=== PATIENT | female | born 1990 | race Caucasian/White ===

== ENCOUNTER → 2019-01-12 | Outpatient (CLI) | payer OTHER, SELFPAY ==
[2019-01-10 10:26] VITALS: BMI 20.6
[2019-01-12 08:35] LABS: Estradiol 37.7 pg/mL; Follicle Stimulating Hormone 6.5 mIU/mL; Prolactin 23.5 ng/mL; Thyroid Stim Hormone (TSH) 3.67 uIU/mL (0.358-3.74)
== END | disposition home or self-care (01) ==
LOC: LAB 07:02
PROVIDERS: Family Provider Family Medicine; PCP Family Medicine; Referring Provider Obstetrics & Gynecology; Visit Provider Obstetrics & Gynecology
DX: N97.9 Female infertility, unspecified (principal); N94.6 Dysmenorrhea, unspecified
CPT/HCPCS: 36415; 82670; 83001; 84146; 84443

== ENCOUNTER → 2019-01-16 | Outpatient (CLI) | payer OTHER, SELFPAY ==
[2019-01-10 10:26] VITALS: BMI 20.6
--- NOTE | 2019-01-16 11:17 | US_ITS ---
STUDY: ULTRASOUND OF THE FEMALE PELVIS - COMPLETE REASON FOR EXAM: Female, 28 years old. Dysmenorrhea LMP: Unknown. TECHNIQUE: Transabdominal and Transvaginal TECHNICAL QUALITY: Adequate. COMPARISON: None. FINDINGS: The uterus is anteverted and is in a midline position. The uterus measures 7.0 x 4.0 x 3.0 cm. Normal uterine cervix. The endometrium measures 5.0 mm in thickness, and is fluid distended. There is no demonstrated endometrial mass. There is no demonstrated myometrial mass. I.U.D. - The patient does not have an I.U.D. The right ovary is visualized. The right ovary measures 3.2 x 2.4 x 2.4 cm. There is no right ovarian cyst or ovarian mass. There is no visualized right adnexal mass or complex lesion. There is normal arterial and normal venous vascularity. The left ovary is visualized. The left ovary measures 2.7 x 2.2 x 1.5 cm. There is no left ovarian cyst or ovarian mass. There is no visualized left adnexal mass or complex lesion. There is normal arterial and normal venous vascularity. There is no fluid in the cul-de-sac. The bladder is sonographically normal US/Transvaginal Non- IMPRESSION: Fluid distended uterus, likely due to hemorrhage. The uterus is heterogeneous but there is no discrete lesion. Sonographically normal ovaries No demonstrated free fluid Electronically Signed: Benja Lemons MD at 14:03 EDT , Service support ,
--- NOTE | 2019-01-16 11:17 | US_ITS ---
STUDY: ULTRASOUND OF THE FEMALE PELVIS - COMPLETE REASON FOR EXAM: Female, 28 years old. Dysmenorrhea LMP: Unknown. TECHNIQUE: Transabdominal and Transvaginal TECHNICAL QUALITY: Adequate. COMPARISON: None. FINDINGS: The uterus is anteverted and is in a midline position. The uterus measures 7.0 x 4.0 x 3.0 cm. Normal uterine cervix. The endometrium measures 5.0 mm in thickness, and is fluid distended. There is no demonstrated endometrial mass. There is no demonstrated myometrial mass. I.U.D. - The patient does not have an I.U.D. The right ovary is visualized. The right ovary measures 3.2 x 2.4 x 2.4 cm. There is no right ovarian cyst or ovarian mass. There is no visualized right adnexal mass or complex lesion. There is normal arterial and normal venous vascularity. The left ovary is visualized. The left ovary measures 2.7 x 2.2 x 1.5 cm. There is no left ovarian cyst or ovarian mass. There is no visualized left adnexal mass or complex lesion. There is normal arterial and normal venous vascularity. There is no fluid in the cul-de-sac. The bladder is sonographically normal US/Pelvic (Non ) IMPRESSION: Fluid distended uterus, likely due to hemorrhage. The uterus is heterogeneous but there is no discrete lesion. Sonographically normal ovaries No demonstrated free fluid Electronically Signed: Benja Lemons MD at 14:03 EDT , Service support ,
[2019-01-16 12:19] LABS: Free T3 2.7 pg/mL (2.18-3.98); T4 Free Direct 0.92 ng/dL (0.76-1.46)
== END | disposition home or self-care (01) ==
LOC: US 11:09
PROVIDERS: Family Provider Family Medicine; PCP Family Medicine; Referring Provider Obstetrics & Gynecology; Visit Provider Obstetrics & Gynecology
DX: N97.9 Female infertility, unspecified (principal); N94.6 Dysmenorrhea, unspecified; R79.89 Other specified abnormal findings of blood chemistry
CPT/HCPCS: 36415; 76830; 76856; 84439; 84481; 93976

== ENCOUNTER → 2019-01-18 | Outpatient (CLI) | payer OTHER, SELFPAY ==
[2019-01-10 10:26] VITALS: BMI 20.6
--- NOTE | 2019-01-18 14:55 | RAD_ITS ---
STUDY: HYSTEROSALPINGOGRAM REASON FOR EXAM: Female, 28 years old. Infertility FLUOROSCOPY TIME (if supplied): (0:17) minutes/seconds TECHNIQUE: Examination was performed by Dr. Nichole, fluoroscopy provided by Dr. Lemons COMPARISON: None. FINDINGS: Under fluoroscopic evaluation, an HSG was performed. Dr. Nichole place the catheter tip within the cervix, and injected contrast into the endometrium and fallopian tubes. There is a normal-appearing endometrium there is no impingement by mass lesion, and there is free flow of contrast into the fallopian tubes and into the pelvis. No stricture or obstruction noted. RAD/Salpingogram IMPRESSION: Normal study Electronically Signed: Benja Lemons MD at 7:46 EDT , Service support ,
--- NOTE | 2019-01-18 19:03 | OP.PCM_ITS ---
Problem List (1) Primary female infertility Status: Acute Comment: days 3 FSH, TSH, estradiol, prolactin, HSG day 7-10, pelvic ultrasound, semen analysis Report of Operation Date of Procedure: 01/18/19 Description of Procedure: Preop diagnosis: Infertility Postop diagnosis: Same plus bilateral tubal patency Procedure: Hysterosalpingogram Surgeon: Twyla Nichole Implantable devices: None Complications: None Findings: Bilateral tubal patency and normal uterine cavity Operative details: Patient was taken to the x-ray room and was placed on the x- ray table and was in the dorsal lithotomy position. Speculum was placed in the vagina and the cervix prepped with Betadine and the HSG catheter was easily introduced into the uterus and speculum removed. Radiologist was brought in and while pushing radiopaque dye into the uterus via the HSG catheter the radiologist took multiple images and views and confirmed bilateral tubal patency seen. No gross uterine filling defects or abnormalities were seen. All instruments removed from the vagina and the uterus without complication. Patient tolerated the procedure well.
== END | disposition home or self-care (01) ==
LOC: RAD 14:49
PROVIDERS: Family Provider Family Medicine; PCP Family Medicine; Referring Provider Obstetrics & Gynecology; Visit Provider Obstetrics & Gynecology
DX: N97.9 Female infertility, unspecified (principal)
CPT/HCPCS: 58340; 74740; Q9967

== ENCOUNTER → 2020-04-23 07:16 | Outpatient (CLI) | payer OTHER, SELFPAY ==
[2019-01-10 10:26] VITALS: BMI 20.6
[2020-04-23 07:49] LABS: hCG Titer Quant., Serum < 1 mIU/mL (1-3)
== END ==
PROVIDERS: PCP Family Medicine; Referring Provider Obstetrics & Gynecology Reproductive Endocrinology; Visit Provider Obstetrics & Gynecology Reproductive Endocrinology
DX: Z32.00 Encounter for pregnancy test, result unknown (principal)
CPT/HCPCS: 36415; 84702

== ENCOUNTER → 2020-11-19 07:29 | Outpatient (CLI) | payer OTHER, SELFPAY ==
[2019-01-10 10:26] VITALS: BMI 20.6
[2020-11-19 08:09] LABS: hCG Titer Quant., Serum 188 mIU/mL (1-3)
== END ==
PROVIDERS: PCP Family Medicine; Referring Provider Obstetrics & Gynecology Reproductive Endocrinology; Visit Provider Obstetrics & Gynecology Reproductive Endocrinology
DX: Z32.00 Encounter for pregnancy test, result unknown (principal)
CPT/HCPCS: 36415; 84702

== ENCOUNTER → 2020-11-21 07:19 | Outpatient (CLI) | payer OTHER, SELFPAY ==
[2019-01-10 10:26] VITALS: BMI 20.6
[2020-11-21 08:07] LABS: hCG Titer Quant., Serum 378 mIU/mL (1-3)
== END ==
PROVIDERS: PCP Family Medicine; Referring Provider Obstetrics & Gynecology Reproductive Endocrinology; Visit Provider Obstetrics & Gynecology Reproductive Endocrinology
DX: Z32.01 Encounter for pregnancy test, result positive (principal)
CPT/HCPCS: 36415; 84702

== ENCOUNTER → 2021-01-08 07:53 | Outpatient (CLI) | payer OTHER, SELFPAY ==
[2019-01-10 10:26] VITALS: BMI 20.6
[2021-01-08 09:00] LABS: NATERA MAILED SPECIMEN
== END ==
PROVIDERS: PCP Family Medicine
DX: O30.031 Twin pregnancy, monochorionic/diamniotic, first trimester (principal); Z36.82 Encounter for antenatal screening for nuchal translucency; Z3A.00 Weeks of gestation of pregnancy not specified
CPT/HCPCS: 36415

== ENCOUNTER → 2021-04-23 07:38 | Outpatient (CLI) | payer OTHER, SELFPAY ==
[2021-04-23 09:14] LABS: Absolute Lymphocyte Count 1.48 X10^3/uL (0.83-4.51); Absolute Neutrophil Count 6.4 X10^3/uL (2.0-7.7); Basophil# 0.03 X10^3/uL; Basophil% 0.3 % (0-1); Eosinophil# 0.08 X10^3/uL; Eosinophils% 0.9 % (0-5); Hemoglobin 12.9 g/dL (12.0-15.0); Lymphocyte # 1.48 X10^3/ul (0.83-4.51); Lymphocyte % 17.1 % (19-41); Mean Corp Hgb Conc 34.9 g/dL (32-36); Mean Corpuscular Hgb 32.7 pg (27.0-32.0); Mean Corpuscular Volume 93.7 fL (81-99); Mean Platelet Vol. 11.3 fl (6.2-12.0); Monocyte# 0.54 X10^3/uL; Monocyte% 6.2 % (0-10); NRBC Flagged by Analyzer 0 % (0-5); Neutrophil # 6.43 X10^3/uL (2.7-7.7); Neutrophil % 74.2 % (47-70); Platelet Count 290 K/mm3 (150-450); RBC Distribution Width SD 44.6 fl (35.1-43.9); Red Blood Count 3.95 M/mm3 (4.2-5.4); White Blood Count 8.7 K/mm3 (4.4-11.0)
[2021-04-23 09:37] LABS: Glucose Challenge Gest 1H 50g 151 mg/dL (70-140)
== END ==
PROVIDERS: PCP Family Medicine; Referring Provider Obstetrics & Gynecology; Visit Provider Obstetrics & Gynecology
DX: Z34.92 Encounter for supervision of normal pregnancy, unspecified, second trimester (principal); Z13.1 Encounter for screening for diabetes mellitus
CPT/HCPCS: 36415; 82950; 85025

== ENCOUNTER → 2021-04-27 06:46 | Outpatient (CLI) | payer OTHER, SELFPAY ==
[2021-04-27 08:33] LABS: Glucose GTT-Gestation. Fasting 72 mg/dL (<105)
[2021-04-27 08:38] LABS: Glucose GTT-Gestational 1 Hr 161 mg/dL (<190)
[2021-04-27 08:51] LABS: T4 Free Direct 0.88 ng/dL (0.76-1.46); Thyroid Stim Hormone (TSH) 2.91 uIU/mL (0.358-3.74)
[2021-04-27 09:35] LABS: Glucose GTT-Gestational 2 Hr 150 mg/dL (<165)
[2021-04-27 11:05] LABS: Glucose GTT-Gestational 3 Hr 138 L (<145)
== END ==
PROVIDERS: PCP Family Medicine; Referring Provider Obstetrics & Gynecology; Visit Provider Obstetrics & Gynecology
DX: Z34.92 Encounter for supervision of normal pregnancy, unspecified, second trimester (principal); Z3A.26 26 weeks gestation of pregnancy
CPT/HCPCS: 36415; 82951; 82952; 84439; 84443; 86850; 86900; 86901

== ENCOUNTER 2021-06-18 10:55 | Outpatient (CLI) | payer OTHER, SELFPAY ==
[2021-06-18 11:08] VITALS: BMI 27.3
[2021-06-18 11:11] VITALS: BP 139/86; PULSE 63; PULSE 67; TEMP 37.2; O2SAT 98
[2021-06-18 11:16] VITALS: PULSE 68; O2SAT 97
[2021-06-18 11:41] LABS: ROM Internal Control Test YES-OK TO RESULT pt. (Internal QC); ROM Patient Test Negative (Negative)
--- NOTE | 2021-07-01 21:02 | OB.TRI.HP_ITS ---
HPI - General HPI Narrative SRINIVASA KNIGHT, is a 31y/o @34 weeks who presents 06/18/2021 for possible leaking of fluid. This is her first and she is carrying mono/di twin girls via IVF Maternal Data Information MAGDALENA Calculator Estimated Delivery Date Method Current WG Current Estimate 07/29/21 LMP (Certain) 36w 0d # 2 PFSH PFSH Medical History (Updated 07/01/21 @ 21:[address] Andree Castillo DO) Abnormal glucose affecting Infertility Thyroid disorder Home Medications ferrous sulfate 325 mg (65 mg iron) tablet 325 mg PO DAILY 04/23/21 [History Last Taken 06/18/21 08:00] vitamins no.119-iron fumarate 29 mg-folic acid 1 mg tablet 1 tab PO DAILY 05/05/21 [History Last Taken 06/18/21 08:00] levothyroxine [Synthroid] 12.5 mcg PO DAILY 06/18/21 [History Last Taken 06/18/21 08:00] docusate sodium [Colace] 100 mg PO DAILY 14 Days #14 cap 06/21/21 [Rx Last Taken Unknown] ibuprofen 800 mg PO Q8H PRN 7 Days #30 tab 06/21/21 [Rx Last Taken Unknown] oxycodone-acetaminophen [Percocet] 1 tab PO Q4H PRN 7 Days #28 tab 06/21/21 [Rx Last Taken Unknown] citalopram 20 mg PO DAILY #30 tab 06/24/21 [Rx Last Taken Unknown] ibuprofen 600 mg PO Q6H #30 tab 06/24/21 [Rx Last Taken Unknown] oxycodone 5 - 10 mg PO Q4H PRN PRN 7 Days #20 tab 06/24/21 [Rx Last Taken Unknown] Allergy/AdvReac Type Severity Reaction Status Date / Time No Known Allergies Allergy Verified 06/20/21 13:33 Family History Father Cancer skin Sister Cancer hodgkins lymphoma 2010 Surgical History (Updated 06/21/21 @ 02:[address] 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 Elective abortions Hx Para 0 Spontaneous abortions 1 Hx # Term Pregnancies Ectopic pregnancies Hx # Pregnancies Multiple births # of living children 0 Visit Details Expected Delivery Route/Plan if vtx vtx Labor Preferences- CB/BF classes: yes labor support person: Rachid labor intervention preferences: [] pain management options preferred: epidural cut cord/dad catch: yes : [] PP control planned: [] discussed possible routes of delivery and associated risks: [] special requests: [] Plans covid status: vaccinated september 2020 moderna flu vaccine: given tdap vaccine: discussed rhogam: na LARC form signed: declined movement and labor precautions reviewed. Problem list reviewed and updated with the most current plan of care details and appropriate orders placed. Relevant counseling for the gestational age provided. Continue routine care and follow up unless otherwise noted in visit notes/problem list details OB Flowsheet Initial Weight: 125 lb Date -?-?-?-?-?-?-?-?-?-?-?-?- EGA Weight BP Urine Prot -?-?-?-?-?-?-?-?-?-?-?-?- Glucose FHR FuHt Pres Dilation -?-?-?-?-?-?-?-?-?-?-?-?- Effaced St Visit Note 01/16/21 -?-?-?-?-?-?-?-?-?-?-?-?- 12w 2d 129 lb (+4 lb) -?-?-?-?-?-?-?-?-?-?-?-?- A 168 -?-?-?-?-?-?-?-?-?-?-?-?- B 165 A -?-?-?-?-?-?-?-?-?-?-?-?- B -?-?-?-?-?-?-?-?-?-?-?-?- A -?-?-?-?-?-?-?-?-?-?-?-?- B A SM- doing well -?-?-?-?-?-?-?-?-?-?-?-?- B 01/30/21 -?-?-?-?-?-?-?-?-?-?-?-?- 14w 2d 133 lb (+8 lb) Negative -?-?-?-?-?-?-?-?-?-?-?-?- Negative A 155 -?-?-?-?-?-?-?-?-?-?-?-?- B 160 A -?-?-?-?-?-?-?-?-?-?-?-?- B -?-?-?-?-?-?-?-?-?-?-?-?- A -?-?-?-?-?-?-?-?-?-?-?-?- B A SM- no vb crampi ng. -?-?-?-?-?-?-?-?-?-?-?-?- B 02/25/21 -?-?-?-?--?-?-?-?-?-?-?-?- 18w 0d 138 lb 6 oz (+13 lb 6 oz) 126/80 Negative -?-?-?-?-?-?-?-?-?-?-?-?- Negative A 155 -?-?-?-?-?-?-?-?-?-?-?-?- B 150 A -?-?-?-?-?-?-?-?-?-?-?-?- B -?-?-?-?-?-?-?-?-?-?-?-?- A -?-?-?-?-?-?-?-?-?-?-?-?- B A GP - no cramping or bleeding. Discussed timing of delivery with mono-di twins. -?-?-?-?-?-?-?-?-?-?-?-?- B 03/25/21 -?-?-?-?-?-?-?-?-?-?-?-?- 22w 0d 145 lb (+20 lb) -?-?-?--?-?-?-?-?-?-?-?-?- A 155 -?-?-?-?-?-?-?-?-?-?-?-?- B 160 A -?-?-?-?-?-?-?-?-?-?-?-?- B -?-?-?-?-?-?-?-?-?-?-?-?- A -?-?-?-?-?-?-?-?-?-?--?-?- B A SM- no vb elsii ng -?-?-?-?-?-?-?-?-?-?-?-?- B 04/23/21 -?-?-?-?-?-?-?-?-?-?-?-?- 26w 1d 150 lb (+25 lb) 132/82 -?-?-?-?-?-?-?-?-?-?-?-?- A 165 -?-?-?-?-?-?-?-?-?-?-?-?- B 130 A -?-?-?-?-?-?-?-?-?-?-?-?- B -?-?-?-?-?-?-?-?-?-?-?-?- A -?-?-?-?-?-?-?-?-?-?-?-?- B A Sm- no vb lof go od fm no regular ctx needs 3 hour gtt -?-?-?-?-?-?-?-?-?-?-?-?- B 05/05/21 -?-?-?-?-?-?-?-?-?-?-?-?- 27w 6d 152 lb (+27 lb) 114/70 -?-?-?-?-?-?-?-?-?-?-?-?- A 130 -?-?-?-?-?-?-?-?-?-?-?-?- B 140 A -?-?-?-?-?-?-?-?-?-?-?-?- B -?-?-?-?-?-?-?-?-?-?-?-?- A -?-?-?-?-?-?-?-?-?-?-?-?- B A SM- no vb lof go od fm no regular ctx -?-?-?-?-?-?-?-?-?-?-?-?- B 05/19/21 -?-?-?-?-?--?-?-?-?-?-?-?- 29w 6d 154 lb (+29 lb) 132/80 Negative -?-?-?-?-?-?-?-?-?-?-?-?- Negative A 145 -?-?-?-?-?-?-?-?-?-?-?-?- B 135 A Cephalic -?-?-?-?-?-?-?-?-?-?-?-?- B Cephalic -?-?-?-?-?-?-?-?-?-?-?-?- A -?-?-?-?-?-?-?-?-?-?-?-?- B A m- no vb lof goo d fm no regular ctx -?-?-?-?-?-?-?-?-?-?-?-?- B 06/01/21 -?-?-?-?-?-?-?-?-?-?-?-?- 31w 5d 157 lb (+32 lb) 112/74 Negative -?-?-?-?-?-?-?-?-?-?-?-?- Negative A 145 -?-?-?-?-?-?-?-?-?-?-?-?- B 145 A -?-?-?-?-?-?-?-?-?-?-?-?- B -?-?-?-?-?-?-?-?-?-?-?-?- A -?-?-?-?-?-?-?-?-?-?-?-?- B A SM- no vb lof go od fm no regular ctx -?-?-?-?-?-?-?-?-?-?-?-?- B 06/10/21 -?-?-?-?-?-?-?-?-?-?-?-?- 33w 0d 162 lb (+37 lb) 118/62 Negative -?-?-?-?-?-?-?-?-?-?-?-?- A 160 -?-?-?-?-?-?-?-?-?-?-?-?- B 163 A Cephalic -?-?-?-?-?-?-?-?-?-?-?-?- B Cephalic 0 -?-?-?-?--?-?-?-?-?-?-?-?- 40 A -3 -?-?-?-?-?-?-?-?-?-?-?-?- B A JV- pt is having some pelvic discomfort and feels abdomen tightening. cx closed. mfm appts every tuesday now. -?-?-?-?-?-?-?-?-?-?-?-?- B 06/18/21 -?-?-?-?-?-?-?-?-?-?-?-?- 34w 1d 164 lb 0.383 oz (+39 lb 0.383 oz) 139/86 -?-?-?-?-?-?-?-?-?-?-?-?- A -?-?-?-?-?-?-?-?-?-?-?-?- B A -?-?-?-?-?-?-?-?-?-?-?-?- B -?-?-?-?-?-?-?-?-?-?-?-?- A -?-?-?-?-?-?-?-?-?-?-?-?- B A -?-?-?-?-?-?-?-?-?-?-?-?- B 06/20/21 -?-?-?-?-?-?-?-?-?-?-?-?- 35w 0d 163 lb 2.273 oz (+38 lb 2.273 oz) 132/77 137/83 135/87 123/72 123/72 125/76 125/81 124/57 108/58 106/59 95/58 95/58 102/69 102/69 157/110 157/110 182/128 122/56 122/56 121/68 121/68 120/67 120/67 124/67 124/67 127/70 127/70 127/70 127/76 132/83 30 mg/dl (Negative) H -?-?-?-?-?-?-?-?-?-?-?-?- A -?-?-?-?-?-?-?-?-?-?-?-?- B A -?-?-?-?-?-?-?-?-?-?-?-?- B -?-?-?-?-?-?-?-?-?-?-?-?- A -?-?-?-?-?-?-?-?-?-?-?-?- B A admitted for PPR OM -?-?-?-?-?-?-?-?-?-?-?-?- B ROS Constitutional Constitutional: Reports systems reviewed and no addt'l complaints, except as documented Gastrointestinal Gastrointestinal: Denies bloating, constipation, cramping, diarrhea, nausea or vomiting Genitourinary Genitourinary: Reports other Details: Denies vaginal odor, vaginal bleeding, or vaginal discharge ; Denies difficulty urinating or flank pain Physical Exam HEENT normocephalic Resp normal respiratory effort and normal air movement no CVA tenderness Amniotic Fluid: Negative for ROM+plus Extremity normal to inspection General Extremity: edema bilateral (trace ) NST FHR Rate Baby A Baseline: 140 Variability:: Moderate Accelerations:: 15 x 15 Decelerations:: None NST Reactive:: Yes FHR Category:: Category I FHR Rate Baby B Baseline: 140 Variability:: Moderate Accelerations:: 15 x 15 Decelerations:: None NST Reactive:: Yes FHR Category:: Category I Assessment & Plan (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 (2) Monochorionic diamniotic twin gestation: PLAN: reactive NST x 2 (both twins), ROM + was negative. labor precautions discussed RTO in 4 days for further assessment. Charges/Coding Multi Select Codes Visit Charges Office Visit/Consults: 81407 OV L3 Est Urinary/Genital Urinary/Genital CPT Codes: 81601-24 non-stress test Interp
--- NOTE | 2021-07-01 21:02 | OB.TRI.NOTE ---
HPI - General HPI Narrative SRINIVASA KNIGHT, is a 31y/o @34 weeks who presents 06/18/2021 for possible leaking of fluid. This is her first and she is carrying mono/di twin girls via IVF Maternal Data Information MAGDALENA Calculator Estimated Delivery Date Method Current WG Current Estimate 07/29/21 LMP (Certain) 36w 0d # 2 PFSH PFSH Medical History (Updated 07/01/21 @ 21:[address] Andree Castillo DO) Abnormal glucose affecting Infertility Thyroid disorder Home Medications ferrous sulfate 325 mg (65 mg iron) tablet 325 mg PO DAILY 04/23/21 [History Last Taken 06/18/21 08:00] vitamins no.119-iron fumarate 29 mg-folic acid 1 mg tablet 1 tab PO DAILY 05/05/21 [History Last Taken 06/18/21 08:00] levothyroxine [Synthroid] 12.5 mcg PO DAILY 06/18/21 [History Last Taken 06/18/21 08:00] docusate sodium [Colace] 100 mg PO DAILY 14 Days #14 cap 06/21/21 [Rx Last Taken Unknown] ibuprofen 800 mg PO Q8H PRN 7 Days #30 tab 06/21/21 [Rx Last Taken Unknown] oxycodone-acetaminophen [Percocet] 1 tab PO Q4H PRN 7 Days #28 tab 06/21/21 [Rx Last Taken Unknown] citalopram 20 mg PO DAILY #30 tab 06/24/21 [Rx Last Taken Unknown] ibuprofen 600 mg PO Q6H #30 tab 06/24/21 [Rx Last Taken Unknown] oxycodone 5 - 10 mg PO Q4H PRN PRN 7 Days #20 tab 06/24/21 [Rx Last Taken Unknown] Allergy/AdvReac Type Severity Reaction Status Date / Time No Known Allergies Allergy Verified 06/20/21 13:33 Family History Father Cancer skin Sister Cancer hodgkins lymphoma 2010 Surgical History (Updated 06/21/21 @ 02:[address] 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 Hx Para 0 Spontaneous abortions 1 Hx # Term Pregnancies Ectopic pregnancies Hx # Pregnancies Multiple births # of living children 0 Visit Details Expected Delivery Route/Plan if vtx vtx Labor Preferences- CB/BF classes: yes labor support person: Rachid labor intervention preferences: [] pain management options preferred: epidural cut cord/dad catch: yes : [] PP control planned: [] discussed possible routes of delivery and associated risks: [] special requests: [] Plans covid status: vaccinated september 2020 moderna flu vaccine: given tdap vaccine: discussed rhogam: na LARC form signed: declined movement and labor precautions reviewed. Problem list reviewed and updated with the most current plan of care details and appropriate orders placed. Relevant counseling for the gestational age provided. Continue routine care and follow up unless otherwise noted in visit notes/problem list details OB Flowsheet Initial Weight: 125 lb Date <del>?</del> EGA Weight BP Urine Prot <del>?</del> Glucose FHR FuHt Pres Dilation <del>?</del> Effaced St Visit Note 01/16/21 <del>?</del> 12w 2d 129 lb (+4 lb) <del>?</del> A 168 <del>?</del> B 165 A <del>?</del> B <del>?</del> A <del>?</del> B A SM- doing well <del>?</del> B 01/30/21 <del>?</del> 14w 2d 133 lb (+8 lb) Negative <del>?</del> Negative A 155 <del>?</del> B 160 A <del>?</del> B <del>?</del> A <del>?</del> B A SM- no vb cramping. <del>?</del> B 02/25/21 <del>?</del> 18w 0d 138 lb 6 oz (+13 lb 6 oz) 126/80 Negative <del>?</del> Negative A 155 <del>?</del> B 150 A <del>?</del> B <del>?</del> A <del>?</del> B A GP - no cramping or bleeding. Discussed timing of delivery with mono-di twins. <del>?</del> B 03/25/21 <del>?</del> 22w 0d 145 lb (+20 lb) <del>?</del> A 155 <del>?</del> B 160 A <del>?</del> B <del>?</del> A <del>?</del> B A SM- no vb cramping <del>?</del> B 04/23/21 <del>?</del> 26w 1d 150 lb (+25 lb) 132/82 <del>?</del> A 165 <del>?</del> B 130 A <del>?</del> B <del>?</del> A <del>?</del> B A Sm- no vb lof good fm no regular ctx needs 3 hour gtt <del>?</del> B 05/05/21 <del>?</del> 27w 6d 152 lb (+27 lb) 114/70 <del>?</del> A 130 <del>?</del> B 140 A <del>?</del> B <del>?</del> A <del>?</del> B A SM- no vb lof good fm no regular ctx <del>?</del> B 05/19/21 <del>?</del> 29w 6d 154 lb (+29 lb) 132/80 Negative <del>?</del> Negative A 145 <del>?</del> B 135 A Cephalic <del>?</del> B Cephalic <del>?</del> A <del>?</del> B A m- no vb lof good fm no regular ctx <del>?</del> B 06/01/21 <del>?</del> 31w 5d 157 lb (+32 lb) 112/74 Negative <del>?</del> Negative A 145 <del>?</del> B 145 A <del>?</del> B <del>?</del> A <del>?</del> B A SM- no vb lof good fm no regular ctx <del>?</del> B 06/10/21 <del>?</del> 33w 0d 162 lb (+37 lb) 118/62 Negative <del>?</del> A 160 <del>?</del> B 163 A Cephalic <del>?</del> B Cephalic 0 <del>?</del> 40 A -3 <del>?</del> B A JV- pt is having some pelvic discomfort and feels abdomen tightening. cx closed. mfm appts every tuesday now. <del>?</del> B 06/18/21 <del>?</del> 34w 1d 164 lb 0.383 oz (+39 lb 0.383 oz) 139/86 <del>?</del> A <del>?</del> B A <del>?</del> B <del>?</del> A <del>?</del> B A <del>?</del> B 06/20/21 <del>?</del> 35w 0d 163 lb 2.273 oz (+38 lb 2.273 oz) 132/77 137/83 135/87 123/72 123/72 125/76 125/81 124/57 108/58 106/59 95/58 95/58 102/69 102/69 157/110 157/110 182/128 122/56 122/56 121/68 121/68 120/67 120/67 124/67 124/67 127/70 127/70 127/70 127/76 132/83 30 mg/dl (Negative) H <del>?</del> A <del>?</del> B A <del>?</del> B <del>?</del> A <del>?</del> B A admitted for PPROM <del>?</del> B ROS Constitutional Constitutional: Reports systems reviewed and no addt'l complaints, except as documented Gastrointestinal Gastrointestinal: Denies bloating, constipation, cramping, diarrhea, nausea or vomiting Genitourinary Genitourinary: Reports other Details: Denies vaginal odor, vaginal bleeding, or vaginal discharge ; Denies difficulty urinating or flank pain Physical Exam HEENT normocephalic Resp normal respiratory effort and normal air movement no CVA tenderness Amniotic Fluid: Negative for ROM+plus Extremity normal to inspection General Extremity: edema bilateral (trace ) NST FHR Rate Baby A Baseline: 140 Variability:: Moderate Accelerations:: 15 x 15 Decelerations:: None NST Reactive:: Yes FHR Category:: Category I FHR Rate Baby B Baseline: 140 Variability:: Moderate Accelerations:: 15 x 15 Decelerations:: None NST Reactive:: Yes FHR Category:: Category I Assessment & Plan (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 (2) Monochorionic diamniotic twin gestation: PLAN: reactive NST x 2 (both twins), ROM + was negative. labor precautions discussed RTO in 4 days for further assessment. Charges/Coding Multi Select Codes Visit Charges Office Visit/Consults: 06823 OV L3 Est Urinary/Genital Urinary/Genital CPT Codes: 38798-48 non-stress test Interp
== END 2021-06-18 12:05 | disposition home or self-care (01) ==
LOC: WPOUT 10:58 → WP 10:59
PROVIDERS: PCP Family Medicine; Visit Provider Obstetrics & Gynecology
DX: O99.283 Endocrine, nutritional and metabolic diseases complicating pregnancy, third trimester (principal); E71.310 Long chain/very long chain acyl CoA dehydrogenase deficiency; E07.9 Disorder of thyroid, unspecified; O30.033 Twin pregnancy, monochorionic/diamniotic, third trimester; Z3A.34 34 weeks gestation of pregnancy; Z79.899 Other long term (current) drug therapy
CPT/HCPCS: 59025; 59050; 84112; 99218; G0378

== ENCOUNTER 2021-06-20 14:00 | Inpatient (IN) | payer OTHER, SELFPAY ==
[2021-06-20] VITALS (19 sets, daily range): BP systolic 123–137; BP diastolic 72–87; PULSE 52–71; RESP 18; TEMP 36.8–37.2; O2SAT 97–99; BMI 27.1
[2021-06-20 13:58] LABS: ROM Internal Control Test YES-OK TO RESULT pt. (Internal QC)
[2021-06-20 13:59] LABS: ROM Patient Test POSITIVE (Negative)
--- NOTE | 2021-06-20 14:43 | HP.PCM.OB_ITS ---
HPI - General General Date of Admission: 06/20/21 HPI Narrative SRINIVASA KNIGHT, is a 31 @ 34 weeks 3 days who presents to L&D after experiencing a large gush of fluid at 9am. She presented to l&D at around 2 pm. She denies fevers, vaginal bleeding ,or dec fm. Her is a result of IVF and she is with twin mono/di girls. Maternal Data Information MAGDALENA Calculator Estimated Delivery Date Method Current WG Current Estimate 07/29/21 LMP (Certain) 34w 3d # 2 PFSH PFSH Medical History Abnormal glucose affecting Home Medications ferrous sulfate 325 mg (65 mg iron) tablet 325 mg PO DAILY 04/23/21 [History Last Taken 06/18/21 08:00] vitamins no.119-iron fumarate 29 mg-folic acid 1 mg tablet 1 tab PO DAILY 05/05/21 [History Last Taken 06/18/21 08:00] aspirin [Aspir-Low] 81 mg PO DAILY 06/18/21 [History Last Taken 06/18/21 08:00] levothyroxine [Synthroid] 12.5 mcg PO DAILY 06/18/21 [History Last Taken 06/18/21 08:00] Allergy/AdvReac Type Severity Reaction Status Date / Time No Known Allergies Allergy Verified 06/20/21 13:33 Family History Father Cancer skin Sister Cancer hodgkins lymphoma 2010 Surgical History History of wisdom tooth extraction, class II edentulism Social History Smoking Status: Never smoker alcohol intake: current details: social substance use type: does not use caffeine: Yes what type of physical activity do you participate in: walking frequency: 5-6 times per week seatbelt use: always do you feel safe at home: Yes additional social history: Rachid- 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 [employer] History 2 Elective abortions Hx Para 0 Spontaneous abortions 1 Hx # Term Pregnancies Ectopic pregnancies Hx # Pregnancies Multiple births # of living children 0 Visit Details Expected Delivery Route/Plan if vtx vtx Labor Preferences- CB/BF classes: yes labor support person: Rachid labor intervention preferences: [] pain management options preferred: epidural cut cord/dad catch: yes : [] PP control planned: [] discussed possible routes of delivery and associated risks: [] special requests: [] Plans covid status: vaccinated september 2020 moderna flu vaccine: given tdap vaccine: discussed rhogam: na LARC form signed: declined movement and labor precautions reviewed. Problem list reviewed and updated with the most current plan of care details and appropriate orders placed. Relevant counseling for the gestational age provided. Continue routine care and follow up unless otherwise noted in visit notes/problem list details OB Flowsheet Initial Weight: 125 lb Date -?-?-?-?-?-?-?-?-?-?-?-?- EGA Weight BP Urine Prot -?-?-?-?-?-?-?-?-?-?-?-?- Glucose FHR FuHt Pres Dilation -?-?-?-?-?-?-?-?-?-?-?-?- Effaced St Visit Note 01/16/21 -?-?-?-?-?-?-?-?-?-?-?-?- 12w 2d 129 lb (+4 lb) -?-?-?-?-?-?-?-?-?-?-?-?- A 168 -?-?-?-?-?-?-?-?-?-?-?-?- B 165 A -?-?-?-?-?-?-?-?-?-?-?-?- B -?-?-?-?-?-?-?-?-?-?-?-?- A -?-?-?-?-?-?-?-?-?-?-?-?- B A SM- doing well -?-?-?-?-?-?-?-?-?-?-?-?- B 01/30/21 -?-?-?-?-?-?-?-?-?-?-?-?- 14w 2d 133 lb (+8 lb) Negative -?-?-?-?-?-?-?-?-?-?-?-?- Negative A 155 -?-?-?-?-?-?-?-?-?-?-?-?- B 160 A -?-?-?-?-?-?-?-?-?-?-?-?- B -?-?-?-?-?-?-?-?-?-?-?-?- A -?-?-?-?-?-?-?-?-?-?-?-?- B A SM- no vb crampi ng. -?-?-?-?-?-?-?-?-?-?-?-?- B 02/25/21 -?-?-?-?-?-?-?-?-?-?-?-?- 18w 0d 138 lb 6 oz (+13 lb 6 oz) 126/80 Negative -?-?-?-?-?-?-?-?-?-?-?-?- Negative A 155 -?-?-?-?-?-?-?-?-?-?-?-?- B 150 A -?-?-?-?-?-?-?-?-?-?-?-?- B -?-?-?-?-?-?-?-?-?-?-?-?- A -?-?-?-?-?-?-?-?-?-?-?-?- B A GP - no cramping or bleeding. Discussed timing of delivery with mono-di twins. -?-?-?-?-?-?-?-?-?-?-?-?- B 03/25/21 -?-?-?-?-?-?-?-?-?-?-?-?- 22w 0d 145 lb (+20 lb) -?-?-?-?-?-?-?-?-?-?-?-?- A 155 -?-?-?-?-?-?-?-?-?-?-?-?- B 160 A -?-?-?-?-?-?-?-?-?-?-?-?- B -?-?-?-?-?-?-?-?-?-?-?-?- A -?-?-?-?-?-?-?-?-?-?-?-?- B A SM- no vb isiah ng -?-?-?-?-?-?-?-?-?-?-?-?- B 04/23/21 -?-?-?-?-?-?-?-?-?-?-?-?- 26w 1d 150 lb (+25 lb) 132/82 -?-?-?-?-?-?-?-?-?-?-?-?- A 165 -?-?-?-?-?-?-?-?-?-?-?-?- B 130 A -?-?-?-?-?-?-?-?-?-?-?-?- B -?-?-?-?-?-?-?-?-?-?-?-?- A -?-?-?-?-?-?-?-?-?-?-?-?- B A Sm- no vb lof go od fm no regular ctx needs 3 hour gtt -?-?-?-?-?-?-?-?-?-?-?-?- B 05/05/21 -?-?-?-?-?-?-?-?-?-?-?-?- 27w 6d 152 lb (+27 lb) 114/70 -?-?-?-?-?-?-?-?-?-?-?-?- A 130 -?-?-?-?-?-?-?-?-?-?-?-?- B 140 A -?-?-?-?-?-?-?-?-?-?-?-?- B -?-?-?-?-?-?-?-?-?-?-?-?- A -?-?-?-?-?-?-?-?-?-?-?-?- B A SM- no vb lof go od fm no regular ctx -?-?-?-?-?-?-?-?-?-?-?-?- B 05/19/21 -?-?-?-?-?-?-?-?-?-?-?-?- 29w 6d 154 lb (+29 lb) 132/80 Negative -?-?-?-?-?-?-?-?-?-?-?-?- Negative A 145 -?-?-?-?-?-?-?-?-?-?-?-?- B 135 A Cephalic -?-?-?-?-?-?-?-?-?-?-?-?- B Cephalic -?-?-?-?-?-?-?-?-?-?-?-?- A -?-?-?-?-?-?-?-?-?-?-?-?- B A m- no vb lof goo d fm no regular ctx -?-?-?-?-?-?-?-?-?-?-?-?- B 06/01/21 -?-?-?-?-?-?-?-?-?-?-?-?- 31w 5d 157 lb (+32 lb) 112/74 Negative -?-?-?-?-?-?-?-?-?-?-?-?- Negative A 145 -?-?-?-?-?-?-?-?-?-?-?-?- B 145 A -?-?-?-?-?--?-?-?-?-?-?-?- B -?-?-?-?-?-?-?-?-?-?-?-?- A -?-?-?-?-?-?-?-?-?-?-?-?- B A SM- no vb lof go od fm no regular ctx -?-?-?-?-?-?-?-?-?-?-?-?- B 06/10/21 -?-?-?-?-?-?-?-?-?-?-?-?- 33w 0d 162 lb (+37 lb) 118/62 Negative -?-?-?-?-?-?-?-?-?-?-?-?- A 160 -?-?-?-?-?-?-?-?-?-?-?-?- B 163 A Cephalic -?-?-?-?-?-?-?-?-?-?-?-?- B Cephalic 0 -?-?-?-?-?-?-?-?-?-?-?-?- 40 A -3 -?-?-?-?-?-?-?-?-?-?-?-?- B A JV- pt is having some pelvic discomfort and feels abdomen tightening. cx closed. mfm appts every tuesday now. -?-?-?-?-?-?-?-?-?-?-?-?- B 06/20/21 -?-?-?-?-?-?-?-?-?-?-?-?- 34w 3d 163 lb 2.273 oz (+38 lb 2.273 oz) 132/77 -?-?-?-?-?-?-?-?-?-?-?-?- A -?-?-?-?-?-?-?-?-?-?-?-?- B A -?-?-?-?-?-?-?-?-?-?-?-?- B -?-?-?-?-?-?-?-?-?-?-?-?- A -?-?-?-?-?-?-?-?-?-?-?-?- B A admitted for PPR OM -?-?-?-?-?-?-?-?-?-?-?-?- B ROS Constitutional Constitutional: Denies change in weight, fatigue, fever(s), headache(s), poor appetite or weakness Eyes Eyes: Denies blurry vision, change in vision, seeing flashes or spots in vision ENT HEENT: Denies dizziness, headache(s), loss taste/smell or sore throat Cardiovascular Cardiovascular: Denies chest pain, dizziness, dyspnea, irregular heart rhythm, leg edema, palpitations, rapid heart rate or vomiting Respiratory/Chest Respiratory/Chest: Denies chest tightness, cough, dyspnea or breast pain Gastrointestinal Gastrointestinal: Denies abdominal pain, anorexia, constipation, cramping, diarrhea, hemorrhoids, vomiting or weight changes Genitourinary Genitourinary: Denies dysuria, flank pain, genital lesions, genital pain, urinary frequency or urinary urgency Musculoskeletal Musculoskeletal: Denies back pain, difficulty walking, joint pain, limited range of motion, muscle cramps or numbness Integumentary Integumentary: Denies lesions or unusual bruising Neurologic Neurologic: Denies abnormal movements, abnormal speech, dizziness, numbness, seizure-like activity or syncope Psychiatric Psychiatric: Denies anxiety, behavioral changes, change in appetite, change in libido, cognitive impairment, confusion, depression, difficulty concentrating, hallucinations or suicidal thoughts Endocrine Endocrinology: Denies excessive sweating, polydipsia or polyuria Hematologic/Lymphatic Hematologic/Lymphatic: Denies easy bleeding, easy bruising or lymphadenopathy Allergic/Immunologic Allergic/Immunologic: Denies itchy eyes, lip swelling, seasonal rhinorrhea, rhin itis, throat swelling, tongue swelling, eczemia, wheezing or asthma Vital Signs Vital Signs Vital Signs: 06/20/21 13:41 Temperature 98.7 F Temperature Source Temporal Pulse Rate 60 Blood Pressure 132/77 H BP Systolic 132 BP Diastolic 77 Weight Weight: 163 lb 2.273 oz Body Mass Index (BMI) 27.1 Physical Exam Const alert, oriented x3, no apparent distress and healthy appearing General Appearance: cooperative; Negative for anxious HEENT normocephalic Face and Sinus: normal facial exam Eyes EOMs intact bilaterally and no scleral icterus General Eye: normal appearance of both eyes Neck full ROM and supple Lymph Lymphatic: no lymphadenopathy noted Chest Chest: abnormal inspection of the chest Resp normal respiratory effort Effort and Inspection: able to speak in complete sentences Cardio regular rate GI soft to palpation and non-tender Inspection: gravid Palpation: soft; Negative for tender external exam normal Amniotic Fluid: ROM+plus and other cx: /-2, twins are vtx/vtx both FHT are reactive cat 1 toco showing irritability every 1 min. 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 (2) Abnormal glucose: COMMENT: 3 hr GTT nl (3) conceived through in vitro fertilization: COMMENT: US every 2 wk, anatomy 18 wks, nl echo at 22wks, growth every 4 wks. wkly BPP after 32 wks. wkly NST @ 32 weeks all done at [facility] (4) Monochorionic diamniotic twin gestation: COMMENT: girls, seeing MFM for monitoring. Anatomy US normal; wkly bpp with mfm after 32 weeks (5) : QUALIFIERS: Weeks of gestation: 33 weeks Qualified Code(s): Z3A.33 - 33 weeks gestation of COMMENT: deliver @ 37 wks, low risk genetic at [facility]. neg urine culture anatomy reviewed. (6) Supervision of high-risk : COMMENT: PRR MAGDALENA 07/29/21 identical girl/girl surprise Archid (7) premature rupture of membranes (PPROM) delivered, current hospitalization: PLAN: plan to admit and give steroids (12.5 mg celestone), IV abx, amp + azith if no active labor after 24 hrs will induce with pitocin
[2021-06-20] MEDS: Lactated Ringers 1,000 ML 50 ML IV (14:55)
[2021-06-20 15:18] LABS: Absolute Lymphocyte Count 2.12 X10^3/uL (0.83-4.51); Basophil# 0.03 X10^3/uL; Basophil% 0.3 % (0-1); Eosinophil# 0.02 X10^3/uL; Eosinophils% 0.2 % (0-5); Hematocrit 42.5 % (37-47); Hemoglobin 14.6 g/dL (12.0-15.0); Lymphocyte # 2.12 X10^3/ul (0.83-4.51); Lymphocyte % 19.3 % (19-41); Mean Corp Hgb Conc 34.4 g/dL (32-36); Mean Corpuscular Hgb 31.7 pg (27.0-32.0); Mean Corpuscular Volume 92.4 fL (81-99); Monocyte% 6.4 % (0-10); NRBC Flagged by Analyzer 0 % (0-5); Neutrophil # 8.01 X10^3/uL (2.7-7.7); Platelet Count 260 K/mm3 (150-450); RBC Distribution Width CV 11.9 % (11.6-14.6); RBC Distribution Width SD 40.8 fl (35.1-43.9)
[2021-06-20 15:25] LABS: Group B Strep DNA By PCR Negative (Negative); Internal Control PASS; Specimen Processing Control PASS
[2021-06-20 15:26] LABS: Probe Check PASS
[2021-06-20] MEDS: Azithromycin 250 MG Tablet 500 MG PO (16:22)
[2021-06-20] MEDS: Betamethasone/Betamethasone 30 MG/5 ML Vial 12 MG IM (16:24)
[2021-06-20 16:51] LABS: Color, Urine Yellow (Yellow); Glucose, Dipstick Normal (Normal); Ketone-Dipstick 15 mg/dl (Negative); Leukocyte Esterase-Dipstick 25 /ul (Negative); Mucous, Urine 0 SEEN /hpf (<or=2+); Nitrite-Dipstick Negative (Negative); Occult Blood-Urine 150 /ul (Negative); Protein-Dipstick 30 mg/dl (Negative); Urine Bilirubin Dipstick Negative (Negative); Urine Clarity Sl. Cloudy (Clear); Urine Urobilinogen Normal (Normal)
[2021-06-20 16:59] LABS: Squamous Epithelial Cells - UA 10-25 SEEN /hpf (5-10)
[2021-06-20 17:00] LABS: Red Blood Cells-Urine 25-50 SEEN /hpf (0-5); White Blood Cells 5-10 SEEN /hpf (0-5)
[2021-06-20 17:02] LABS: Bacteria 1+ /hpf (None Seen)
[2021-06-20] MEDS: Lactated Ringers 500 ML 999 ML IV ×2 (20:43→23:19)
[2021-06-20] MEDS: Zolpidem Tartrate 5 MG Tablet PO (21:14)
[2021-06-20] MEDS: Ondansetron 4 MG/2 ML Vial IV (22:07)
[2021-06-20 23:01] LABS: Chlamydia Trachomatis by PCR Negative (Negative); Neisserai gonorrhoeae by PCR Negative (Negative); Probe Check PASS; Sample Adequacy Control PASS; Specimen Processing Control PASS
[2021-06-21] VITALS (43 sets, daily range): BP systolic 95–182; BP diastolic 56–128; PULSE 55–144; RESP 14–18; TEMP 36.3–36.8; O2SAT 96–100
[2021-06-21] MEDS: fentaNYL-bupivacaine (epidural) 100 ML BAG EPIDURAL (00:15)
--- NOTE | 2021-06-21 01:20 | RAD_ITS ---
HISTORY: instrument count in OR . No other history provided. EXAMINATION/TECHNIQUE: XR Abdomen 1 View: COMPARISON: None FINDINGS: LINES AND TUBES: No radiodense foreign bodies appreciated within the imaged abdomen or pelvis. Upper abdomen is excluded from the study. BOWEL GAS PATTERN: Non-obstructive. No bowel or stomach distention. ORGANOMEGALY: Central abdominal pelvic mass like soft tissue attenuation CALCIFICATIONS: No abnormal calcifications observed. BONES AND SOFT TISSUES: No acute pathology. RAD/Abdomen Single View IMPRESSION: No evidence of radiodense foreign body within the imaged portion of the abdomen or pelvis. Prominent masslike density within the mid abdomen and pelvis, most commonly representing postgravid uterus. at 0520 Reported and signed by: Sj Jin MD Electronically Signed: Sj Jin MD at 5:19 EST Tel , Service support ,
[2021-06-21] MEDS: Oxytocin 30 units/NS 500 ml 30 UNITS/500 ML IV.SOLN 167 UNITS IV (01:50)
--- NOTE | 2021-06-21 02:19 | EX.PCM.OBRPT ---
Assessment & Plan (1) Supervision of high-risk : COMMENT: PRR MAGDALENA 07/29/21 identical girl/girl surprise Rachid (2) : QUALIFIERS: Weeks of gestation: 33 weeks Qualified Code(s): Z3A.33 - 33 weeks gestation of COMMENT: deliver @ 37 wks, low risk genetic at [facility]. neg urine culture anatomy reviewed. (3) Monochorionic diamniotic twin gestation: COMMENT: girls, seeing MFM for monitoring. Anatomy US normal; wkly bpp with mfm after 32 weeks (4) conceived through in vitro fertilization: COMMENT: US every 2 wk, anatomy 18 wks, nl echo at 22wks, growth every 4 wks. wkly BPP after 32 wks. 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 (7) premature rupture of membranes (PPROM) delivered, current hospitalization: (8) bradycardia during labor: Maternal Data Information MAGDALENA Calculator Estimated Delivery Date Method Current WG Current Estimate 07/29/21 LMP (Certain) 34w 4d # 2 Details Operative Information Date of Procedure: 06/21/21 Pre-Operative Diagnosis: Brewster/di twin gestation 34 weeks 5 days , PPROM, prolonged bradycardia (baby a) Post-Operative Diagnosis: Brewster/di twin gestation 34 weeks 5 days , PPROM, prolonged bradycardia (baby a) Indications for : Nonreassuring Status Classification: Stat Procedure Type: low transverse Type of Anesthesia: Epidural Antibiotic Given: Ancef 2 grams IV x1 Estimated Blood Loss: 500cc Findings Description of Procedure: Preprocedure note: The patient is a 31 y/o [id number] presented to L&D with a mono/di twin gestation and premature rupture of membranes that occurred at 0900. She presented to L&D around 1400 and antibiotics were started along with one dose of celestone. Expectant management for 24 hrs was planned however at 0028 Nursing called with report that they could not find a heart rate on baby A. At 0024 and prior there was moderate variability with + accelerations and at 0025 the heart rate decelerated down to the 50's and then was lost. A FSE was placed at 0028. The patient was rushed to the OR for a STAT section at 0031. Epidural anesthesia was in place. Rivas catheter was placed. The patient was placed in the dorsal supine position with leftward tilt. Patient was splash prepped and draped in the normal sterile fashion. Incision time was 0040. Procedure: A Pfannenstiel skin incision was made with the scalpel and carried through to the underlying layer of fascia with the scalpel. Fascia was incised in the midline and the incision extended laterally using the scalpel. The rectus bellies were cut and the peritoneum was entered digitally. The incision was stretched and a low transverse uterine incision was made with the scalpel. The 's head was delivered atraumatically followed by the anterior and posterior shoulders without complication the rest of the infant delivered. The cord was clamped and cut and the was handed off to awaiting nurse. There was noted to be a lose nuchal cord and the was pale and floppy. The second membrane bag was then ruptured and Baby B's head was grasped and delivered atraumatically followed by the anterior and posterior shoulders without difficulty. The second baby was vigorous and crying and moving of all 4 extremities. The placenta was delivered spontaneously immediately following and was noted to be intact and have a three-vessel cord. The uterus was exteriorized cleared of all clots and debris, and the incision was closed in a double layer closure using #1 Vicryl first followed by a #1 Monocryl in an imbricating layer. The ovaries and fallopian tubes were noted to be within normal limits. The uterus was returned to the maternal abdomen and gutters were cleared of all clots and debris. The peritoneum was closed with 3-0 Monocryl in a running fashion. The Fascia was closed with 0 Stratafix sutrue in a running fashion. Subcutaneous tissue was copiously irrigated and the skin was closed with 3-0 Monocryl in a subcuticular fashion. Mepilex dressing was applied without complication. Patient was taken to recovery in stable condition. It was discussed with the patient that based on the clinical information obtained during this encounter that the baby A infant is being cared for by the wildlife biostation research ecologist and transportation was being arranged. Cord blood was collected for gases, however clotted and information is not available Presentation: Positive for Vertex Amniotic Membrane Rupture Type: Spontaneous Time of Membrane Ruptured: 9 am on 06/20/21 Amniotic Fluid Description: Clear Placenta Disposition: Sent to Pathology Cord Vessel Description: 3 Vessels Cord Entanglement: Around neck x 1, loose Nuchal Cord Compression: With compression Cord Gases: ABG and VBG Infant A Gender: Female Delayed Cord Clamping: No Baby B Operative Information Mode of Delivery: Cord Vessel Description: 3 Vessels Cord Entanglement: None Infant B gender: Female (1 minute): 8 (5 minute): 9 Delayed Cord Clamping: No Multi Select Codes Urinary/Genital Urinary/Genital CPT Codes: 81104 Delivery [facility]
--- NOTE | 2021-06-21 02:41 | PCM.DC ---
Discharge Instructions Diet Discharge Diet: No restrictions Activity Discharge Activity: May Not Drive (for 2 weeks or while taking narcotic pain medications.), May Shower and May Take a Tub Bath (in 7 days.) May resume sexual activity in: 4-6 weeks Weight Bearing Status: Full weight bearing Lifting Restrictions: 20 pounds Dressing / Incision Call your doctor if your incision/area has: Continuous Slow Oozing, Sudden Increased Bleeding, Increased Pain/ Swelling, Increased Redness and Foul Smelling Discharge Call your doctor if you observe: Fever of 101 or Higher and Using more than 1 pad per hour Suture Line Care: Avoid Pulling/Pushing and Avoid Pinching/Bending Cleanse incision/area with: Soap & Water and Keep Dressing Clean & Dry Follow Up Care Please Follow Up With: Andree Castillo DO When: Call [phone] to make an appointment for an incision check in 1-2 weeks. Test Results: Test results from this visit will be discussed in further detail at your follow-up appointment, if applicable. Discharge Plan Admission Admit Date/Time: 06/20/21 14:00 Primary Reason for Your Visit: section Attending Provider: Andree Castillo Primary Care Provider: Magalis Damico Discharge Orders/Prescriptions Prescriptions: New docusate sodium [Colace] 100 mg capsule 100 mg PO DAILY 14 Days Qty: 14 RF: 0 ibuprofen 800 mg tablet 800 mg PO Q8H PRN (Reason: pain) 7 Days Qty: 30 RF: 0 oxycodone-acetaminophen [Percocet] 5-325 mg tablet 1 tab PO Q4H PRN (Reason: pain (scale score 7-10)) 7 Days Qty: 28 RF: 0 Continued ferrous sulfate 325 mg (65 mg iron) tablet 325 mg PO DAILY RF: 0 PNV 119-iron fum-folic acid 29 mg iron- 1 mg tablet 1 tab PO DAILY RF: 0 levothyroxine [Synthroid] 25 mcg tablet 12.5 mcg PO DAILY RF: 0 Discontinued aspirin [Aspir-Low] 81 mg Tablet,Delayed Release (Dr/Ec) 81 mg PO DAILY RF: 0 Referrals / Follow Up: Magalis Damico MD [Primary Care Provider] - Disposition Disposition (needs filled in before D/C Order can be placed): Home, Self Care
[2021-06-21] MEDS: Acetaminophen 500 MG Tablet 1000 MG PO ×3 (03:39→16:18)
[2021-06-21] MEDS: Ketorolac 30 MG/ML Syringe IV ×2 (04:52→12:00)
[2021-06-21] MEDS: Lactated Ringers 1,000 ML 100 ML IV (04:52)
[2021-06-21] MEDS: Enoxaparin 40 MG/0.4 ML Syringe SC (09:31)
[2021-06-21] MEDS: Senna/Docusate Sodium 1 Tablet PO (09:31)
--- NOTE | 2021-06-21 09:47 | PCM.PN.OB ---
Subjective Subjective Patient doing well without complaints. Tolerating PO. Feeding well. Denies chest pain, shortness of breath, calf pain/swelling, fevers, chills, lightheadedness. Objective Data Objective Data Vital Signs: Vital Signs Temp Pulse Resp BP Pulse Ox 97.7 F L 63 16 127/76 H 100 06/21/21 09:17 06/21/21 09:17 06/21/21 09:17 06/21/21 09:17 06/21/21 09:17 Oxygen Delivery Method Room Air Weight: 163 lb 2.273 oz Body Mass Index (BMI) 27.1 Intake & Output: Intake and Output for Last 24 Hours 06/19/21 06/20/21 06/21/21 23:59 23:59 23:59 Intake Total 2117.50 / 2117.50 1140 / 1140 Output Total 250 / 250 Balance 2117.50 / 2117.50 890 / 890 Lab / Micro Data Result Diagrams: 06/20/21 14:55 Labs: Laboratory Results - last 24 hr 06/20/21 13:48: Vag Amniotic Fld Detect POSITIVE H 06/20/21 14:15: Group B Strep DNA Negative, Specimen Comment Not Reportable 06/20/21 14:55: WBC 11.0, RBC 4.60, Hgb 14.6, Hct 42.5, MCV 92.4, MCH 31.7, MCHC 34.4, RDW Std Deviation 40.8, RDW Coeff of Teo 11.9, Plt Count 260, MPV 13.0 H, Immature Gran % (Auto) 0.800, Neut % (Auto) 73.0 H, Lymph % (Auto) 19.3, Hardin % (Auto) 6.4, Eos % (Auto) 0.2, Baso % (Auto) 0.3, Absolute Neuts (auto) 8.0 H, Absolute Lymphs (auto) 2.12, Nucleated RBC % 0 06/20/21 14:55: Blood Type A POSITIVE, Antibody Screen NEGATIVE 06/20/21 16:30: Urine Color Yellow, Urine Clarity Sl. Cloudy, Urine pH 6.0, Ur Specific [place] 1.020, Urine Protein 30 H, Urine Glucose (UA) Normal, Urine Ketones 15 H, Urine Occult Blood 150 H, Urine Nitrite Negative, Urine Bilirubin Negative, Urine Urobilinogen Normal, Ur Leukocyte Esterase 25 H, Urine RBC 25-50 SEEN, Urine WBC 5-10 SEEN, Ur Squamous Epith Cells 10-25 SEEN, Urine Bacteria 1+, Urine Mucus 0 SEEN 06/20/21 20:20: Chlam trachomat DNA PCR Negative, N.gonorrhoeae DNA (PCR) Negative Micro: Microbiology 06/20/21 17:00 Nasal Secretion SARS-CoV-2 Antigen (Rapid) - Final Radiography Diagnostic Testing: Radiology Impression KUB X-Ray 06/21/21 01:20 IMPRESSION: No evidence of radiodense foreign body within the imaged portion of the abdomen or pelvis. Prominent masslike density within the mid abdomen and pelvis, most commonly representing postgravid uterus. at 0520 Reported and signed by: Sj Jin MD Electronically Signed: Sj Jin MD at 5:19 EST Tel , Service support , ROS Constitutional Constitutional: Reports systems reviewed and no addt'l complaints, except as documented Cardiovascular Cardiovascular: Denies chest pain, dizziness, dyspnea or irregular heart rhythm Respiratory/Chest Respiratory/Chest: Denies cough, pain on inspiration or shortness of breath at rest Gastrointestinal Gastrointestinal: Denies abdominal pain, nausea or vomiting Genitourinary Genitourinary: Denies burning urination Musculoskeletal Musculoskeletal: Denies muscle cramps, muscle spasms or muscle weakness Neurologic Neurologic: Denies confusion, dizziness, headache(s) or lack of coordination Psychiatric Psychiatric: Denies anxiety, behavioral changes or depression Physical Exam HEENT normocephalic Resp normal respiratory effort and normal air movement GI soft to palpation, non-tender and non-distended Rectal Exam: other Other Details: Incision is clean, dry, and intact no CVA tenderness Extremity normal to inspection General Extremity: edema bilateral (trace ) Assessment & Plan (1) Delivery by section: (2) bradycardia during labor: (3) Supervision of high-risk : COMMENT: PRR MAGDALENA 07/[birth year]/21 identical girl/girl surprise Rachid (4) : QUALIFIERS: Weeks of gestation: 33 weeks Qualified Code(s): Z3A.33 - 33 weeks gestation of COMMENT: deliver @ 37 wks, low risk genetic at I. neg urine culture anatomy reviewed. (5) Monochorionic diamniotic twin gestation: COMMENT: girls, seeing MFM for monitoring. Anatomy US normal; wkly bpp with mfm after 32 weeks (6) conceived through in vitro fertilization: COMMENT: US every 2 wk, anatomy 18 wks, nl echo at 22wks, growth every 4 wks. wkly BPP after 32 wks. 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 (9) premature rupture of membranes (PPROM) delivered, current hospitalization: PLAN: s/p LTCS PPD # 1 1. routine post care 2. breast feeding- support given- baby a is in [place] NICU, baby b is in special care nursery here 3. rh positive 4. rubella immune 5. plan to dc patient so that she may be with her children as needed.
[2021-06-21] MEDS: Ondansetron 4 MG/2 ML Vial IV (09:58)
--- NOTE | 2021-06-21 17:08 | NURSING ---
void missed hat
[2021-06-21] MEDS: Ibuprofen 600 MG Tablet PO (21:41)
[2021-06-22] MEDS: Acetaminophen 500 MG Tablet 1000 MG PO ×4 (02:01→21:07)
[2021-06-22 02:03] VITALS: BP 124/79; PULSE 56; RESP 18; TEMP 36.5
[2021-06-22] MEDS: Ibuprofen 600 MG Tablet PO ×4 (04:22→23:32)
[2021-06-22 06:11] LABS: Hematocrit 31.5 % (37-47); Mean Corp Hgb Conc 34.9 g/dL (32-36); Mean Corpuscular Hgb 32.3 pg (27.0-32.0); Mean Corpuscular Volume 92.4 fL (81-99); Mean Platelet Vol. 12.2 fl (6.2-12.0); Platelet Count 230 K/mm3 (150-450); RBC Distribution Width SD 40.6 fl (35.1-43.9); Red Blood Count 3.41 M/mm3 (4.2-5.4); White Blood Count 16.9 K/mm3 (4.4-11.0)
[2021-06-22] MEDS: oxyCODONE 5 MG Tablet PO ×4 (06:18→21:07)
--- NOTE | 2021-06-22 06:36 | PCM.PN.OB ---
Subjective Subjective Patient doing well without complaints. Tolerating PO. Ambulating and voiding without difficulty. Feeding well. Denies chest pain, shortness of breath, calf pain/swelling, fevers, chills, lightheadedness. Baby A will likely be sent back to us today for comfort care measures. pt is very tearful but emotionally strong and level headed. Objective Data Objective Data Vital Signs: Vital Signs Temp Pulse Resp BP Pulse Ox 97.7 F L 56 L 18 124/79 H 98 06/22/21 02:03 06/22/21 02:03 06/22/21 02:03 06/22/21 02:03 06/21/21 21:41 Oxygen Delivery Method Room Air Weight: 163 lb 2.273 oz Body Mass Index (BMI) 27.1 Intake & Output: Intake and Output for Last 24 Hours 06/20/21 06/21/21 06/22/21 23:59 23:59 23:59 Intake Total 2117.50 / 2117.50 2140 / 2140 Output Total 1600 / 1600 900 / 900 Balance 2117.50 / 2117.50 540 / 540 -900 / -900 Lab / Micro Data Result Diagrams: 06/22/21 05:55 Labs: Laboratory Results - last 24 hr 06/22/21 05:55: WBC 16.9 H, RBC 3.41 L, Hgb 11.0 L, Hct 31.5 L, MCV 92.4, MCH 32.3 H, MCHC 34.9, RDW Std Deviation 40.6, RDW Coeff of Teo 12.0, Plt Count 230, MPV 12.2 H Micro: Microbiology 06/20/21 17:00 Nasal Secretion SARS-CoV-2 Antigen (Rapid) - Final ROS Constitutional Constitutional: Reports systems reviewed and no addt'l complaints, except as documented; Denies change in weight, fatigue, fever(s), headache(s), poor appetite or weakness Eyes Eyes: Denies blurry vision, change in vision, seeing flashes or spots in vision ENT HEENT: Denies dizziness, headache(s), loss taste/smell or sore throat Cardiovascular Cardiovascular: Denies chest pain, dizziness, dyspnea, irregular heart rhythm, leg edema, palpitations, rapid heart rate or vomiting Respiratory/Chest Respiratory/Chest: Denies chest tightness, cough, dyspnea, pain on inspiration, shortness of breath at rest or breast pain Gastrointestinal Gastrointestinal: Denies abdominal pain, anorexia, constipation, cramping, diarrhea, hemorrhoids, nausea, vomiting or weight changes Genitourinary Genitourinary: Denies burning urination, dysuria, flank pain, genital lesions, genital pain, urinary frequency or urinary urgency Musculoskeletal Musculoskeletal: Denies back pain, difficulty walking, joint pain, limited range of motion, muscle cramps, muscle spasms, muscle weakness or numbness Integumentary Integumentary: Denies lesions or unusual bruising Neurologic Neurologic: Denies abnormal movements, abnormal speech, confusion, dizziness, headache(s), lack of coordination, numbness, seizure-like activity or syncope Psychiatric Psychiatric: Denies anxiety, behavioral changes, change in appetite, change in libido, cognitive impairment, confusion, depression, difficulty concentrating, hallucinations or suicidal thoughts Endocrine Endocrinology: Denies excessive sweating, polydipsia or polyuria Hematologic/Lymphatic Hematologic/Lymphatic: Denies easy bleeding, easy bruising or lymphadenopathy Allergic/Immunologic Allergic/Immunologic: Denies itchy eyes, lip swelling, seasonal rhinorrhea, rhinitis, throat swelling, tongue swelling, eczemia, wheezing or asthma Physical Exam Const alert, oriented x3, no apparent distress and healthy appearing General Appearance: cooperative; Negative for anxious HEENT normocephalic Eyes EOMs intact bilaterally and no scleral icterus General Eye: normal appearance of both eyes Neck full ROM and supple Lymph Lymphatic: no lymphadenopathy noted Chest Chest: abnormal inspection of the chest Resp normal respiratory effort and normal air movement Effort and Inspection: able to speak in complete sentences Cardio regular rate GI soft to palpation, non-tender and non-distended Inspection: gravid Palpation: soft; Negative for tender Rectal Exam: other Other Details: Incision is clean, dry, and intact no CVA tenderness and external exam normal Amniotic Fluid: ROM+plus and other cx: 2/90/-2, twins are vtx/vtx both FHT are reactive cat 1 toco showing irritability every 1 min. Back/Spine no CVA tenderness Extremity normal to inspection, full ROM and no clubbing, cyanosis or edema General Extremity: edema bilateral (trace ); Negative for calf tenderness Skin Lesions: no lesions Rashes: no rashes Psych mental status grossly normal Assessment & Plan (1) Delivery by section: (2) bradycardia during labor: (3) Supervision of high-risk : COMMENT: PRR MAGDALENA 07/29/21 identical girl/girl surprise Rachid (4) : QUALIFIERS: Weeks of gestation: 33 weeks Qualified Code(s): Z3A.33 - 33 weeks gestation of COMMENT: deliver @ 37 wks, low risk genetic at [facility] [place]. neg urine culture anatomy reviewed. (5) Monochorionic diamniotic twin gestation: COMMENT: girls, seeing MFM for monitoring. Anatomy US normal; wkly bpp with mfm after 32 weeks (6) conceived through in vitro fertilization: COMMENT: US every 2 wk, anatomy 18 wks, nl echo at 22wks, growth every 4 wks. wkly BPP after 32 wks. 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 (9) premature rupture of membranes (PPROM) delivered, current hospitalization: PLAN: s/p LTCS PPD # 2 1. routine post care 2. breast feeding- support given- baby a is in [place] NICU, baby b is in special care nursery here. Baby A will come back today for comfort care measures 3. rh positive 4. rubella immune 5. plan to dc patient so that she may be with her children as needed vs keep her today for her own comfort and recovery
[2021-06-22 08:06] VITALS: BP 107/69; PULSE 63; RESP 14; TEMP 36.1; O2SAT 98
[2021-06-22] MEDS: Enoxaparin 40 MG/0.4 ML Syringe SC (10:36)
[2021-06-22] MEDS: Senna/Docusate Sodium 1 Tablet PO (10:36)
--- NOTE | 2021-06-22 13:15 | CASEMGMT ---
Social Work Labor and Delivery Consult received for this mother of baby (MOB) who delivered 34 week twins. Consult due to Baby A transferred to [facility] and Baby B in [facility] (where for continuity of care of families on the SCN, this personal lines underwriter also provides social work services to the SCN). Collaboration with unit staff today, and learned that Baby A, Whitney, is being transferred back to [facility] for comfort care measures. This personal lines underwriter met with MOB in room. Introduced to self and roles for both hospital systems, offered support, and let MOB know that this personal lines underwriter is available as needed and will be touching base with MOB again to talk more about how MOB is doing/coping and review issues (mood, anxiety, grief). MOB voiced receptivity to plan. MOB teary eyed a few times, appropriately so to content discussed. Appears to have supportive family, and shared that looking forward to having FOB arrive, as FOB has been in [place] with Whitney. MOB has not yet been able to hold Whitney, and the FOB has not yet been able to hold Baby B, Ck, who has been in the [facility]. Plan: Social work to follow and assist as needed. -SENIA Smart, DRIVER LICENSE AGENT
[2021-06-22 16:13] VITALS: BP 132/83; PULSE 70
[2021-06-22 16:15] VITALS: BP 132/83; PULSE 70; RESP 18; TEMP 36.1
[2021-06-22 19:54] VITALS: BP 134/88; PULSE 73; RESP 18; TEMP 36.6
[2021-06-23 02:34] VITALS: BP 136/86; PULSE 59; RESP 18; TEMP 36.2
[2021-06-23] MEDS: Acetaminophen 500 MG Tablet 1000 MG PO ×4 (02:39→22:02)
[2021-06-23] MEDS: Ibuprofen 600 MG Tablet PO ×3 (06:05→18:31)
--- NOTE | 2021-06-23 07:51 | PN.OBGYN_ITS ---
Subjective Subjective Patient doing well without complaints. Tolerating PO. Ambulating and voiding without difficulty. feeding well. Denies chest pain, shortness of breath, calf pain/swelling, fevers, chills, lightheadedness. coping appropriately with loss, support given. discussed starting celexa for mental health support Objective Data Objective Data Vital Signs: Vital Signs Temp Pulse Resp BP Pulse Ox 97.2 F L 59 L 18 136/86 H 98 06/23/21 02:34 06/23/21 02:34 06/23/21 02:34 06/23/21 02:34 06/22/21 08:06 Oxygen Delivery Method Room Air Weight: 163 lb 2.273 oz Body Mass Index (BMI) 27.1 Intake & Output: Intake and Output for Last 24 Hours 06/21/21 06/22/21 06/23/21 23:59 23:59 23:59 Intake Total 2140 / 2140 Output Total 1600 / 1600 900 / 900 Balance 540 / 540 -900 / -900 Lab / Micro Data Result Diagrams: 06/22/21 05:55 Micro: Microbiology 06/20/21 16:30 Urine, Clean Catch Urine Culture - Final Mixed Gram Positive Organisms 06/20/21 Unknown Genital vaginal Group B Streptococcus Culture - Preliminary Group B Beta Streptococcus is not isolated. 06/20/21 17:00 Nasal Secretion SARS-CoV-2 Antigen (Rapid) - Final ROS Constitutional Constitutional: Reports systems reviewed and no addt'l complaints, except as documented Cardiovascular Cardiovascular: Reports systems reviewed and no addt'l complaints, except as documented Respiratory/Chest Respiratory/Chest: Reports systems reviewed and no addt'l complaints, except as documented Gastrointestinal Gastrointestinal: Reports systems reviewed and no addt'l complaints, except as documented Physical Exam Const alert, oriented x3 and no apparent distress HEENT Head and Scalp: atraumatic Resp normal respiratory effort GI soft to palpation and non-tender Inspection: incision intact, healing well and drainage (none) Bimanual Exam - Vag & Uterus: uterus non-tender Uterus Palpation: uterus fundus firm (below Umbilicus) Assessment & Plan (1) of child: COMMENT: Whitney, lost on day 2 of life. 34 week PPROM (2) Delivery by section: (3) Monochorionic diamniotic twin gestation: COMMENT: girls, seeing [facility] for monitoring. Anatomy US normal; wkly bpp with mfm after 32 weeks PLAN: s/p LTCS PPD # 2 1. routine post care 2. breast feeding- support given 3. rh positive 4. rubella immune start celexa
[2021-06-23] MEDS: Senna/Docusate Sodium 1 Tablet PO (09:31)
[2021-06-23] MEDS: Citalopram 20 MG Tablet PO (09:31)
[2021-06-23] MEDS: Enoxaparin 40 MG/0.4 ML Syringe SC (09:32)
[2021-06-23 09:48] VITALS: BP 125/80; PULSE 65; RESP 18; TEMP 36.7
[2021-06-23 12:21] VITALS: BP 131/77; PULSE 57; RESP 16; TEMP 36.6
--- NOTE | 2021-06-23 17:35 | CASEMGMT ---
Social Work Labor and Delivery Met with patient/mother of baby (MOB) and father of baby (FOB) at baby deo Stover's bedside in the [facility]. Introduced self to the FOB as had not yet met the FOB. Offered condolences on the passing of baby deo Olson on 06.22.21. MOB and FOB report the time with Aria and family was good, and helpful to have family present at the hospital. Active listening, support, reflection and encouragement provided. Parents express thought would like information on counseling, as both feel this would be helpful to access down the road. This administrative underwriter agreed to get some resources together that may be helpful to this family. Touched on depression, anxiety, and grief; that this can be discussed further at another time. Answered parents questions as able. 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 MOB had planned to be off through October, and FOB had panned for at least 2 weeks but can take more if needed. Discussed that something to consider is level of support when Ck is discharged from the [facility], that if possible for MOB to have support from someone at time of Ck's discharge, this would be likely be a positive thing. FOB reported this make sense and something to think about as FOB plans his time off from work. Parents appropriate in affect and mood. Good eye contact, and presenting as supportive of one another. Explored parents feelings on heber Stover. Both identify to feel a connection with Ck. Encouraged self care, taking breaks, getting fresh air, and even setting boundaries with others if start to feel overwhelmed (such as taking own time to respond to well meaning texts and calls from others). Plan: MOB anticipates discharge on 06.24.2021 to hotel status. Social work will remain available to this family however during Ck's stay in the [facility]. -SHADIA Smart, JOURNEYMAN MECHANIC
[2021-06-23 18:33] VITALS: BP 132/76; PULSE 61; RESP 18; TEMP 36.8
[2021-06-23 19:42] VITALS: BP 131/76; PULSE 65; RESP 16; TEMP 36.7
[2021-06-24] MEDS: Ibuprofen 600 MG Tablet PO ×3 (01:53→14:31)
[2021-06-24 01:54] VITALS: BP 115/64; PULSE 58; RESP 16; TEMP 36.8
[2021-06-24] MEDS: Acetaminophen 500 MG Tablet 1000 MG PO ×3 (03:02→15:53)
[2021-06-24 08:06] VITALS: BP 131/82; PULSE 98; RESP 16; TEMP 37
[2021-06-24] MEDS: Senna/Docusate Sodium 1 Tablet PO (09:36)
[2021-06-24] MEDS: Citalopram 20 MG Tablet PO (09:36)
[2021-06-24] MEDS: Enoxaparin 40 MG/0.4 ML Syringe SC (09:37)
--- NOTE | 2021-06-24 11:47 | PCM.PN.OB ---
Subjective Subjective Patient doing well without complaints. Tolerating PO. Ambulating and voiding without difficulty. feeding well. Denies chest pain, shortness of breath, calf pain/swelling, fevers, chills, lightheadedness. Objective Data Objective Data Vital Signs: Vital Signs Temp Pulse Resp BP Pulse Ox 98.6 F 98 16 131/82 H 98 06/24/21 08:06 06/24/21 08:06 06/24/21 08:06 06/24/21 08:06 06/22/21 08:06 Oxygen Delivery Method Room Air Weight: 163 lb 2.273 oz Body Mass Index (BMI) 27.1 Intake & Output: Intake and Output for Last 24 Hours 06/22/21 06/23/21 06/24/21 23:59 23:59 23:59 Output Total 900 / 900 Balance -900 / -900 Lab / Micro Data Result Diagrams: 06/22/21 05:55 Micro: Microbiology 06/20/21 Unknown Genital vaginal Group B Streptococcus Culture - Final Group B Beta Streptococcus is not isolated. 06/20/21 16:30 Urine, Clean Catch Urine Culture - Final Mixed Gram Positive Organisms 06/20/21 17:00 Nasal Secretion SARS-CoV-2 Antigen (Rapid) - Final ROS Constitutional Constitutional: Reports systems reviewed and no addt'l complaints, except as documented Cardiovascular Cardiovascular: Reports systems reviewed and no addt'l complaints, except as documented Respiratory/Chest Respiratory/Chest: Reports systems reviewed and no addt'l complaints, except as documented Gastrointestinal Gastrointestinal: Reports systems reviewed and no addt'l complaints, except as documented Physical Exam Const alert, oriented x3 and no apparent distress HEENT Head and Scalp: atraumatic Resp normal respiratory effort GI soft to palpation and non-tender Inspection: incision intact, healing well and drainage (none) Bimanual Exam - Vag & Uterus: uterus non-tender Uterus Palpation: uterus fundus firm (below Umbilicus) Assessment & Plan (1) of child: COMMENT: Aria, lost on day 2 of life. 34 week PPROM (2) Delivery by section: (3) Monochorionic diamniotic twin gestation: COMMENT: girls, seeing MFM for monitoring. Anatomy US normal; wkly bpp with mfm after 32 weeks PLAN: s/p LTCS PPD # 3 1. routine post care 2. breast feeding- support given 3. rh positive 4. rubella immune start celexa
--- NOTE | 2021-06-24 11:48 | DS.PCM_ITS ---
Providers Date of Admission: 06/20/21 Primary Care Physician: Dr. Magalis Damico MD Reason For Visit: LABOR AND DELIVERY Diagnosis Discharge Diagnosis (1) of child: Status: Acute Code(s): Z63.4 - Disappearance and of family member (2) Delivery by section: Status: Acute (3) Monochorionic diamniotic twin gestation: Status: Acute Code(s): O30.039 - Twin , monochorionic/diamniotic, unspecified trimester Medications at Discharge Home Medications ferrous sulfate 325 mg (65 mg iron) tablet 325 mg PO DAILY 04/23/21 vitamins no.119-iron fumarate 29 mg-folic acid 1 mg tablet 1 tab PO DAILY 05/05/21 levothyroxine [Synthroid] 12.5 mcg PO DAILY 06/18/21 docusate sodium [Colace] 100 mg PO DAILY 14 Days #14 cap 06/21/21 ibuprofen 800 mg PO Q8H PRN 7 Days #30 tab 06/21/21 oxycodone-acetaminophen [Percocet] 1 tab PO Q4H PRN 7 Days #28 tab 06/21/21 citalopram 20 mg PO DAILY #30 tab 06/24/21 ibuprofen 600 mg PO Q6H #30 tab 06/24/21 oxycodone 5 - 10 mg PO Q4H PRN PRN 7 Days #20 tab 06/24/21 Hospital Course Summary of Care Provided Hospital Course: 31-year-old G2, P0 presented at 34 weeks with PPROM with mono di twins. was conceived via IVF and had been receiving cocare with maternal- medicine and [facility]. She was given steroids initially and manage expectantly, may change to 6 cm and then baby A had a bradycardia and was delivered via stat . Both babies were delivered and see special care nursery information for resuscitation and supportive efforts. Maternal recovery was routine physically with return of bowel and bladder function, she was ambulating tolerating p.o. and had adequate pain cont rol with oral medications and was stable for discharge to home on postop day three. Patient was started on Celexa due to the stress of losing one of the twins, as well as pain medication which was prescribed for routine post recovery. Weight / BMI Weight Weight: 163 lb 2.273 oz Body Mass Index (BMI) 27.1 ABG / Lab / Microbiology Data Result Diagrams: 06/22/21 05:55 Microbiology: Microbiology 06/20/21 Unknown Genital vaginal Group B Streptococcus Culture - Final Group B Beta Streptococcus is not isolated. 06/20/21 16:30 Urine, Clean Catch Urine Culture - Final Mixed Gram Positive Organisms 06/20/21 17:00 Nasal Secretion SARS-CoV-2 Antigen (Rapid) - Final D/C Instructions Discharge Diet: No restrictions Discharge Activity: May Not Drive (for 2 weeks or while taking narcotic pain medications.), May Shower and May Take a Tub Bath (in 7 days) May shower in (days): 0 May resume sexual activity in: 4-6 weeks Weight Bearing Status: Full weight bearing Call your doctor if your incision/area has: Continuous Slow Oozing, Sudden Increased Bleeding, Increased Pain/ Swelling, Increased Redness and Foul Smelling Discharge Call your doctor if you observe: Fever of 101 or Higher and Using more than 1 pad per hour Suture Line Care: Avoid Pulling/Pushing and Avoid Pinching/Bending Cleanse incision/area with: Soap & Water and Keep Dressing Clean & Dry Please Follow Up With: Andree Castillo DO When: Call [phone] to make an appointment for an incision check in 1-2 weeks. Meaningful Use Info Meaningful Use Diagnoses (Choose all that apply): None applicable Discharge Plan Admission Admit Date/Time: 06/20/21 14:00 Primary Reason for Your Visit: section Attending Provider: Andree Castillo Primary Care Provider: Magalis Damico Discharge Orders/Prescriptions Prescriptions: New docusate sodium [Colace] 100 mg capsule 100 mg PO DAILY 14 Days Qty: 14 RF: 0 ibuprofen 800 mg tablet 800 mg PO Q8H PRN (Reason: pain) 7 Days Qty: 30 RF: 0 oxycodone-acetaminophen [Percocet] 5-325 mg tablet 1 tab PO Q4H PRN (Reason: pain (scale score 7-10)) 7 Days Qty: 28 RF: 0 citalopram 20 mg Tablet 20 mg PO DAILY Qty: 30 RF: 12 ibuprofen 600 mg Tablet 600 mg PO Q6H Qty: 30 RF: 2 oxycodone 5 mg Tablet 5 - 10 mg PO Q4H PRN PRN (Reason: Pain Score 4-10) 7 Days Qty: 20 RF: 0 Continued ferrous sulfate 325 mg (65 mg iron) tablet 325 mg PO DAILY RF: 0 PNV 119-iron fum-folic acid 29 mg iron- 1 mg tablet 1 tab PO DAILY RF: 0 levothyroxine [Synthroid] 25 mcg tablet 12.5 mcg PO DAILY RF: 0 Discontinued aspirin [Aspir-Low] 81 mg Tablet,Delayed Release (Dr/Ec) 81 mg PO DAILY RF: 0 Referrals / Follow Up: Magalis Damico MD [Primary Care Provider] - Disposition Disposition (needs filled in before D/C Order can be placed): Home, Self Care
[2021-06-24 14:00] VITALS: BP 122/73; PULSE 70; RESP 16; TEMP 36.8; O2SAT 98
== END 2021-06-24 15:55 | disposition home or self-care (01) | DRG 787 ==
LOC: WPOUT 14:05 → WP 14:05
PROVIDERS: Admitting Provider Obstetrics & Gynecology; PCP Family Medicine; Referring Provider Obstetrics & Gynecology; Visit Provider Obstetrics & Gynecology
DX: O76 Abnormality in fetal heart rate and rhythm complicating labor and delivery (principal); E71.310 Long chain/very long chain acyl CoA dehydrogenase deficiency; O42.913 Preterm premature rupture of membranes, unspecified as to length of time between rupture and onset of labor, third trimester; O30.033 Twin pregnancy, monochorionic/diamniotic, third trimester; O69.81X1 Labor and delivery complicated by cord around neck, without compression, fetus 1; Z3A.34 34 weeks gestation of pregnancy; Z37.2 Twins, both liveborn; Z63.4 Disappearance and death of family member
CPT/HCPCS: 59025; 59050; 74018; 76815; 81001; 84112; 85025; 85027; 86850; 86900; 86901; 87081; 87086; 87088; 87426; 87491; 87591; 87653; 99218; 99251; J7120; G0378; G0463; J0702; J2405; J3490

== ENCOUNTER → 2022-02-03 | Outpatient (CLI) | payer OTHER, SELFPAY ==
[2022-02-05 16:08] LABS: Dilute Prothrombin Time (dPT) 35.6 sec (0.0-47.6); Dilute Russell Viper Venom 33.2 sec (0.0-47.0); Thrombin Time 18.5 sec (0.0-23.0); dPT Confirm Ratio 0.89 Ratio (0.00-1.34)
[2022-02-05 17:13] LABS: Anti-Cardiolipin Ab, IgA, Qn < 9 APL U/mL (0-11); Anti-Cardiolipin Ab, IgG, Qn < 9 GPL U/mL (0-14); Anti-Cardiolipin Ab, IgM, Qn < 9 MPL U/mL (0-12); Beta-2-Glycoprotein I IgA <9 (0-25); Beta-2-Glycoprotein I IgG <9 (0-20); Beta-2-Glycoprotein I IgM <9 (0-32); Interpretation Comment: (.)
[2022-02-09 08:50] LABS: HPV APTIMA, High Risk Negative (Negative)
== END | disposition home or self-care (01) ==
PROVIDERS: PCP Family Medicine; Visit Provider Nurse Practitioner Women's Health
DX: Z01.419 Encounter for gynecological examination (general) (routine) without abnormal findings (principal); N96 Recurrent pregnancy loss
CPT/HCPCS: 36415; 86146; 86147; 87624; 88175; G0145

== ENCOUNTER → 2022-07-22 | Outpatient (CLI) | payer OTHER, SELFPAY ==
[2022-07-22 08:38] LABS: T4 Free Direct 0.94 ng/dL (0.76-1.46); Thyroid Stim Hormone (TSH) 2.11 uIU/mL (0.358-3.74)
[2022-07-22 09:16] LABS: HIV - WCH Non-Reactive (Nonreactive); Hepatitis B Surface Antigen Non-Reactive (Nonreactive); Hepatitis C Antibody Non-Reactive (Nonreactive); Rubella IgG Reactive (Nonreactive); Syphilis Antibodies Non-reactive
[2022-07-22 09:57] LABS: Chlamydia Trachomatis by PCR Negative (Negative); Neisserai gonorrhoeae by PCR Negative (Negative); Probe Check PASS; Sample Adequacy Control PASS; Specimen Processing Control PASS
[2022-07-24 14:18] LABS: V-Zoster IgG (Immunity) 1620 index (Immune >165)
== END | disposition home or self-care (01) ==
LOC: LAB 07:09
PROVIDERS: PCP Family Medicine; Referring Provider Obstetrics & Gynecology Reproductive Endocrinology; Visit Provider Obstetrics & Gynecology Reproductive Endocrinology
DX: Z01.83 Encounter for blood typing (principal); Z11.59 Encounter for screening for other viral diseases; E02 Subclinical iodine-deficiency hypothyroidism; Z11.8 Encounter for screening for other infectious and parasitic diseases
CPT/HCPCS: 36415; 84439; 84443; 86703; 86762; 86780; 86787; 86803; 86850; 87340; 87491; 87591

== ENCOUNTER → 2022-10-25 | Outpatient (CLI) | payer OTHER, SELFPAY ==
[2022-10-25 08:58] LABS: hCG Titer Quant., Serum 245 mIU/mL (1-3)
== END | disposition home or self-care (01) ==
LOC: LAB 07:23
PROVIDERS: PCP Family Medicine; Referring Provider Obstetrics & Gynecology Reproductive Endocrinology; Visit Provider Obstetrics & Gynecology Reproductive Endocrinology
DX: Z32.00 Encounter for pregnancy test, result unknown (principal)
CPT/HCPCS: 36415; 84702

== ENCOUNTER → 2022-10-27 | Outpatient (CLI) | payer OTHER, SELFPAY ==
[2022-10-27 08:37] LABS: hCG Titer Quant., Serum 438 mIU/mL (1-3)
== END | disposition home or self-care (01) ==
LOC: LAB 07:11
PROVIDERS: PCP Family Medicine; Referring Provider Obstetrics & Gynecology Reproductive Endocrinology; Visit Provider Obstetrics & Gynecology Reproductive Endocrinology
DX: Z32.01 Encounter for pregnancy test, result positive (principal)
CPT/HCPCS: 36415; 84702

== ENCOUNTER 2022-11-26 09:57 | Day surgery (SDC) | payer OTHER, SELFPAY ==
[2022-11-26] VITALS (7 sets, daily range): BP systolic 94–117; BP diastolic 53–78; PULSE 55–82; RESP 12–18; TEMP 36.2–36.8; O2SAT 98–100; BMI 20.7
[2022-11-26] MEDS: Lactated Ringers 1,000 ML 15 ML IV (10:30)
--- NOTE | 2022-11-26 10:43 | HP.PCM_ITS ---
History and Physical Date of Admission: 11/26/22 Intake Vital Signs ? 11/25/2309:34 11/25/2309:47 Height 5 ft 5 in 5 ft 5 in Weight: ? 127 lb 4 oz BMI ? 21.2 BP ? 133/85 H Intake Visit Reasons:?NOB LMP ? *ivf pt* Assistant Vice President Required: No Is patient in pain?: No Allergies No Known Allergies Allergy (Verified 11/25/22 10:34) Medications vitamins no.119-iron fumarate 29 mg-folic acid 1 mg tablet 1 tab PO DAILY Check with primary doctor 05/05/21 [History Confirmed 11/25/22] Saccharomyces boulardii 250 mg capsule (Daily Probiotic (S. boulardii)) 250 mg PO BID 02/03/22 [History Confirmed 11/25/22] cholecalciferol (vitamin D3) 50 mcg (2,000 unit) capsule 50 mcg PO DAILY 02/03/22 [History Confirmed 11/25/22] ascorbate calcium (vitamin C) 500 mg tablet 500 mg PO DAILY 08/05/22 [History Confirmed 11/25/22] magnesium citrate 100 mg tablet 100 mg PO DAILY 08/05/22 [History Confirmed 11/25/22] citalopram 20 mg tablet See Rx Instructions .Route .COMPLEX #90 tabs 11/01/22 [Rx Confirmed 11/25/22] levothyroxine 25 mcg tablet (Synthroid) See Rx Instructions .Route .COMPLEX #45 tabs 11/01/22 [Rx Confirmed 11/25/22] estradiol 0.5 mg tablet (Estrace) 0.5 mg PO BID 11/25/22 [History Confirmed 11/25/22] progesterone 50 mg/mL intramuscular oil 5 mg IM DAILY 11/25/22 [History Confirmed 11/25/22] Last Menstrual Period: 10/14/22 Zika: Zika virus screening: Negative : No PFSH PFSH Medical History? Abnormal glucose affecting Infertility Monochorionic diamniotic twin gestation Thyroid disorder Surgical History? Delivery by section History of gynecologic surgery History of wisdom tooth extraction, class II edentulism Status post Family History? Father Cancer ?? ? skinSister Cancer ?? ? hodgkins lymphoma 2011 Social History? Smoking Status:? Never smoker alcohol intake:? current details:? social substance use type:? does not use caffeine:? Yes what type of physical activity do you participate in:? walking frequency:? 5-6 times per week seatbelt use:? always do you feel safe at home:? Yes additional social history:? 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 ? ? 3 ? Elective abortions ? Hx Para ? ? ? 1 ? Spontaneous abortions ? ? ? 1 Hx # Term Pregnancies ? Ectopic pregnancies ? Hx # Pregnancies ? Multiple births ? ? ? 1 ? # of living children ? ? ? 1 Past Pregnancies Del. Date Name GA/Weeks Outcome Route Bth Weight Infant Gen Labor Lgth Anesthesia Del Locatn Provider FOB 06/21/21 Aria (dec) 34 live - 4lbs 1 0oz Female ? ? [facility] Dr. Duarte ? 06/21/21 [facility] 34 live - 5lbs 3 oz ? ? ?A [facility] Dr. Castillo ? Delivery Date: 06/21/21? Last Updated by: Magalis Noyola ? ? ? PPROM 34 weeks, mono di twins, stat LTCS len 6cm, ph 7.2 resuscitation, 2 days Delivery Date: 06/21/21? Last Updated by: Magalis Noyola ? ? ? PPROM 34 weeks, mono di twins, stat LTCS len baby A, 6cm, ph 7.2 HPI NOB LMP ? *ivf pt* Details: SRINIVASA KNIGHT is a 32 year old who presents for New OB visit. OB Visit MAGDALENA Calculator ? Estimated Delivery Date Method Current WG Current Estimate 07/02/23 Conception 8w 5d Initial Weight:?Not Recorded Date -?-?-?-?-?-?-?-?-?-?-?-?- EGA Weight BP Urine Prot -?-?-?-?-?-?-?-?-?-?-?-?- Glucose FHR FuHt Pres Dilation -?-?-?-?-?-?-?-?-?-?-?-?- Effaced St Visit Note 11/25/22-?-?-?-?-?-?-?-?-?-?-?-?- 8w 5d 127 lb 4 oz 133/85 -?-?-?-?-?-?-?-?-?-?-?-?- ? -?-?-?-?-?-?-?-?-?-?-?-?- ? ? JV- mono/di appearing gestation, no heart tones on either fetus. Both measuring 9 weeks. pt tearful. D&C offered. will plan for tomorrow if possible. Menstrual History Last Menstrual Period: 10/14/22 ACOG First Trimester First Trimester: Discussed ROS Const All systems reviewed & are unremarkable except as noted in H Resp Reports system reviewed and no additional complaints, except as documented and Denies cough GI Reports as per HPI Psych Reports system reviewed and no additional complaints, except as documented Exam Const General: cooperative, healthy appearing, comfortable and no acute distress Resp Effort & Inspection: normal respiratory effort General: bimanual renal exam normal bilaterally External Female Exam: normal appearance of the urethra Urethra: normal appearance of the urethra Speculum Exam - Vagina: normal appearance of the vagina Speculum Exam - Cervix: normal appearance of the cervix Bimanual Exam- Adnexa, other: normal adnexae and normal Pelvic Support: normal Skin General: no rashes or lesions noted Psych Appearance: grossly normal Speech and Movement: speech and movement normal Coding Level of Care Code Off vis,est,level 4 Diagnoses Twin in first trimester? O30.001 History of ? Z98.891 ? Z34.90 Supervision of elderly multigravida in first trimester (>=35 years old at time of delivery)? O09.521 Depression? F32.A Infertility? of child? 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 O02.1 Assessment and Plan Assessment and Plan (1) Twin in first trimester: ?Status:?Acute ?Comment: embryo transfer split (2) History of : ?Status:?Acute (3) : ?Status:?Acute (4) Supervision of elderly multigravida in first trimester (>=35 years old at time of delivery): ?Status:?Acute ?Comment: Aria (dec), Ambia Spouse: Rachid (5) Depression: ?Status:?Acute ?Comment: celexa, counseling. (6) Infertility: ?Status:?Acute ?Comment: HX IVF (7) of child: ?Status:?Acute ?Comment: Whitney, lost on day 2 of life.? 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 (9) Missed : ?Status:?Acute ?Plan: After discussing the patient's diagnosis and treatment plan options, patient wishes to proceed with surgical management.? I have discussed with the patient the risks, benefits, and alternatives of the procedure which include but are not limited to risks of anesthesia, bleeding, infection, possible damage to bowel, bladder, or surrounding vasculature which could lead to additional surgery to evaluate any complications.? Patient agrees to procedure and wishes to proceed.? ACOG/uptodate references given for additional information regarding procedure.? plan for suction dilation and curettage
[2022-11-26 10:46] LABS: Hematocrit 41.8 % (37-47); Mean Corp Hgb Conc 33.5 g/dL (32-36); Mean Corpuscular Hgb 30.2 pg (27.0-32.0); Mean Corpuscular Volume 90.3 fL (81-99); Mean Platelet Vol. 10.9 fl (6.2-12.0); Platelet Count 355 K/mm3 (150-450); RBC Distribution Width CV 11.7 % (11.6-14.6); RBC Distribution Width SD 38.2 fl (35.1-43.9); Red Blood Count 4.63 M/mm3 (4.2-5.4); White Blood Count 8.4 K/mm3 (4.4-11.0)
--- NOTE | 2022-11-26 11:30 | POC_PTH ---
PATIENT: SRINIVASA KNIGHT LOC: [facility] U#:[id number] AGE/SX: 32/F ROOM: RE11/26/[address]: Dr. Andree Castillo DO : 1990 BED: DIS: 11/26/2022 SPEC #: [id number] RECD: 11/26/22 13:22 STATUS: OMAYRA ERICKSON #: [id number] GERRY: 11/26/22 11:[address]: Andree Castillo DEPT: SURGICAL PATHOLOGY RECD BY: Yamilka Pedroza ENTERED: 11/26/22 13:49 SP TYPE: PROD CONC OTHR DR: Dr. Magalis Damico MD Tissues: Product of conception, NOS Procedures: Surgery Specimen Level IV HEADER OPERATION: Suction dilation and curettage PRE-OP DIAGNOSIS: Missed TISSUE SUBMITTED: Products of conception (Anora Test) MICROSCOPIC DIAGNOSIS Endometrium, curettage: Chorionic villi, decidualized stroma and trophoblastic cells consistent with products of conception. AM:lynda 11/29/2022 COMMENT The results of Anora study will be reported separately. MICROSCOPIC DESCRIPTION Slides are reviewed. GROSS DESCRIPTION Received in fixative is one container labeled with the patient's name and designated products of conception. The specimen consists of multiple irregular fragments of red-mantilla soft tissue that in aggregate measure 5.0 x 5.0 x 0.8 cm. Dope Firer portions are submitted for Anora testing. Dope Firer portions are submitted one cassette. / AM:lynda 11/26/2022 TC:5 CPT: [id number] ADDENDUM ADDENDUM ADDENDUM ADDENDUM ADDENDUM ADDENDUM ADDENDUM ADDENDUM 12/13/2022 10:34 ADDENDUM 12/13/2022 10:34 ADDENDUM 12/13/2022 10:34 ADDENDUM 12/13/2022 10:34 ADDENDUM 12/13/2022 10:34 ANORA MICROARRAY CHROMOSOME ANALYSIS WITH PARENTAL SUPPORT RESULT: Normal male MICROARRAY RESULT: arr(1-22)x2,(XY)x1 CLINICAL INTERPRETATION: Normal male result. Please see complete report in e-chart or EMR
[2022-11-26] MEDS: Cefotetan 2 GM in 0.9% NS 100 ML IV (12:34)
--- NOTE | 2022-11-26 12:40 | PCM.DC ---
Discharge Instructions Diet Discharge Diet: No restrictions Activity Discharge Activity: Return to Normal Activity, May Shower and May Take a Tub Bath (after 1 week) May resume sexual activity in: 1-2 weeks Weight Bearing Status: Weight bearing as tolerated Lifting Restrictions: none Dressing / Incision Call your doctor if you observe: Fever of 101 or Higher, Using more than 1 pad per hour, Shortness of breath and Uncontrolled pain Follow Up Care Please Follow Up With: Andree Castillo DO When: Call [phone] to schedule appointment. Test Results: Test results from this visit will be discussed in further detail at your follow-up appointment, if applicable. Discharge Plan Admission Primary Reason for Your Visit: dilation and curettage Attending Provider: Andree Castillo Primary Care Provider: Magalis Damico Discharge Orders/Prescriptions Prescriptions: New ibuprofen 800 mg tablet 800 mg PO Q8H PRN (Reason: pain) Qty: 30 0RF hydrocodone-acetaminophen 5-325 mg tablet 1 tab PO Q4H PRN (Reason: pain) 3 Days Qty: 5 0RF Continued PNV 119-iron fum-folic acid 29 mg iron- 1 mg tablet 1 tab PO DAILY cholecalciferol (vitamin D3) 50 mcg (2,000 unit) capsule 50 mcg PO DAILY Saccharomyces boulardii [Daily Probiotic (S. boulardii)] 250 mg capsule 250 mg PO BID ascorbate calcium (vitamin C) 500 mg tablet 500 mg PO DAILY magnesium citrate 100 mg tablet 100 mg PO DAILY citalopram 20 mg tablet 20 mg PO DAILY Rx Instructions: TAKE 1 TABLET DAILY levothyroxine [Synthroid] 25 mcg tablet See Rx Instructions .ROUTE .COMPLEX Qty: 45 3RF Dose Instruction: TAKE 1/2 TABLET DAILY Rx Instructions: TAKE 1/2 TABLET DAILY Referrals / Follow Up: Magalis Damico MD [Primary Care Provider] - Disposition Disposition (needs filled in before D/C Order can be placed): Home, Self Care
[2022-11-26] MEDS: Lidocaine 1% (20 ml mdv) 20 ML Vial (12:54)
--- NOTE | 2022-11-26 13:03 | OP.PCM_ITS ---
Problems Associated Problem List Diagnoses (1) Long-chain acyl-CoA dehydrogenase deficiency: (2) of child: (3) Depression: (4) Supervision of elderly multigravida in first trimester (>=35 years old at time of delivery): (5) : (6) History of : (7) Twin in first trimester: (8) Missed : (9) Infertility: Report of Operation Date of Procedure: 11/26/22 Pre-Operative Diagnosis: missed mono/di twin gestation at 9 weeks Post-Operative Diagnosis: missed mono/di twin gestation at 9 weeks Surgery/Procedure Performed:: suction dilation and curettage Surgeon: Andree Castillo sap technical architect: None Type of Anesthesia: MAC/Supplemental/Local Specimen's removed: products of conception Estimated Blood Loss (mL): 50cc Description of Procedure: Patient was brought to the operating room where MAC anesthesia was found to be adequate she was prepped and draped in the normal sterile fashion. Her legs were placed in stirrups a weighted speculum was placed in the vagina and the anterior lip of the cervix was grasped with single-tooth tenaculum. The uterus was sounded to 12 cm. Under bedside ultrasound guidance a 9 curved suction curettage was placed into the uterus after careful dilation. The suction device was used to evacuate the contents of the uterus with 2 passes. Sharp curettage was then performed until gritty texture was noted. The single-tooth tenaculum was removed from the cervix and scant bleeding was noted the patient tolerated the procedure well sponge lap and needle counts were correct x2 she is now being brought to the recovery room in stable condition. Complications none Multi Select Codes Urinary/Genital Urinary/Genital CPT Codes: 30066 Surg Trtmt missed Ab 1TM
[2022-12-14 06:13] LABS: Pathology Specimen OB SEE PATHOLOGY REPORT
== END 2022-11-26 14:49 | disposition home or self-care (01) ==
LOC: SDC 09:58 → AC 12:40
PROVIDERS: PCP Family Medicine; Referring Provider Obstetrics & Gynecology; Visit Provider Obstetrics & Gynecology
PROC: (CPT 59820; principal; 2022-11-26 11:15)
DX: O02.1 Missed abortion (principal); E71.310 Long chain/very long chain acyl CoA dehydrogenase deficiency; O34.219 Maternal care for unspecified type scar from previous cesarean delivery; F32.A Depression, unspecified; O99.341 Other mental disorders complicating pregnancy, first trimester; O99.281 Endocrine, nutritional and metabolic diseases complicating pregnancy, first trimester; O30.041 Twin pregnancy, dichorionic/diamniotic, first trimester; Z63.4 Disappearance and death of family member; Z3A.09 9 weeks gestation of pregnancy
CPT/HCPCS: 59820; 01965; 85027; 86850; 86900; 86901; 88305; J7120; J2405

== ENCOUNTER → 2023-01-28 | Outpatient (CLI) | payer OTHER, SELFPAY ==
[2023-01-30 15:07] LABS: Anti-Cardiolipin Ab, IgA, Qn < 9 APL U/mL (0-11); Anti-Cardiolipin Ab, IgG, Qn < 9 GPL U/mL (0-14); Anti-Cardiolipin Ab, IgM, Qn 9 MPL U/mL (0-12); Beta-2-Glycoprotein I IgA <9 (0-25); Beta-2-Glycoprotein I IgG <9 (0-20); Beta-2-Glycoprotein I IgM <9 (0-32); Dilute Prothrombin Time (dPT) 35.9 sec (0.0-47.6); Dilute Russell Viper Venom 32.4 sec (0.0-47.0); Interpretation Comment: (.); PTT-LA 35.8 sec (0.0-43.5); Thrombin Time 17.5 sec (0.0-23.0); dPT Confirm Ratio 0.95 Ratio (0.00-1.34)
== END | disposition home or self-care (01) ==
LOC: PAVLAB 07:52
PROVIDERS: PCP Family Medicine; Referring Provider Obstetrics & Gynecology; Visit Provider Obstetrics & Gynecology
DX: N96 Recurrent pregnancy loss (principal)
CPT/HCPCS: 36415; 86146; 86147

== ENCOUNTER → 2023-02-16 | Outpatient (CLI) | payer OTHER, SELFPAY ==
[2023-02-16 07:37] LABS: Thyroid Stim Hormone (TSH) 2.55 uIU/mL (0.358-3.74)
== END | disposition home or self-care (01) ==
LOC: LAB 06:11
PROVIDERS: PCP Family Medicine; Referring Provider Obstetrics & Gynecology Reproductive Endocrinology; Visit Provider Obstetrics & Gynecology Reproductive Endocrinology
DX: E03.9 Hypothyroidism, unspecified (principal)
CPT/HCPCS: 36415; 84443

== ENCOUNTER → 2023-02-23 | Outpatient (CLI) | payer OTHER, SELFPAY ==
[2023-02-23 08:05] LABS: T4 Free Direct 1.03 ng/dL (0.76-1.46); Thyroid Stim Hormone (TSH) 3.09 uIU/mL (0.358-3.74)
== END | disposition home or self-care (01) ==
LOC: LAB 06:12
PROVIDERS: PCP Family Medicine; Referring Provider Obstetrics & Gynecology Reproductive Endocrinology; Visit Provider Obstetrics & Gynecology Reproductive Endocrinology
DX: E03.9 Hypothyroidism, unspecified (principal)
CPT/HCPCS: 36415; 84439; 84443

== ENCOUNTER → 2023-03-21 | Outpatient (CLI) | payer OTHER, SELFPAY ==
[2023-03-21 07:58] LABS: Thyroid Stim Hormone (TSH) 2.15 uIU/mL (0.358-3.74)
== END | disposition home or self-care (01) ==
LOC: LAB 06:12
PROVIDERS: PCP Family Medicine; Referring Provider Obstetrics & Gynecology Reproductive Endocrinology; Visit Provider Obstetrics & Gynecology Reproductive Endocrinology
DX: E03.9 Hypothyroidism, unspecified (principal)
CPT/HCPCS: 36415; 84439; 84443

== ENCOUNTER → 2023-05-02 | Outpatient (CLI) | payer OTHER, SELFPAY ==
[2023-05-02 09:19] LABS: hCG Titer Quant., Serum 10 mIU/mL (1-3)
== END | disposition home or self-care (01) ==
LOC: LAB 07:18
PROVIDERS: PCP Family Medicine; Referring Provider Obstetrics & Gynecology Reproductive Endocrinology; Visit Provider Obstetrics & Gynecology Reproductive Endocrinology
DX: Z32.00 Encounter for pregnancy test, result unknown (principal)
CPT/HCPCS: 36415; 84702

== ENCOUNTER → 2023-05-04 | Outpatient (CLI) | payer OTHER, SELFPAY ==
[2023-05-04 07:17] LABS: hCG Titer Quant., Serum 3 mIU/mL (1-3)
[2023-05-04 07:22] LABS: Thyroid Stim Hormone (TSH) 1.89 uIU/mL (0.358-3.74)
== END | disposition home or self-care (01) ==
LOC: LAB 06:15
PROVIDERS: PCP Family Medicine; Referring Provider Obstetrics & Gynecology Reproductive Endocrinology; Visit Provider Obstetrics & Gynecology Reproductive Endocrinology
DX: Z32.01 Encounter for pregnancy test, result positive (principal); E03.9 Hypothyroidism, unspecified
CPT/HCPCS: 36415; 84443; 84702

== ENCOUNTER → 2023-08-15 | Outpatient (CLI) | payer OTHER, SELFPAY ==
--- OUTSIDE RECORDS SUMMARY | 2023-08-15 07:49 | XMS RPT_ITS | CCD ---
Author Name Unknown Address [address] [place] [id number] Organization [facility] Care Team Providers Care Dock Clerk Name Role Phone ANT BRYANT Admitting ANT De La Torre Attending LAURIE Villanueva Primary Care Unavailable SOLITARIO HARLEY Consulting Unavailable RAHEEM HIDALGO NP Admitting Unavailable RAHEEM HIDALGO NP Attending Unavailable LAURIE GARRETT Primary Care Unavailable Problems Problem Classification Problem Date Documented Da te Episodic/Chronic Other aftercare (1 source) Other usp (current) drug therapy; Translations: [OTH [facility]PC CURRENT DRUG THERAPY] Onset: 06-28-2019 Episodic Other female genital disorders (2 sources) Polyp of corpus uteri; Translations: [POLYP OF CORPUS UTERI] Onset: 06-28-2019 Episodic Thyroid disorders (1 source) Hypothyroidism, unspecified; Translations: [HYPOTHYROIDISM UNSPECIFIED] Onset: 06-28-2019 Chronic Results Test Name Value Interpretation Reference Range Facil ity Encounters Encounter Date Encounter Type Care Provider Facility Start: 06-12-2019 End: 06-12-2019 Patient encounter procedure [facility] Start: 06-06-2019 Patient encounter procedure RAHEEM Rao NP [facility] Payers Date Payer Category Payer Unknown [id number] 1961 Unknown [id number] Clinical Note 01-06-2021 Note Date & Type Note Facility 01-06-2021 Note Consultation request ed by Dr. Bryant Reason for Consult Racheal Knight (Liz) was referred for an ultrasound evaluation and genetic counseling by Dr. Ant Bryant in order to determine the chorionicity of her twin and to discuss available screening and diagnostic testing options for defects. (Kat will be initiating obstetric care with Dr. Twyla Nichole beginning on 01/30/2021.) She was accompanied by her , Rachid. Today's ultrasound established that this is a monochorionic-diamniotic History At the time of the visit, Kat was 30 y.o. and 10w6d gestation by prior established dating into her second , with an Estimated Date of Delivery: 07/29/2021. This is a monochorionic-diamniotic twin that resulted from a single frozen embryo transfer on 11/10/2020. Preimplantation genetic testing was performed, and the embryo that was transferred was predicted to be euploid. Past Medical History Allergies, seasonal Low normal thyroid function Myopia, mild Kat reported that she and her tried to conceive on their own for about one year. Kat's 's semen analysis was significant for decreased sperm morphology. No other barriers to conception were apparently identified, and they began to see Dr. Bryant in the fall. Kat reported that they have gone through two IVF cycles; preimplantation genetic testing for chromosome abnormalities was pursued with both cycles. Their current resulted from their fourth embryo transfer. With their first embryo transfer, there was initially a positive hCG; however, the hCG did not double as expected, and it was considered to be a chemical . With their other two embryo transfers, there was never a positive hCG. Imaging Information Dating/Viability Ultrasound (12/18/2020) - 1. Diamniotic twin gestation at 8w1d with an MAGDALENA of 07/29/2021. Unable to determine chorionicity. 2. [place]-rump length measurements are consistent with supplied dating (Baby A: 8w0d; Baby B: 8w0d). 3. Normal uterus and adnexa. The ultrasound performed at this visit noted the following: Monochorionic-diamniotic twin . Concordant growth with CRL matching dates (10w6d as expected by prior established dating). MAGDALENA is 08/18/2021. Normal NT in each (Baby A 1.0 mm; Baby B: 1.1 mm). Abnormal NT detects 60% of trisomy 21. One large placenta is noted with a thin intervening membrane. Please refer to the ultrasound report for full details. Prior Screening/Testing Preimplantation Genetic Testing for Aneuploidy at [facility] (date of biopsy: 04/14/2019) - Gender not reported below since Kat and her did not want to know this information at the time of the embryo transfer. ET1: Abnormal: +9p; D6 biopsy; Jesus score ranking: N/A ET2: Normal; D6 biopsy; Jesus score rankin ET3: Abnormal: -22; D6 biopsy; Ejsus score ranking: N/A Preimplantation Genetic Testing for Aneuploidy at [facility] (date of biopsy 09/18/2020) - Gender not reported below since Kat and her did not want to know this information at the time of the embryo transfer. 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 One copy of the c.848T>C (p.V283A) pathogenic variant in the ACADVL gene Negative for all other genes tested Residual carrier risk for classic congenital adrenal hyperplasia due to 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: 1 in 1,300 ( Non-[place]ian: 95% detection) Residual carrier risk for non-classic congenital adrenal hyperplasia due to 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: 1 in 200 ( Non-[place]ian: 95% detection) Residual carrier risk for hereditary fructose intolerance: 1 in 1,900 ( Non-[place]ian: 96% detection) Residual carrier risk for Zellweger syndrome, [id number]: 1 in 6,300 ( detection rate: 80%) Spouse's Prior Screening/Testing Sema4 Expanded Carrier Screen, 283 Genes (02/01/2019) - Positive 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 3 copies of the DSQ68P9 gene detected One copy of the c.952C>T (p.Q318X) pathogenic variant in the RSI30R0 gene 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 [facility] Summary Purpose Family History No Family History Records FoundNo Family History Records FoundNo Family History Records Found Advance Directives No Advanced Directives Records FoundNo Advanced Directives Records FoundNo Advanced Directives Records Found Additional Source Comments INFORMATION SOURCE (unrecogn ized section and content) DATE CREATED AUTHOR AUTHOR'S ORGANIZ ATION 06/29/2019 [facility] DATE CREATED AUTHOR AUTHOR'S ORGANIZ ATION 06/15/2021 [facility] FOR RECORDS PERTAINING TO PATIENTS WHO ARE OR HAVE BEEN ENROLLED IN A CHEMICAL DEPENDENCY/SUBSTANCEABUSE PROGRAM, SOME INFORMATION MAY BE OMITTED. This clinical summary was aggregated from multiple sources. Caution should be exercised in using it in the provision of clinical care. This summary normalizes information from multiple sources, and as a consequence, information in this document may materially change the coding, format and clinical context of patient data. In addition, data may be omitted in some cases. CLINICAL DECISIONS SHOULD BE BASED ON THE PRIMARY CLINICAL RECORDS. [facility] [employer] [facility]. provides no warranty or guarantee of the accuracy or completeness of information in this document.
[2023-08-15 09:29] LABS: hCG Titer Quant., Serum < 1 mIU/mL (1-3)
== END | disposition home or self-care (01) ==
LOC: LAB 07:35
PROVIDERS: PCP Family Medicine; Referring Provider Obstetrics & Gynecology Reproductive Endocrinology; Visit Provider Obstetrics & Gynecology Reproductive Endocrinology
DX: Z32.00 Encounter for pregnancy test, result unknown (principal)
CPT/HCPCS: 36415; 84702

== ENCOUNTER → 2024-01-26 | Outpatient (CLI) | payer OTHER, SELFPAY ==
[2024-01-26 16:55] LABS: Thyroid Stim Hormone (TSH) 1.52 uIU/mL (0.358-3.74)
[2024-01-27 06:52] LABS: T4 Free Direct 0.99 ng/dL (0.76-1.46)
== END | disposition home or self-care (01) ==
LOC: LAB 15:26
PROVIDERS: PCP Family Medicine; Referring Provider Obstetrics & Gynecology Reproductive Endocrinology; Visit Provider Obstetrics & Gynecology Reproductive Endocrinology
DX: E02 Subclinical iodine-deficiency hypothyroidism (principal)
CPT/HCPCS: 36415; 84439; 84443

== ENCOUNTER → 2024-03-15 | Outpatient (CLI) | payer OTHER, SELFPAY ==
[2024-03-15 07:32] LABS: hCG Titer Quant., Serum 16 mIU/mL (1-3)
== END | disposition home or self-care (01) ==
LOC: LAB 06:08
PROVIDERS: PCP Family Medicine; Referring Provider Obstetrics & Gynecology Reproductive Endocrinology; Visit Provider Obstetrics & Gynecology Reproductive Endocrinology
DX: Z32.00 Encounter for pregnancy test, result unknown (principal)
CPT/HCPCS: 36415; 84702

== ENCOUNTER → 2024-03-19 | Outpatient (CLI) | payer OTHER, SELFPAY ==
[2024-03-19 07:30] LABS: hCG Titer Quant., Serum 2 mIU/mL (1-3)
== END | disposition home or self-care (01) ==
LOC: LAB 06:18
PROVIDERS: PCP Family Medicine; Referring Provider Obstetrics & Gynecology Reproductive Endocrinology; Visit Provider Obstetrics & Gynecology Reproductive Endocrinology
DX: Z32.01 Encounter for pregnancy test, result positive (principal); E02 Subclinical iodine-deficiency hypothyroidism
CPT/HCPCS: 36415; 84443; 84702

== ENCOUNTER 2024-06-26 12:01 | Day surgery (SDC) | payer OTHER, SELFPAY ==
[2024-06-23 07:51] LABS: Hematocrit 37.7 % (37-47); Hemoglobin 12.4 g/dL (12.0-15.0); Mean Corp Hgb Conc 32.9 g/dL (32-36); Mean Corpuscular Hgb 29.2 pg (27.0-32.0); Mean Corpuscular Volume 88.7 fL (81-99); Mean Platelet Vol. 10.7 fl (6.2-12.0); Platelet Count 291 K/mm3 (150-450); RBC Distribution Width CV 12.2 % (11.6-14.6); RBC Distribution Width SD 38.8 fl (35.1-43.9); Red Blood Count 4.25 M/mm3 (4.2-5.4); White Blood Count 6.1 K/mm3 (4.4-11.0)
[2024-06-23 08:19] LABS: Thyroid Stim Hormone (TSH) 0.395 uIU/mL (0.358-3.740)
[2024-06-26] VITALS (8 sets, daily range): BP systolic 101–115; BP diastolic 64–75; PULSE 78–93; RESP 14–16; TEMP 36.3–36.9; O2SAT 100; BMI 21.2
[2024-06-26 12:26] LABS: Internal QC Validated? YES +Cl - CLEAR BKGD; Pregnancy, Urine Negative Negative
[2024-06-26] MEDS: 0.9% Normal Saline (1000mL) 1,000 ML 15 ML IV (12:42)
--- NOTE | 2024-06-26 13:08 | PCM.PRE.AN2 ---
ASA Classification* ASA Classification ASA Classification: 2 Assessment & Plan Anesthesia* Anesthesia Assessment Anesthesia Assessment: Discussed sedation and/or anesthesia options, risks, benefits, and alternatives with patient/parents/legal guardian/POA. Questions invited. The patient/parents/legal guardian/POA seems to understand and agrees to proceed with anesthesia plan. Reviewed the physical assessment, medical history, allergy history and patient home medications list prior to surgery/procedure/anesthetic and documented any changes. Performed airway and anesthesia risk assessments. Anesthesia Type Anesthesia Type: General History Source History Obtained from:: Patient and Chart Anesthesia Focused Assessment* Temperature: 98.4 F Pulse Rate: 93 Blood Pressure: 101/64 Respiratory Rate: 16 Pulse Ox: 100 Oxygen Delivery Method: Room Air Airway Assessment Mouth opens: >3 cm Mallampati Score: I Teeth Condition: Intact Neck Range of motion (ROM): Full ROM Focused Labs Anesthesia Preop lab: CBC WBC 6.1 K/mm3 (4.4-11.0) 06/23/24 07:23 RBC 4.25 M/mm3 (4.2-5.4) 06/23/24 07:23 Hgb 12.4 g/dL (12.0-15.0) 06/23/24 07:23 Hct 37.7 % (37-47) 06/23/24 07:23 Plt Count 291 K/mm3 (150-450) 06/23/24 07:23 CHEMISTRY TSH 0.395 uIU/mL (0.358-3.740) 06/23/24 07:23 COAG HCG, Quant 2 mIU/mL (1-3) 03/19/24 06:21 Urine Test Negative Negative 06/26/24 12:10 Pre-Assessment Diagnosis/Proposed Procedure Planned Operative Procedure(s): DIAGNOSTIC LAPAROSCOPY POSS LYSIS OF ADHESIONS Anesthesia History Anesthesia History - employee relations manager: Anesthesia History - employee relations manager Hx Hospitalization No 06/19/24 09:02 Any Problems With Anesthesia No 06/19/24 09:02 Cholinesterase deficiency No 06/19/24 09:02 You/Your Family Experience No 06/19/24 09:02 fever (hyperthermia) with Relationship Recent Exposure to Contagious No 06/26/24 12:27 Disease Does patient have nerve No 06/19/24 09:02 stimulator Patient instructed to have device shut off --Does patient have Pacemaker No 06/26/24 12:27 or ICD? When Was Last Pacemaker Check QUESTION #4 FULL TEXT: You/Your Family Experience fever (hyperthermia) with Anesthesia Last Oral Intake Last Oral intake: Last Oral Intake NPO since 08:00 06/26/24 12:27 Meds taken in AM with sips of Yes 06/26/24 12:27 water? Meds patient instructed to take am of surgery Any additional information?: Yes NPO since: 08:00 (Patient had water at 8 AM.) Meds taken in AM with sips of water?: Yes PONV PONV - employee relations manager: PONV - employee relations manager Female Yes 06/19/24 09:02 HX of Motion Sickness Yes 06/19/24 09:02 HX of N/V After Surgery No 06/19/24 09:02 Non-Smoker Yes 06/19/24 09:02 Duration of Surgery greater Yes 06/19/24 09:02 than 60 minutes Number of Risk Factors 4 06/19/24 09:02 PONV Score Severe Risk 06/19/24 09:02 Height & Weight Height & Weight: Anesthesia: Height & Weight Height 5 ft 5 in 06/26/24 12:27 Weight: 58 kg 06/26/24 12:27 Body Mass Index (BMI) 21.2 06/26/24 12:27 Respiratory Assessment Respiratory Assessment - employee relations manager: Respiratory Tract Infection Hx - employee relations manager Hx Respiratory Tract Infection No 06/19/24 09:02 STOP Sleep Apnea STOP Sleep Apnea - employee relations manager: STOP Sleep Apnea - employee relations manager Hx Hypertension No 06/19/24 09:02 Hx Sleep Apnea No 06/19/24 09:02 CPAP BIPAP Do you snore loudly (louder No 06/19/24 09:02 than talking or can be heard Do you often feel tired/ No 06/19/24 09:02 fatigued/ sleepy during daytime? Has anyone observed you stop No 06/19/24 09:02 breathing during sleep? STOP Results Negative 06/19/24 09:02 QUESTION #5 FULL TEXT : Do you snore loudly (louder than talking or can be heard through closed doors)? Tobacco Use History Tobacco Use History - employee relations manager: Tobacco Use History - employee relations manager Tobacco Use Smoking Status Never smoker 06/19/24 09:02 Hx Tobacco Use No 06/19/24 09:02 Years Smoking Packs Smoked per Day Smoking Cessation Date was within the last 15 years Hx Smoking Cessation Date Hx Smoking Cessation Counseling Hematologic Medial History Hematologic Hx - employee relations manager: Hematologic Medical Hx - fingernail former Hx of Blood Transfusion No 06/19/24 09:02 Hx of Transfusion in last 3 No 06/19/24 09:02 Months Date of Last Transfusion (if within last 3 months) Ever experience any problems No 06/19/24 09:02 with transfusion(s)? Specify any problems Hx of Preganancy in last 3 No 06/19/24 09:02 Months Nurse Filling Out Transfusion DSCHRIBER 06/19/24 09:02 & Questions: Date: 06/19/24 06/19/24 09:02 Time: 09:03 06/19/24 09:02 Patient unable to answer at this time (ie. confused, unrespo /Reproduction History /Reproductive History - employee relations manager: /Reproductive Hx- employee relations manager Hx Now No 06/19/24 09:02 Gestational Age (in weeks): EDC: Hx Hx Para Hx Section SAB No 06/19/24 09:02 Active Medications Active Medications: Current Medications Generic Name Dose Route Start Last Admin Trade Name Freq PRN Reason Stop Dose Admin Sodium Chloride 1,000 mls @ 15 mls/hr 06/26/24 12:10 06/26/24 12:42 IV 07/02/24 01:29 15 mls/hr .Q48H SHERRY Administration Protocol PFS Medical History Depression Anxiety Thyroid disease Dietary restriction Wears glasses Non-smoker Monochorionic diamniotic twin gestation Infertility Abnormal glucose affecting Home Medications ?Medication ?Instructions ?Recorded ?Last Taken ?Type vitamins no.119-iron 1 tab PO DAILY Check with primary 05/05/21 06/18/21 08:00 History fumarate 29 mg-folic acid 1 mg doctor tablet Saccharomyces boulardii 250 mg 250 mg PO DAILY 02/03/22 Unknown History capsule (Daily Probiotic (S. boulardii)) cholecalciferol (vitamin D3) 50 50 mcg PO DAILY 02/03/22 Unknown History mcg (2,000 unit) capsule ascorbate calcium (vitamin C) 500 500 mg PO DAILY 08/05/22 Unknown History mg tablet magnesium citrate 100 mg tablet 100 mg PO DAILY 08/05/22 Unknown History levothyroxine 50 mcg capsule 50 mcg PO DAILY 03/07/23 06/26/24 07:00 History citalopram 10 mg tablet 10 mg PO QDAY #90 tabs 05/15/24 Unknown Rx citalopram 20 mg tablet 20 mg PO DAILY #90 TABLETS 05/15/24 Unknown Rx Allergy/AdvReac Type Severity Reaction Status Date / Time No Known Allergies Allergy Verified 06/26/24 12:23 Family History Father Cancer skin Sister Cancer hodgkins lymphoma 2010 Surgical History Status post dilation and curettage Status post Delivery by section History of gynecologic surgery History of wisdom tooth extraction, class II edentulism Social History Smoking Status: Never smoker alcohol intake: current details: social substance use type: does not use caffeine: Yes what type of physical activity do you participate in: walking and yoga frequency: 1-2 times per week seatbelt use: always do you feel safe at home: Yes additional social history: 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
[2024-06-26] MEDS: Methylene Blue 1% 100 MG/10 ML VIAL (15:03)
--- NOTE | 2024-06-26 15:10 | DCINST_ITS ---
Discharge Instructions Diet Discharge Diet: No restrictions DC O2, CPAP, BIPAP needs Home O2 Discharge instructions: No Dressing / Incision Discharge Activity: Return to Normal Activity, May Not Drive (for two weeks or while taking narcotic pain medications.), May Shower and May Take a Tub Bath (in 7 days) May resume sexual activity in: 1 week Weight Bearing Status: Full weight bearing Dressing / Incision Call your doctor if you observe: Using more than 1 pad per hour, Shortness of breath, Chest pain and Uncontrolled pain Suture Line Care: Avoid Pulling/Pushing and Avoid Pinching/Bending Remove Dressing in: 1 week (if present) Cleanse incision/area with: Soap & Water and Keep Dressing Clean & Dry Follow Up Care Please Follow Up With: Andree Castillo DO When: Call to make an appointment with your doctor for a follow up incision check in 1-2 weeks. Test Results: Test results from this visit will be discussed in further detail at your follow- up appointment, if applicable. Discharge Plan Admission Primary Reason for Your Visit: laparoscopy Attending Provider: Andree Castillo Primary Care Provider: Magalis Damico Consulting Providers: Angela Magallanes Instructions Print Language: Estonian Discharge Orders/Prescriptions Prescriptions: New oxycodone 5 mg capsule 5 mg PO Q6H PRN (Reason: pain) 3 Days Qty: 10 0RF Continued PNV 119-iron fum-folic acid 29 mg iron- 1 mg tablet 1 tab PO DAILY cholecalciferol (vitamin D3) 50 mcg (2,000 unit) capsule 50 mcg PO DAILY Saccharomyces boulardii [Daily Probiotic (S. boulardii)] 250 mg capsule 250 mg PO DAILY levothyroxine 50 mcg capsule 50 mcg PO DAILY ascorbate calcium (vitamin C) 500 mg tablet 500 mg PO DAILY magnesium citrate 100 mg tablet 100 mg PO DAILY citalopram 10 mg tablet 10 mg PO QDAY Qty: 90 4RF Rx Instructions: take once a day along with the 20 mg tab citalopram 20 mg tablet 20 mg PO DAILY Qty: 90 3RF Referrals / Follow Up: Magalis Damico MD [Primary Care Provider] - Disposition Disposition (needs filled in before D/C Order can be placed): Home, Self Care
--- NOTE | 2024-06-26 15:10 | HP.PCM_ITS ---
History and Physical Date of Admission: 06/26/24 Intake Vital Signs 05/15/2414:59 06/08/2416:04 06/08/2416:04 Height 5 ft 5 in 5 ft 5 in 5 ft 5 in Weight: 130 lb 2 oz BMI 21.6 BP 129/84 H Intake Visit Reasons: diag. lap possible lysis of adhesions Marketing Copywriter Required: No Is patient in pain?: No Allergies No Known Allergies Allergy (Verified 06/08/24 16:03) Medications ?Medication ?Instructions ?Recorded ?Confirmed ?Type vitamins no.119-iron 1 tab PO DAILY Check with primary 05/05/21 06/08/24 History fumarate 29 mg-folic acid 1 mg doctor tablet Saccharomyces boulardii 250 mg 250 mg PO BID 02/03/22 06/08/24 History capsule (Daily Probiotic (S. boulardii)) cholecalciferol (vitamin D3) 50 50 mcg PO DAILY 02/03/22 06/08/24 History mcg (2,000 unit) capsule ascorbate calcium (vitamin C) 500 500 mg PO DAILY 08/05/22 06/08/24 History mg tablet magnesium citrate 100 mg tablet 100 mg PO DAILY 08/05/22 06/08/24 History levothyroxine 50 mcg capsule 50 mcg PO DAILY 03/07/23 06/08/24 History citalopram 10 mg tablet 10 mg PO QDAY #90 tabs 05/15/24 06/08/24 Rx citalopram 20 mg tablet 20 mg PO DAILY #90 TABLETS 05/15/24 06/08/24 Rx Post menopausal: No Patient : No : No PFSH Medical History Wears contact lenses Wears glasses Non-smoker Monochorionic diamniotic twin gestation Infertility Thyroid disorder Abnormal glucose affecting Surgical History Status post dilation and curettage Status post Delivery by section History of gynecologic surgery History of wisdom tooth extraction, class II edentulism Family History Father Cancer skinSister Cancer hodgkins lymphoma 2010 Social History Smoking Status: Never smoker alcohol intake: current details: social substance use type: does not use caffeine: Yes what type of physical activity do you participate in: walking and yoga frequency: 1-2 times per week seatbelt use: always do you feel safe at home: Yes additional social history: 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 lap possible lysis of adhesions Details: SRINIVASA KNIGHT is a 34 year old who presents for a preop exam. She has tried multiple rounds of IVF, most recently in February and lost the embryo. 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 Faye is recommending a diagnostic laparoscopy due to symptoms of pelvic pain and cramping between cycles. She also is feeling more tearful lately and wonders if can have citalopram increased to 30 mg daily. History 3 Elective abortions Hx Para 1 Spontaneous abortions 2 Hx # Term Pregnancies Ectopic pregnancies Hx # Pregnancies Multiple births 1 # of living children 1 Past Pregnancies Del. Date Name GA/Weeks Outcome Route Bth Weight Infant Gen Labor Lgth Anesthesia Del Locatn Provider FOB 06/21/21 Aria (may) 34 live - 4lbs 1 0oz Female [facility] Dr. Duarte 06/21/21 [place] 34 live - 5lbs 3 oz [facility] Dr. Castillo Delivery Date: 06/21/21 Last Updated by: Magalis Noyola PPROM 34 weeks, mono di twins, stat LTCS len 6cm, ph 7.2 resuscitation, 2 days Delivery Date: 06/21/21 Last Updated by: Magalis Noyola PPROM 34 weeks, mono di twins, stat LTCS len baby A, 6cm, ph 7.2 ROS Const ROS Unobtainable: All systems reviewed & are unremarkable except as noted in H Resp Resp: Reports system reviewed and no additional complaints, except as documented; Denies cough GI GI: Reports as per HPI Psych Psych: Reports system reviewed and no additional complaints, except as documented Exam Const General: cooperative, healthy appearing, comfortable and no acute distress Resp Effort & Inspection: normal respiratory effort Skin General: no rashes or lesions noted Psych Appearance: grossly normal Speech and Movement: speech and movement normal Coding Level of Care Code Off vis,est,level 4 Diagnoses Pelvic pain R10.2 Infertility Assessment and Plan Assessment and Plan (1) Pelvic pain: Status: Acute (2) Infertility: Status: Acute Comment: HX IVF Plan After discussing the patient's diagnosis and treatment plan options, patient wishes to proceed with surgical management. I have discussed with the patient the risks, benefits, and alternatives of the procedure which include but are not limited to risks of anesthesia, bleeding, infection, possible damage to bowel, bladder, or surrounding vasculature which could lead to additional surgery to evaluate any complications. Patient agrees to procedure and wishes to proceed. ACOG/uptodate references given for additional information regarding procedure. plan for diagnostic laparoscopy, possible lysis of adhesions. Plan Details Goals & Barriers: Goals Decrease spasm Decrease pain
[2024-06-26] MEDS: Cefazolin 2 GM in Syringe IV (15:35)
[2024-06-26] MEDS: Bupivacaine 0.25% 30 ML Vial (15:58)
--- NOTE | 2024-06-26 16:00 | OP.PCM_ITS ---
Problems Associated Problem List Diagnoses (1) Pelvic pain: Multi Select Codes Urinary/Genital Urinary/Genital CPT Codes: 02277 Chromotubation and 01206 Laproscopic ablation endometriosis Operative Report (Standard) Operative Information Date of Procedure: 06/26/24 Pre-Operative Diagnosis: Pelvic pain and recurrent miscarriage, suspect possible endometriosis Post-Operative Diagnosis: Pelvic pain and recurrent miscarriage, suspect possible endometriosis Surgery/Procedure Performed: Diagnostic laparoscopy destruction of endometriosis and chromotubation of fallopian tubes crew leader: Yes Field Broomer: Harish Hogan Tasks completed by family practice physician assistant: Closing, Insert Trochanter, Hemostasis: Tie and Trocar Additional human resources office assistant?: No Type of Anesthesia: General RN Documented Start/Stop Times: Operation Date: 06/26/24 13:45 Case Time Into Pre-Op 06/26/24 12:08 Anesthesia Start 06/26/24 15:25 Into Room 06/26/24 15:25 Procedure Start 06/26/24 15:40 Procedure End 06/26/24 15:59 Anesthesia End 06/26/24 16:03 Out of Room 06/26/24 16:03 Into Recovery 06/26/24 16:07 Procedure Start Time: 15:40 Procedure Stop Time: 15:59 Select all DRAINS/GRAFTS/IMPLANTS that apply: None Estimated Blood Loss: 0 Fluids Replaced: 1000cc Specimen collected: No Description of surgery: Patient was taken in the operating room and was placed under general anesthesia was prepped and draped in normal sterile fashion in the dorsal lithotomy position. Bladder was drained of clear urine and SCDs were on preoperatively. A single toothed tenaculum was placed on the anterior lip the cervix and a uterine manipulator was inserted through the cervix and into the uterus. Attention was then paid to the abdominal portion of the procedure and the umbilicus was elevated with towel clamps and injected with Marcaine and after a 5 mm incision was made and a 5 mm laparoscope was inserted into the abdomen under direct visualization. The Abdomen was insufflated with CO2 gas and the patient was placed in trundelenburg position. A left lower quadrant 5 mm port was placed without difficulty. There were Powder burn grey noted in the cul-de-sac on the right and left sides. These were cauterized and destroyed using the monopolar cautery connected to laparoscopic scissors. Methylene blue was then attached to the uterine manipulator and injected into the uterus. Blue dye was seen flowing from both fallopian tubes, identifying bilateral tubal patency. Overall the uterus, fallopian tubes, ovaries, bowel and liver appeared normal without scaring of endometriosis. Surgical Findings: mild endometriosis in the cul-de-sac, patent fallopian tubes bilaterally. Complications Complications: No Admit VTE Documentation VTE Present on Admission: No VTE Mechan Device Prophylaxis: SCD's VTE Pharm Prophylaxis ordered?: No
--- NOTE | 2024-06-26 16:45 | PCM.POST.ANE ---
Anesthesia: Postop Eval I Current Vital Signs Temperature: 97.4 F Pulse Rate: 86 Blood Pressure: 101/65 Respiratory Rate: 14 Pulse Ox: 100 Oxygen Delivery Method: Room Air Assessment Airway patent: Yes Spontaneous unlabored respirations: Yes Mental status: Awake and Calm nausea: No Vomiting: No Anesthesia Complication: No Fluid Hydration Crystalloid volume administer (ml): 1,000 Total IV fluid infused: 1,000 Progress Note Anesthesia document: Postop Eval 1 completed: Yes
[2024-06-26] MEDS: Acetaminophen 500 MG Tablet 1000 MG PO (16:57)
--- NOTE | 2024-06-26 20:04 | POSTOPAN2_ITS ---
Anesthesia Postop Eval I Sum Postop Eval Completion status Anesthesia document: Postop Eval 1 completed: Yes Anesthesia Postop Eval I Summary Anesthesia Postop Eval I Summary: Anesthesia Postop Eval I: Assessment Summary Airway patent Yes 06/26/24 16:45 MOLECULAR [email or web address] Spontaneous unlabored Yes 06/26/24 16:45 MOLECULAR [email or web address].[email or web address] respirations Mental status Awake,Calm 06/26/24 16:45 MOLECULAR GENETICIST.[email or web address] nausea No 06/26/24 16:45 MOLECULAR GENETICIST.[email or web address] Vomiting No 06/26/24 16:45 MOLECULAR GENETICIST.[email or web address] Anesthesia Postop Eval I: Fluid Summary Crystalloid volume administer 1,000 06/26/24 16:45 MOLECULAR GENETICIST.[email or web address] (ml) Colloids volume administered ( ml) Blood Product volume administered (ml) Total IV fluid infused 1,000 06/26/24 16:45 MOLECULAR GENETICIST.[email or web address] Anesthesia Postop Eval I: Summary Notes Anesthesia Complication No 06/26/24 16:45 MOLECULAR [email or web address].[email or web address] Anesthesia Complication Comment: Post-operative progress note Anesthesia: Postop Eval II Evaluation Mental status: Awake Pain Level: 0 nausea: No Vomiting: No
--- NOTE | 2024-06-26 20:04 | PCM.POSTANE2 ---
Anesthesia Postop Eval I Sum Postop Eval Completion status Anesthesia document: Postop Eval 1 completed: Yes Anesthesia Postop Eval I Summary Anesthesia Postop Eval I Summary: Anesthesia Postop Eval I: Assessment Summary Airway patent Yes 06/26/24 16:45 DRUM DYEING MACHINE OPERATOR.[email or web address] Spontaneous unlabored Yes 06/26/24 16:45 DRUM DYEING MACHINE OPERATOR.[email or web address] respirations Mental status Awake,Calm 06/26/24 16:45 DRUM DYEING MACHINE OPERATOR.[email or web address] nausea No 06/26/24 16:45 DRUM DYEING MACHINE OPERATOR.[email or web address] Vomiting No 06/26/24 16:45 DRUM DYEING MACHINE OPERATOR.[email or web address] Anesthesia Postop Eval I: Fluid Summary Crystalloid volume administer 1,000 06/26/24 16:45 DRUM DYEING MACHINE OPERATOR.[email or web address] (ml) Colloids volume administered ( ml) Blood Product volume administered (ml) Total IV fluid infused 1,000 06/26/24 16:45 DRUM DYEING MACHINE OPERATOR.[email or web address] Anesthesia Postop Eval I: Summary Notes Anesthesia Complication No 06/26/24 16:45 DRUM DYEING MACHINE OPERATOR.[email or web address] Anesthesia Complication Comment: Post-operative progress note Anesthesia: Postop Eval II Evaluation Mental status: Awake Pain Level: 0 nausea: No Vomiting: No
== END 2024-06-26 17:40 | disposition home or self-care (01) ==
LOC: SDC 12:04 → AC 12:05
PROVIDERS: PCP Family Medicine; Referring Provider Obstetrics & Gynecology; Visit Provider Obstetrics & Gynecology
PROC: (CPT 49320; principal; 2024-06-26 13:30)
DX: N80.9 Endometriosis, unspecified (principal); R10.2 Pelvic and perineal pain; N97.9 Female infertility, unspecified; N96 Recurrent pregnancy loss; E07.9 Disorder of thyroid, unspecified; Z79.890 Hormone replacement therapy; Z79.899 Other long term (current) drug therapy
CPT/HCPCS: 58662; 00840; 36415; 81025; 84443; 85027; 86850; 86900; 86901; J2405

== ENCOUNTER → 2025-05-14 | Outpatient (CLI) | payer OTHER, SELFPAY ==
--- OUTSIDE RECORDS SUMMARY | 2025-05-14 06:05 | XMS RPT_ITS | CCD ---
Author Organization [facility] Care Team Providers Care Can Maker Name Role Phone ANGELA BRYANT Admitting ANGELA De La Torre Attending MAGALIS Villanueva Primary Care Unavailable SOLITARIO HARLEY Consulting Unavailable RAHEEM HIDALGO, SKI TOP TRIMMER Admitting Unavailable RAHEEM HIDALGO NP Attending Unavailable MAGALIS DAMICO Primary Care Unavailable Dr. Magalis Damico Primary Care Provider [phone] Dr. Magalis Damico Referring Provider [phone] Damian CANSECO, MAXWELL Meng Attending Provider [phone] Dr. Magalis Damico Primary Care Provider [phone] Dr. Magalis Damico Referring Provider [phone] Dr. Twyla Nichole Attending Provider [phone] Dr. Andree Turk Attending Provider [phone] Dr. Andree Turk Referring Provider [phone] Dr. Andree Turk Other Provider Dr. Magalis Damico Primary Care Provider [phone] Dr. Magalis Damico Referring Provider [phone] Dr. Anastasia Hartman Attending Provider [phone] Dr. Magalis Damico Primary Care Provider [phone] Dr. Magalis Damico Referring Provider [phone] Dr. Anastasia Hartman Attending Provider [phone] Dr. Twyla Nichole Attending Provider [phone] Dr. Magalis Damico Primary Care Provider Dr. Magalis Damico Referring Provider Dospierre, Dr. Oconnor Attending Provider [phone] Mookie OCASIO, Dr. Blancas Primary Care Provider Mookie OCASIO, Dr. Blancas Referring Provider [phone] Dossi DC, Dr. Oconnor Attending Provider [phone] Mookie OCASIO, Dr. Blancas Primary Care Provider Mookie OCASIO, Dr. Blancas Referring Provider [phone] Dossi DC, Dr. Oconnor Attending Provider [phone] Mookie OCASIO, Dr. Blancas Primary Care Provider Dr. Magalis Damico MD Referring Provider [phone] Dossi DC, Dr. Oconnor Attending Provider [phone] Mookie OCASIO, Dr. Blancas Primary Care Physician [phone] Mookie OCASIO, Dr. Blancas Referring Provider [phone] Dossi DC, Dr. Oconnor Attending Physician [phone] Magalis Damico Referring Unavailable Mookie Magalis Primary Care Unavailable Anastasia Hartman Attending Unavailable [facility], [place] Primary Care Unavailable Miedel, Magalis Referring Unavailable Andree Turk Attending Unavailabl e Andree Turk Attending Unavaildave e Angela Bryant Unavailable [facility], [place] Primary Care Unavailable Andree Turk Referring Unavailabl e Jovitaedel, [place] Primary Care Unavailable Mookie, Magalis Referring Unavailable Anastasia Hartman Attending Unavailable Mookie, [place] Primary Care Unavailable Mookie, Magalis Referring Unavailable Anastasia Hartman Attending Unavailable Tobi, [place] Primary Care Unavailable Mookie, [place] Referring Unavailable DosAnastasia jay Attending Unavailable Ksed, [place] Primary Care Unavailable Miedel, Magalis Referring Unavailable Dospierre, Anastasia Attending Unavailable Ksed, [place] Primary Care Unavailable Miedel, Magalis Referring Unavailable Dossi, Anastasia Attending Unavailable Mied, Magalis Primary Care Unavailable Miedel, Magalis Referring Unavailable Dossi, Anastasia Attending Unavailable Ksed, [place] Primary Care Unavailable Mied, Magalis Referring Unavailable DosAnastasia jay Attending Unavailable Mied, [place] Primary Care Unavailable Miedel, Magalis Referring Unavailable Dospierre, Anastasia Attending Unavailable Mied, [place] Primary Care Unavailable Dossi, Anastasia Attending Unavailable Mied, Magalis Referring Unavailable Miedel, [place] Primary Care Unavailable DosAnastasia jay Attending Unavailable Miedel, Magalis Referring Unavailable Miedel, Magalis Referring Unavailable Mied, [place] Primary Care Unavailable Andree Turk Attending UnavailAndree Michelle Attending Unavaildave e Angela Bryant Consulting Unavailable Andree Turk Referring Unavailabl e Miedel, [place] Primary Care Unavailable Andree uTrk Consulting Unavailabl e Miedel, Magalis Referring Unavailable Andree Turk Attending Unavailabl e Mied, [place] Primary Care Unavailable Ksed, Magalis Referring Unavailable Ksed, [place] Primary Care Unavailable Andree Turk Attending Unavailabl e Miedel, Magalis Referring Unavailable Ksed, [place] Primary Care Unavailable DosAnastasia jay Attending Unavailable Medications Current Medications Medication Drug Class(es) Dates Sig (Normalized) Sig (Original) alpha-tocopherol acetate 30 unt / ascorbic acid 100 mg / beta carotene 1000 unt / calcium carbonate 200 mg / calcium pantothenate 7 mg / cholecalciferol 400 unt / docusate sodium 25 mg / ferrous fumarate 29 mg / folic acid 1 mg / niacinamide 15 mg / pyridoxine hydrochloride 20 mg / riboflavin 3 mg / thiamine 3 mg / vitamin b12 0.012 mg / zinc oxide 20 mg oral tablet (5 sources) Vitamin B12, Vitamin D, Vitamin C Start: 05-05-2021 Pnv 119-Iron Fum-Folic Acid 29 mg iron- 1 mg tablet Active 1 {tbl} PO DAILY May 05, 2021 1:00am Check with primary doctor Complies with drug therapy calcium ascorbate 500 mg oral tablet (12 sources) Start: 08-05-2022 take 1 tablet by mouth once daily Ascorbate Calcium (Vitamin C) 500 mg tablet Active 500 mg PO DAILY August 05, 2022 1:00am Complies with drug therapy cholecalciferol 0.05 mg oral capsule (20 sources) Vitamin D Start: 02-03-2022 take 1 capsule by mouth once daily Cholecalciferol (Vitamin D3) 50 mcg (2,000 unit) capsule Active 50 ug PO DAILY February 03, 2022 12:00am Complies with drug therapy Start: 01-16-2021 End: 05-05-2021 take 1 capsule by mouth once daily Cholecalciferol (Vitamin D3) 50 mcg (2,000 unit) capsule Discontinued 50 ug PO DAILY January 16, 2021 12:00am May 05, 2021 2:38pm citalopram 20 mg oral tablet (20 sources) Serotonin Reuptake Inhibitor Start: 05-15-2024 take 2 tablets by mouth once daily Citalopram 10 mg tablet Active 10 mg PO daily 90 May 15, 2024 1:00am take once a day along with the 20 mg tab Complies with drug therapy Start: 06-24-2021 End: 05-15-2024 take 1 tablet by mouth once daily Citalopram 20 mg tablet Discontinued 20 mg PO DAILY 90 October 17, 2023 1:38pm May 15, 2024 4:33pm levothyroxine sodium 0.05 mg oral capsule (20 sources) l-Thyroxine Start: 03-07-2023 take 1 capsule by mouth once daily Levothyroxine 50 mcg capsule Active 50 ug PO DAILY March 07, 2023 12:00am Complies with drug therapy Start: 11-01-2022 End: 03-07-2023 Levothyroxine (Synthroid) 25 mcg tablet Discontinued 0 .ROUTE .COMPLEX 45 November 01, 2022 8:27am March 07, 2023 10:27am TAKE 1/2 TABLET DAILY Start: 06-18-2021 End: 11-01-2022 Levothyroxine (Synthroid) 25 mcg tablet Discontinued 12.5 ug PO DAILY 90 September 17, 2021 2:57pm November 01, 2022 8:28am Check with primary doctor Start: 01-16-2021 End: 06-18-2021 take 1 tablet by mouth once daily Levothyroxine (Synthroid) 25 mcg tablet Discontinued 25 ug PO DAILY 90 April 27, 2021 2:38pm June 18, 2021 12:16pm magnesium citrate 100 mg oral tablet (12 sources) Start: 08-05-2022 take 1 tablet by mouth once daily Magnesium Citrate 100 mg tablet Active 100 mg PO DAILY August 05, 2022 1:00am Complies with drug therapy Pnv 119-Iron Fum-Folic Acid (9 sources) Start: 05-05-2021 take 1 tablet by mouth once daily Pnv 119-Iron Fum-Folic Acid Active 1 TABLET PO DAILY May 05, 2021 12:00am Start: 05-05-2021 [facility] Pnv 119-Iron Fum-Folic Acid Active 1 TABLET PO DAILY May 05, 2021 1:00am saccharomyces boulardii 250 mg oral capsule (14 sources) Start: 02-03-2022 take 1 capsule by mouth once daily Saccharomyces Boulardii (Daily Probiotic (S. Boulardii)) 250 mg capsule Active 250 mg PO DAILY February 03, 2022 12:00am Complies with drug therapy Start: 02-03-2022 take 1 capsule by mo [facility] twice daily Saccharomyces Boulardii (Daily Probiotic (S. Boulardii)) 250 mg capsule Active 250 MG PO TWICE A DAY February 02, 2022 11:00pm Completed/Discontinued Medications Medication Drug Class(es) Dates Sig (Normalized) Sig (Original) acetaminophen 325 mg / HYDROcodone bitartrate 5 mg oral tablet (10 sources) Opioid Agonist Start: 11-26-2022 End: 12-09-2022 Hydrocodone-Acetamino phen 5-325 mg tablet Discontinued 1 {tbl} PO Q4H as needed for pain 5 3 0 November 26, 2022 December 09, 2022 12:52pm Status post dilation and curettage Other specified postprocedural states Start: 11-26-2022 End: 12-09-2022 take 1 tablet by mouth every four hours Hydrocodone-Acetaminophen Discontinued 1 TABLET PO Q4H 5 3 November 26, 2022 December 09, 2022 11:52am acetaminophen 325 mg / oxyCODONE hydrochloride 5 mg oral tablet (14 sources) Opioid Agonist Start: 06-21-2021 End: 07-03-2021 Oxycodone-Acetaminophen (Percocet) 5-325 mg tablet Discontinued 1 {tbl} PO Q4H as needed for pain (scale score 7-10) 28 7 0 June 21, 2021 July 03, 2021 4:49pm Delivery by section Supervision of high-risk Monochorionic diamniotic twin gestation Supervision of high risk , unspecified, unspecified trimester Twin , monochorionic/diamniotic, unspecified trimester ascorbic acid 500 mg oral capsule (14 sources) Vitamin C Start: 01-16-2021 End: 05-05-2021 Ascorbic Acid (Vitamin C) 50 0 mg capsule Discontinued mg PO January 16, 2021 12:00am May 05, 2021 2:38pm Start: 01-16-2021 End: 05-05-2021 Ascorbic Acid (Vitamin C) Di scontinued MG PO January 15, 2021 11:00pm May 05, 2021 1:38pm aspirin 81 mg delayed release oral tablet (14 sources) Platelet Aggregation Inhibitor, Nonsteroidal Anti-inflammatory Drug Start: 06-18-2021 End: 06-21-2021 take 1 tablet by mouth once daily Aspirin (Aspir-Low) 81 mg Tablet,Delayed Release (Dr/Ec) Discontinued 81 mg PO DAILY June 18, 2021 1:00am June 21, 2021 3:42am Check with primary doctor Desogestrel-Eth inyl Estradiol (7 sources) Progestin, Estrogen Start: 03-07-2023 End: 05-15-2024 take 0.15 tablet by mouth once daily Desogestrel-Ethinyl Estradiol (Apri) 0.15-0.03 mg tablet Discontinued 1 {tbl} PO DAILY March 07, 2023 12:00am May 15, 2024 4:22pm Start: 03-07-2023 Desogestrel-Et hinyl Estradiol (Apri) 0.15-0.03 mg tablet Active 1 TABLET PO DAILY March 06, 2023 11:00pm docusate sodium 100 mg oral capsule (14 sources) Start: 06-21-2021 End: 07-31-2021 take 1 capsule by mouth once daily Docusate Sodium (Colace) 100 mg capsule Discontinued 100 mg PO DAILY 14 14 0 June 21, 2021 1:00am July 31, 2021 3:57pm ferrous sulfate 325 mg oral tablet (14 sources) Start: 04-23-2021 End: 07-03-2021 take 1 tablet by mouth once daily Ferrous Sulfate 325 mg (65 mg iron) tablet Discontinued 325 mg PO DAILY April 23, 2021 12:00am July 03, 2021 4:49pm Check with primary doctor ibuprofen 800 mg oral tablet (20 sources) Nonsteroidal Anti-inflammatory Drug Start: 11-26-2022 End: 12-09-2022 take 1 tablet by mouth every eight hours as needed for pain Ibuprofen 800 mg tablet Discontinued 800 mg PO Q8H as needed for pain 30 0 November 26, 2022 12:00am December 09, 2022 12:52pm Start: 06-24-2021 End: 07-31-2021 take 1 tablet by mouth every six hours Ibuprofen 600 mg Tablet Discontinued 600 mg PO EVERY 6 HOURS 30 2 June 24, 2021 1:00am July 31, 2021 3:57pm Start: 06-21-2021 End: 07-03-2021 take 1 tablet by mouth every eight hours as needed for pain Ibuprofen 800 mg tablet Discontinued 800 mg PO Q8H as needed for pain 30 7 0 June 21, 2021 1:00am July 03, 2021 4:49pm Lactobacillus Combination No.4 (Probiotic) 3 billion cell capsule (14 sources) Start: 01-16-2021 End: 05-05-2021 take 3 capsules by mouth once daily Lactobacillus Combination No.4 (Probiotic) 3 billion cell capsule Discontinued 3000 NMA PO DAILY January 16, 2021 12:00am May 05, 2021 2:38pm administer with a meal Start: 01-16-2021 End: 05-05-2021 take 3 capsules by mouth once daily Lactobacillus Combination No.4 (Probiotic) 3 billion cell capsule Discontinued 3000 MMU CELLS PO DAILY January 15, 2021 11:00pm May 05, 2021 1:38pm administer with a meal Start: 01-16-2021 End: 05-05-2021 take 3 capsules by mouth once daily Lactobacillus Combination No.4 (Probiotic) 3 billion cell capsule Discontinued 3000 MMU CELLS PO DAILY January 16, 2021 12:00am May 05, 2021 2:38pm administer with a meal Multivitamin,Qe-Kqpw-Iesszbn s (Complete Multivitamin) tablet (14 sources) Start: 01-10-2019 End: 05-05-2021 Multivitamin,Kj-Hivs-Cxjluxi s (Complete Multivitamin) tablet Discontinued 1 {tbl} PO DAILY January 10, 2019 12:00am May 05, 2021 2:38pm Start: 01-10-2019 End: 05-05-2021 take 1 tablet by mouth once daily Multivitamin,My-Inlr-Tmgymazx (Complete Multivitamin) tablet Discontinued 1 TABLET PO DAILY January 09, 2019 11:00pm May 05, 2021 1:38pm Start: 01-10-2019 End: 05-05-2021 take 1 tablet by mouth once daily Multivitamin,Bl-Mipn-Hqukjwgl (Complete Multivitamin) tablet Discontinued 1 TABLET PO DAILY January 10, 2019 12:00am May 05, 2021 2:38pm [place]-3 Fatty Acids (Fish Oil Concentrate) 1,000 mg capsule (14 sources) Start: 01-16-2021 End: 05-05-2021 take 1 capsule by mouth once daily [place]-3 Fatty Acids (Fish Oil Concentrate) 1,000 mg capsule Discontinued 1000 mg PO DAILY January 16, 2021 12:00am May 05, 2021 2:38pm Start: 01-16-2021 End: 05-05-2021 take 1 capsule by mouth once daily [place]-3 Fatty Acids (Fish Oil Concentrate) 1,000 mg capsule Discontinued 1000 MG PO DAILY January 15, 2021 11:00pm May 05, 2021 1:38pm Start: 01-16-2021 End: 05-05-2021 take 1 capsule by mouth once daily [place]-3 Fatty Acids (Fish Oil Concentrate) 1,000 mg capsule Discontinued 1000 MG PO DAILY January 16, 2021 12:00am May 05, 2021 2:38pm oxyCODONE hydrochloride 5 mg oral capsule (19 sources) Opioid Agonist Start: 06-26-2024 End: 07-09-2024 take 1 capsule by mouth every six hours as needed for pain Oxycodone 5 mg capsule Discontinued 5 mg PO EVERY 6 HOURS as needed for pain 10 3 0 June 26, 2024 July 09, 2024 9:53am Status post laparoscopy Other specified postprocedural states Start: 06-24-2021 End: 07-03-2021 take 5-10 mg by mouth every four hours as needed for pain Oxycodone 5 mg Tablet Discontinued 5 - 10 mg PO EVERY 4 HOURS NEEDED as needed for Pain Score 4-10 20 7 0 June 24, 2021 July 03, 2021 4:49pm Delivery by section Supervision of high-risk Supervision of high risk , unspecified, unspecified trimester Problems Active Problems Problem Classification Problem Date Documented Da te Episodic/Chronic Administrative/social admission (20 sources) Child of patient ; Translations: [Disappearance and of family member] 06-23-2021 Episodic Comment on above: Gabriela, lost on day 2 of life. 34 week PPROM Contraceptive and procreative management (14 sources) Patient encounter status; Translations: [Encounter for assisted reproductive fertility procedure cycle] 01-16-2021 Episodic Diabetes mellitus without complication (20 sources) Abnormal glucose level; Translations: [Other abnormal glucose] 06-26-2021 Episodic Comment on above: 3 hr GTT nl 3hr gtt ordered Female infertility (14 sources) Primary female infertility; Translations: [Female infertility, unspecified] 01-16-2021 Chronic Comment on above: days 3 FSH, TSH, est radiol, prolactin, HSG day 7-10, pelvic ultrasound, semen analysis Mood disorders (20 sources) Depressive disorder; Translations: [Depression] Chronic Comment on above: celexa, counseling. 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 therapy; Translations: [OTH MAGNETIC PROSPECTING OPERATOR CURRENT DRUG THERAPY] Onset: 06-28-2019 Episodic Other bone disease and musculoskeletal deformities (1 source) Other idiopathic scoliosis, lumbar region; Translations: [Other idiopathic scoliosis, lumbar region] Onset: 04-29-2025 Chronic Other bone disease and musculoskeletal deformities (20 sources) Segmental and somatic dysfunction; Translations: [Segmental and somatic dysfunction of cervical region] 02-01-2023 Episodic Other bone disease and musculoskeletal deformities (10 sources) Segmental and somatic dysfunction of cervical region; Translations: [Nonallopathic lesions, cervical region] Onset: 04-29-2025 02-01-2023 Episodic Other bone disease and musculoskeletal deformities (10 sources) Segmental and somatic dysfunction of lumbar region; Translations: [Nonallopathic lesions, lumbar region] Onset: 04-29-2025 02-01-2023 Episodic Other bone disease and musculoskeletal deformities (10 sources) Segmental and somatic dysfunction of thoracic region; Translations: [Nonallopathic lesions, thoracic region] Onset: 04-29-2025 02-01-2023 Episodic Other complications of ; puerperium affecting management of mother (14 sources) Deliveries by ; Translations: [Delivery by section] 02-08-2022 Episodic Other complications of (20 sources) High risk ; Translations: [Supervision of high risk , unspecified, unspecified trimester] 06-26-2021 Episodic Comment on above: PRR MAGDALENA 07/29/21 identical girl/girl surprise Rachid US every 2 wk, anato my 18 wks, nl echo at 22wks, growth every 4 wks. wkly BPP after 32 wks. wkly NST @ 32 weeks all done at [facility] Other complications of (10 sources) Missed miscarriage; Translations: [Missed ] 11-25-2022 Episodic Comment on above: suction dilation and curettage Other complications of (10 sources) Multigravida of advanced maternal age; Translations: [Supervision of elderly multigravida, first trimester] 11-25-2022 Episodic Comment on above: Aria (may), Marisa ry Spouse: Rachid Other complications of (8 sources) Missed ; Translations: [Missed ] 11-25-2022 Episodic Other complications of (6 sources) Supervision of elderly multigravida, first trimester; Translations: [Supervision of high-risk with elderly multigravida] 11-25-2022 Episodic Other female genital disorders (2 sources) Polyp of corpus uteri; Translations: [POLYP OF CORPUS UTERI] Onset: 06-28-2019 Episodic Other nutritional; endocrine; and metabolic disorders (14 sources) Long chain acyl-CoA dehydrogenase deficiency; 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 neg urine culture anatomy reviewed. embryo transfer spli t girls, seeing MFM fo r monitoring. Anatomy US normal; wkly bpp with mfm after 32 weeks Polyhydramnios and other problems of amniotic cavity (14 sources) Premature rupture of membranes - delivered; Translations: [ premature rupture of membranes, unspecified as to length of time between rupture and onset of labor, unspecified trimester] 06-26-2021 Episodic Residual codes; unclassified (6 sources) History of uterine scar from previous surgery; Translations: [Other postprocedural status] 11-25-2022 Episodic Residual codes; unclassified (5 sources) Infertile 02-03-2022 Episodic Comment on above: HX IVF Residual codes; unclassified (5 sources) History of laparoscopy; Translations: [Other specified postprocedural states] 06-26-2024 Episodic Thyroid disorders (1 source) Hypothyroidism, unspecified; Translations: [HYPOTHYROIDISM UNSPECIFIED] Onset: 06-28-2019 Chronic Unclassified (19 sources) Infertile; Translations: [Infertility] Past or Other Problems Problem Classification Problem Date Documented Date Episodic/Chronic Abdominal pain (6 sources) Pain in pelvis; Translations: [Pelvic and perineal pain] Onset: 07-16-2024 06-08-2024 Episodic Residual codes; unclassified (1 source) Other specified postprocedural states; Translations: [Other specified postprocedural states] Onset: 07-16-2024 Episodic Spondylosis; intervertebral disc disorders; other back problems (20 sources) Neck pain; Translations: [Cervicalgia] Onset: 08-21-2024 02-01-2023 Episodic Unclassified (9 sources) bradycardia; Translations: [ bradycardia during labor] 06-26-2021 Results Test Name Value Interpretation Reference Range Facility Chiropractic Reporton 2024 Chiropractic Report 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 Accompanied by: Self Is patient in pain?: No Allergies No Known Allergies Allergy (Verified 04/29/25 16:14) PFSH Medical History Depression Anxiety Thyroid disease Dietary restriction Wears glasses Non-smoker Monochorionic diamniotic twin gestation Infertility Abnormal glucose affecting Surgical History H/O laparoscopy Status post dilation and curettage Status post Delivery by section History of gynecologic surgery History of wisdom tooth extraction, class II edentulism Family History Father Cancer skin Sister Cancer hodgkins lymphoma 2010 Social History Smoking Status: Never smoker alcohol intake: current details: social substance use type: does not use caffeine: Yes what type of physical activity do you participate in: walking and yoga frequency: 1-2 times per week seatbelt use: always do you feel safe at home: Yes additional social history: 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 Pt. advises her last visit was helpful and she has been feeling pretty good recently. Reports neck and low back tightness. She states her stiffness is equal bilaterally. She denies DIAZ's or limited ROM in her neck. 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 She denies new injury, numbness, tingling or radiculopathy. She continues to treat pain with heat, yoga and stretching at home that is helpful. Pt. reports chiropractic adjustments are effective in relieving her discomfort but it gradually returns. Location: neck/back Duration: frequent Aggravating or associated factors: twisting, ADLs, morning Relieving factors: chiro Pain Quality: aching and dull Exam Musc General: Yes normal posture, normal gait, muscle weakness, joint tenderness and decreased range of motion Cervical Spine: Yes loss of normal cervical lordosis, Yes cervical muscular tenderness bilateral diffuse , Yes cervical spasm right upper intrinsics, left greater than right lower trapezius and paracervical muscles and Yes misalignment misalignment: C1, C2, C6 and C7 Thoracic/Lumber: Yes thoracic and lumbar spine normal to inspection, Yes paraspinal tenderness bilaterally in the upper thoracic, in the mid thoracic, in the mid lumbar and in the lower lumbar, Yes scoliosis (R lumbar curve), Yes thoraco-lumbar spasm bilaterally (lumbar paraspinal) in the mid lumbar and in the lower lumbar and on the left greater than right (trap, levator) and Yes misalignment T1, T2, T7, T8, T9, T10, L3, L4 and L5 Office Procedures Procedures - Chiropractic Procedures Manipulation: Cervical C2 and C7, Lumbar L3 and L5 and Thoracic T2 and T7 Manipulation: 3-4 regions Traction, Mechanical: Yes Hot and/or cold packs: Yes Patient Response: positive Assessment and Plan Assessment and Plan (1) Segmental and somatic dysfunction of cervical region: Status: Acute (2) Segmental and somatic dysfunction of thoracic region: Status: Acute (3) Segmental and somatic dysfunction of lumbar region: Status: Acute (4) Scoliosis of lumbar spine: Status: Chronic Qualifiers: Idiopathic scoliosis type: other Scoliosis type: idiopathic Qualified Code(s): M41.26 - Other idiopathic scoliosis, lumbar region Comment: dextroscoliosis-lumbar Orders: Orders Chiropractic Treatments Today M41.26 - Other idiopathic scoliosis, lumbar region, M99.01 - Segmental and somatic dysfunction of cervical region, M99.02 - Segmental and somatic dysfunction of thoracic region, M99.03 - Segmental and somatic dysfunction of lumbar region Plan Patient was treated without incident. Continue care as needed. Plan Details Goals Barriers: Goals Decrease spasm Decrease pain Improve ROM Follow Up: PRN Coding Level of Care Code No Charge Diagnoses Segmental and somatic dysfunction of cervical region M99.01 Segmental and somatic dysfunction of thoracic r (more content not included)... Normal [facility] Chiropractic Reporton 2024 Chiropractic Report [facility] [address] [place] [id number] OFFICE VISIT Date of Service: 03/26/25 MR#: [id number] Acct: [id number] Name: RACHEAL MERRILL Rep #: [id number] : 1990 Provider: RAS Lam Age/Sex: 34/F Location: [facility] Status: Signed Intake Vital Signs 07/09/24 08:49 Height 5 ft 5 in Intake Visit Reasons: Back pain Chief Complaint: neck and low back Allergies No Known Allergies Allergy (Verified 03/26/25 16:21) Medications ???Medication ???Instructions ???Recorded ???Confirmed ???Type vitamins no.119-iron 1 tab PO DAILY Check with primary 05/05/21 03/26/25 History fumarate 29 mg-folic acid 1 mg doctor tablet Saccharomyces boulardii 250 mg 250 mg PO DAILY 02/03/22 03/26/25 History capsule (Daily Probiotic (S. boulardii)) cholecalciferol (vitamin D3) 50 50 mcg PO DAILY 02/03/22 03/26/25 History mcg (2,000 unit) capsule ascorbate calcium (vitamin C) 500 500 mg PO DAILY 08/05/22 03/26/25 History mg tablet magnesium citrate 100 mg tablet 100 mg PO DAILY 08/05/22 03/26/25 History levothyroxine 50 mcg capsule 50 mcg PO DAILY 03/07/23 03/26/25 History citalopram 10 mg tablet 10 mg PO QDAY #90 tabs 05/15/24 Rx citalopram 20 mg tablet 20 mg PO DAILY #90 TABLETS 4 03/26/25 Rx PFSH Medical History Depression Anxiety Thyroid disease Dietary restriction Wears glasses Non-smoker Monochorionic diamniotic twin gestation Infertility Abnormal glucose affecting Surgical History H/O laparoscopy Status post dilation and curettage Status post Delivery by section History of gynecologic surgery History of wisdom tooth extraction, class II edentulism Family History Father Cancer skin Sister Cancer hodgkins lymphoma 2010 Social History Smoking Status: Never smoker alcohol intake: current details: social substance use type: does not use caffeine: Yes what type of physical activity do you participate in: walking and yoga frequency: 1-2 times per week seatbelt use: always do you feel safe at home: Yes additional social history: Rachid- 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 Pt. advises her last visit was helpful and she has been feeling pretty good recently. She is experiencing mild neck tension and low back soreness. She states her stiffness/soreness is equal bilaterally. She denies DIAZ's or limited ROM in her neck. She went on a trip this past weekend and thought she would be really tight from traveling but she isn't too bad. 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 She stretches and walks often which is helpful in reducing her discomfort. She denies new injury, numbness, tingling or radiculopathy. She continues to treat pain with heat, yoga and stretching at home. Pt. reports chiropractic adjustments are effective in relieving her discomfort but it gradually returns. Location: neck/back Duration: frequent Aggravating or associated factors: twisting, ADLs, morning Relieving factors: chiro Pain Quality: aching and dull Exam Musc General: Yes normal posture, normal gait, muscle weakness, joint tenderness and decreased range of motion Cervical Spine: Yes loss of normal cervical lordosis, Yes cervical muscular tenderness bilateral diffuse , Yes cervical spasm right upper intrinsics, left greater than right lower trapezius and paracervical muscles and Yes misalignment misalignment: C1, C2, C6 and C7 Thoracic/Lumber: Yes thoracic and lumbar spine normal to inspection, Yes paraspinal tenderness bilaterally in the upper thoracic, in the mid thoracic, in the mid lumbar and in the lower lumbar, Yes scoliosis (R lumbar curve), Yes thoraco-lumbar spasm bilaterally (lumbar paraspinal) in the mid lumbar and in the lower lumbar and on the left greater than right (trap, levator) and Yes misalignment T1, T2, T7, T8, T9, T10, L3, L4 and L5 Office Procedures Procedures - Chiropractic Procedures Manipulation: Cervical C2 and C7, Lumbar L3 and L5 and Thoracic T2 and T7 Manipulation: 3-4 regions Traction, Mechanical: Yes Patient Response: positive Assessment and Plan Assessment and Plan (1) Segmental and somatic dysfunction of cervical region: Status: Acute (2) Segmental and somatic dysfunction of thoracic region: Status: Acute (3) S (more content not included)... Normal [facility] Chiropractic Reporton 2024 Chiropractic Report [facility] [address] [place] [address] OFFICE VISIT Date of Service: 02/19/25 MR#: [id number] Acct: [id number] Name: RACHEAL MERRILL Rep #: [id number] : 1990 Provider: RAS Lam Age/Sex: 34/F Location: [facility] Status: Signed Intake Vital Signs 07/09/24 08:49 Height 5 ft 5 in Intake Visit Reasons: Back pain Chief Complaint: neck and low back Allergies No Known Allergies Allergy (Verified 02/19/25 16:27) Medications ???Medication ???Instructions ???Recorded ???Confirmed ???Type vitamins no.119-iron 1 tab PO DAILY Check with primary 05/05/21 02/19/25 History fumarate 29 mg-folic acid 1 mg doctor tablet Saccharomyces boulardii 250 mg 250 mg PO DAILY 02/03/22 02/19/25 History capsule (Daily Probiotic (S. boulardii)) cholecalciferol (vitamin D3) 50 50 mcg PO DAILY 02/03/22 02/19/25 History mcg (2,000 unit) capsule ascorbate calcium (vitamin C) 500 500 mg PO DAILY 08/05/22 02/19/25 History mg tablet magnesium citrate 100 mg tablet 100 mg PO DAILY 08/05/22 02/19/25 History levothyroxine 50 mcg capsule 50 mcg PO DAILY 03/07/23 02/19/25 History citalopram 10 mg tablet 10 mg PO QDAY #90 tabs 05/15/24 Rx citalopram 20 mg tablet 20 mg PO DAILY #90 TABLETS 4 02/19/25 Rx PFSH Medical History Depression Anxiety Thyroid disease Dietary restriction Wears glasses Non-smoker Monochorionic diamniotic twin gestation Infertility Abnormal glucose affecting Surgical History H/O laparoscopy Status post dilation and curettage Status post Delivery by section History of gynecologic surgery History of wisdom tooth extraction, class II edentulism Family History Father Cancer skin Sister Cancer hodgkins lymphoma 2010 Social History Smoking Status: Never smoker alcohol intake: current details: social substance use type: does not use caffeine: Yes what type of physical activity do you participate in: walking and yoga frequency: 1-2 times per week seatbelt use: always do you feel safe at home: Yes additional social history: Rachid- 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 Pt .advises she is experiencing neck tension and low back soreness. She states her stiffness/soreness is equal bilaterally. She also c/o limited ROM in her neck. 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 She states she has been under stress and hunches over often to talk to/help her young students. She stretches and walks often which is helpful in reducing her discomfort. She denies new injury, numbness, tingling or radiculopathy. She continues to treat pain with heat, yoga and stretching at home. Pt. reports chiropractic adjustments are effective in relieving her discomfort but it gradually returns. Location: neck/back Duration: frequent Aggravating or associated factors: twisting, ADLs, morning Relieving factors: chiro Pain Quality: aching and dull Exam Musc General: Yes normal posture, normal gait, muscle weakness, joint tenderness and decreased range of motion Cervical Spine: Yes loss of normal cervical lordosis, Yes cervical muscular tenderness bilateral diffuse , Yes cervical spasm right upper intrinsics, left greater than right lower trapezius and paracervical muscles and Yes misalignment misalignment: C1, C2, C6 and C7 Thoracic/Lumber: Yes thoracic and lumbar spine normal to inspection, Yes paraspinal tenderness bilaterally in the upper thoracic, in the mid thoracic, in the mid lumbar and in the lower lumbar, Yes scoliosis (R lumbar curve), Yes thoraco-lumbar spasm bilaterally (lumbar paraspinal) in the mid lumbar and in the lower lumbar and on the left greater than right (trap, levator) and Yes misalignment T1, T2, T7, T8, T9, T10, L3, L4 and L5 Office Procedures Procedures - Chiropractic Procedures Manipulation: Cervical C2 and C7, Lumbar L3 and L5 and Thoracic T2 and T7 Manipulation: 3-4 regions Traction, Mechanical: Yes Patient Response: positive Assessment and Plan Assessment and Plan (1) Segmental and somatic dysfunction of cervical region: Status: Acute (2) Segmental and somatic dysfunction of thoracic region: Status: Acute (3) Segmental and somatic dysfunction of lumbar region: Status: Acute (4) Scoliosis of lumbar spine: Status: Chronic Qualifiers: Idiopathic scoliosis type: other Scoliosis ty (more content not included)... Normal [facility] Chiropractic Reporton 2024 Chiropractic Report [facility] [address] [place] [id number] OFFICE VISIT Date of Service: 01/22/25 MR#: [id number] Acct: [id number] Name: RACHEAL MERRILL Rep #: [id number] : 1990 Provider: RAS Lam Age/Sex: 34/F Location: [facility] Status: Signed Intake Vital Signs 07/09/24 08:49 Height 5 ft 5 in Intake Visit Reasons: Back pain Chief Complaint: neck and low back Allergies No Known Allergies Allergy (Verified 01/22/25 08:35) Medications ???Medication ???Instructions ???Recorded ???Confirmed ???Type vitamins no.119-iron 1 tab PO DAILY Check with primary 05/05/21 01/22/25 History fumarate 29 mg-folic acid 1 mg doctor tablet Saccharomyces boulardii 250 mg 250 mg PO DAILY 02/03/22 01/22/25 History capsule (Daily Probiotic (S. boulardii)) cholecalciferol (vitamin D3) 50 50 mcg PO DAILY 02/03/22 01/22/25 History mcg (2,000 unit) capsule ascorbate calcium (vitamin C) 500 500 mg PO DAILY 08/05/22 01/22/25 History mg tablet magnesium citrate 100 mg tablet 100 mg PO DAILY 08/05/22 01/22/25 History levothyroxine 50 mcg capsule 50 mcg PO DAILY 03/07/23 01/22/25 History citalopram 10 mg tablet 10 mg PO QDAY #90 tabs 05/15/24 Rx citalopram 20 mg tablet 20 mg PO DAILY #90 TABLETS 4 01/22/25 Rx PFSH Medical History Depression Anxiety Thyroid disease Dietary restriction Wears glasses Non-smoker Monochorionic diamniotic twin gestation Infertility Abnormal glucose affecting Surgical History H/O laparoscopy Status post dilation and curettage Status post Delivery by section History of gynecologic surgery History of wisdom tooth extraction, class II edentulism Family History Father Cancer skin Sister Cancer hodgkins lymphoma 2010 Social History Smoking Status: Never smoker alcohol intake: current details: social substance use type: does not use caffeine: Yes what type of physical activity do you participate in: walking and yoga frequency: 1-2 times per week seatbelt use: always do you feel safe at home: Yes 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 Pt.advises she is experiencing neck tension and low back soreness. She c/o generalized back discomfort and feels like it's time for an adjustment.She stretches and walks often which is helpful in reducing her pain. She denies new injury, numbness, tingling or radiculopathy. She continues to treat pain with heat, yoga and stretching at home. Pt. reports chiropractic adjustments are effective in relieving her pain and discomfort but it gradually returns. Location: neck/back Duration: frequent Aggravating or associated factors: twisting, ADLs, morning Relieving factors: chiro Pain Quality: aching and dull Exam Musc General: Yes normal posture, normal gait, muscle weakness, joint tenderness and decreased range of motion Cervical Spine: Yes loss of normal cervical lordosis, Yes cervical muscular tenderness bilateral diffuse , Yes cervical spasm right upper intrinsics, left greater than right lower trapezius and paracervical muscles and Yes misalignment misalignment: C1, C2, C6 and C7 Thoracic/Lumber: Yes thoracic and lumbar spine normal to inspection, Yes paraspinal tenderness bilaterally in the upper thoracic, in the mid thoracic, in the mid lumbar and in the lower lumbar, Yes scoliosis (R lumbar curve), Yes thoraco-lumbar spasm bilaterally (lumbar paraspinal) in the mid lumbar and in the lower lumbar and on the left greater than right (trap, levator) and Yes misalignment T1, T2, T7, T8, T9, T10, L3, L4 and L5 Office Procedures Procedures - Chiropractic Procedures Manipulation: Cervical C2 and C7, Lumbar L3 and L5 and Thoracic T2 and T7 Manipulation: 3-4 regions Traction, Mechanical: Yes Patient Response: positive Assessment and Plan Assessment and Plan (1) Segmental and somatic dysfunction of cervical region: Status: Acute (2) Segmental and somatic dysfunction of thoracic region: Status: Acute (3) Segmental and somatic dysfunction of lumbar region: Status: Acute (4) Scoliosis of lumbar spine: Status: Chronic Qualifiers: Scoliosis type: idiopathic Idiopathic scoliosis type: other Qualified Code(s): M41.26 - Other idiopathic scoliosis, lumbar region Comment: dextroscoliosis-lumbar Orders: Orders Chiropractic Alex (more content not included)... Normal [facility] Chiropractic Reporton 2024 Chiropractic Report [facility] [address] [place] [address] OFFICE VISIT Date of Service: 12/25/24 MR#: [id number] Acct: [id number] Name: RACHEAL MERRILL Rep #: [id number] : 1990 Provider: RAS Lam Age/Sex: 34/F Location: [facility] Status: Signed Intake Vital Signs 07/09/24 08:49 Height 5 ft 5 in Intake Visit Reasons: Back pain Chief Complaint: neck and low back Allergies No Known Allergies Allergy (Verified 11/27/24 14:32) [facility] Medical History Depression Anxiety Thyroid disease Dietary restriction Wears glasses Non-smoker Monochorionic diamniotic twin gestation Infertility Abnormal glucose affecting Surgical History H/O laparoscopy Status post dilation and curettage Status post Delivery by section History of gynecologic surgery History of wisdom tooth extraction, class II edentulism Family History Father Cancer skin Sister Cancer hodgkins lymphoma 2010 Social History Smoking Status: Never smoker alcohol intake: current details: social substance use type: does not use caffeine: Yes what type of physical activity do you participate in: walking and yoga frequency: 1-2 times per week seatbelt use: always do you feel safe at home: Yes 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 Pt.advises she just returned from vacation and is experiencing neck tension and low back soreness. She had a very long car ride and had slept in a different bed which has caused her generalized back discomfort. She stretches and walks often which is helpful in reducing her pain. She denies new injury, numbness, tingling or radiculopathy. She continues to treat pain with heat, yoga and stretching at home. Pt. reports chiropractic adjustments are effective in relieving her pain and discomfort but it gradually returns. Location: neck/back Duration: intermittent Aggravating or associated factors: twisting, ADLs, morning Relieving factors: chiro Pain Quality: aching and dull Exam Musc General: Yes normal posture, normal gait, muscle weakness, joint tenderness and decreased range of motion Cervical Spine: Yes loss of normal cervical lordosis, Yes cervical muscular tenderness bilateral diffuse , Yes cervical spasm right upper intrinsics, left greater than right lower trapezius and paracervical muscles and Yes misalignment misalignment: C1, C2, C6 and C7 Thoracic/Lumber: Yes thoracic and lumbar spine normal to inspection, Yes paraspinal tenderness bilaterally in the upper thoracic, in the mid thoracic, in the mid lumbar and in the lower lumbar, Yes scoliosis (R lumbar curve), Yes thoraco-lumbar spasm bilaterally (lumbar paraspinal) in the mid lumbar and in the lower lumbar and on the left greater than right (trap, levator) and Yes misalignment T1, T2, T7, T8, T9, T10, L3, L4 and L5 Office Procedures Procedures - Chiropractic Procedures Manipulation: Cervical C2 and C7, Lumbar L3 and L5 and Thoracic T2 and T7 Manipulation: 3-4 regions Traction, Mechanical: Yes Patient Response: positive Assessment and Plan Assessment and Plan (1) Segmental and somatic dysfunction of cervical region: Status: Acute (2) Segmental and somatic dysfunction of thoracic region: Status: Acute (3) Segmental and somatic dysfunction of lumbar region: Status: Acute (4) Scoliosis of lumbar spine: Status: Chronic Qualifiers: Scoliosis type: idiopathic Idiopathic scoliosis type: other Qualified Code(s): M41.26 - Other idiopathic scoliosis, lumbar region Comment: dextroscoliosis-lumbar Orders: Orders Chiropractic Treatments Today M41.26 - Other idiopathic scoliosis, lumbar region, M99.01 - Segmental and somatic dysfunction of cervical region, M99.02 - Segmental and somatic dysfunction of thoracic region, M99.03 - Segmental and somatic dysfunction of lumbar region Plan Patient was treated without incident. Continue care as needed. Plan Details Goals Barriers: Goals Decrease spasm Decrease pain Improve ROM Follow Up: PRN Coding Level of Care Code No Charge Diagnoses Segmental and somatic dysfunction of cervical region M99.01 Segmental and somatic dysfunction of thoracic region M99.02 Segmental and somatic dysfunction of lumbar region M99.03 Other idiopathic scoliosis, lumbar region M41.26 Scoliosis type: idiopathic Idiopathic scoliosis type: other CPT Codes (more content not included)... Normal [facility] Chiropractic Reporton 2024 Chiropractic Report [facility]ic [facility] [place] [address] OFFICE VISIT Date of Service: 11/27/24 MR#: [id number] Acct: [id number] Name: RACHEAL MERRILL Rep #: [id number] : 1990 Provider: RAS Oconnor Do ssi Age/Sex: 34/F Location: [facility] Status: Signed Intake Vital Signs 07/09/24 08:49 Height 5 ft 5 in Intake Visit Reasons: Back pain Chief Complaint: neck and low back Allergies No Known Allergies Allergy (Verified 11/27/24 14:32) Medications ???Medication ???Instructions ???Recorded ???Confirmed ???Type vitamins no.119-iron 1 tab PO DAILY Check with primary 05/05/21 11/27/24 History fumarate 29 mg-folic acid 1 mg doctor tablet Saccharomyces boulardii 250 mg 250 mg PO DAILY 02/03/22 11/27/24 History capsule (Daily Probiotic (S. boulardii)) cholecalciferol (vitamin D3) 50 50 mcg PO DAILY 02/03/22 11/27/24 History mcg (2,000 unit) capsule ascorbate calcium (vitamin C) 500 500 mg PO DAILY 08/05/22 11/27/24 History mg tablet magnesium citrate 100 mg tablet 100 mg PO DAILY 08/05/22 11/27/24 History levothyroxine 50 mcg capsule 50 mcg PO DAILY 03/07/23 11/27/24 History citalopram 10 mg tablet 10 mg PO QDAY #90 tabs 05/15/24 Rx citalopram 20 mg tablet 20 mg PO DAILY #90 TABLETS 4 11/27/24 Rx PFSH Medical History Depression Anxiety Thyroid disease Dietary restriction Wears glasses Non-smoker Monochorionic diamniotic twin gestation Infertility Abnormal glucose affecting Surgical History H/O laparoscopy Status post dilation and curettage Status post Delivery by section History of gynecologic surgery History of wisdom tooth extraction, class II edentulism Family History Father Cancer skin Sister Cancer hodgkins lymphoma 2011 Social History Smoking Status: Never smoker alcohol intake: current details: social substance use type: does not use caffeine: Yes what type of physical activity do you participate in: walking and yoga frequency: 1-2 times per week seatbelt use: always do you feel safe at home: Yes additional social history: Rachid- [employer]lawn care 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 Pt.advises she can tell that she is due for an adjustment. She complains of her neck being sore and feels like she has decreased ROM that is worse on the right side. She states her neck has been very tight. She states her low back has been sore lately. She stretches and walks often which is helpful in reducing her pain. 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 School recently got out of the summer and she has been doing a lot more packing and moving in her classroom in which she thinks made her more sore and tight. She denies new injury, numbness, tingling or radiculopathy. She continues to treat pain with heat, yoga and stretching at home. Pt. reports chiropractic adjustments are effective in relieving her pain and discomfort but it gradually returns. Location: neck/back Duration: intermittent Aggravating or associated factors: twisting, ADLs, morning Relieving factors: chiro Pain Quality: aching and dull Exam Musc General: Yes normal posture, normal gait, muscle weakness, joint tenderness and decreased range of motion Cervical Spine: Yes loss of normal cervical lordosis, Yes cervical muscular tenderness bilateral diffuse , Yes cervical spasm right upper intrinsics, left greater than right lower trapezius and paracervical muscles and Yes misalignment misalignment: C1, C2, C6 and C7 Thoracic/Lumber: Yes thoracic and lumbar spine normal to inspection, Yes paraspinal tenderness bilaterally in the upper thoracic, in the mid thoracic, in the mid lumbar and in the lower lumbar, Yes scoliosis (R lumbar curve), Yes thoraco-lumbar spasm bilaterally (lumbar paraspinal) in the mid lumbar and in the lower lumbar and on the left greater than right (trap, levator) and Yes misalignment T1, T2, T7, T8, T9, T10, L3, L4 and L5 Office Procedures Procedures - Chiropractic Procedures Manipulation: Cervical C2 and C7, Lumbar L3 and L5 and Thoracic T2 and T7 Manipulation: 3-4 regions Traction, Mechanical: Yes Patient Response: positive Assessment and Plan Assessment and Plan (1) Back pain: Qualifiers: Back pain location: low back pain Chronicity: acute Back pain laterality: bilateral Sciatica presence: without sciatica (more content not included)... Normal [facility] Chiropractic Reporton 2024 Chiropractic Report [facility] [address] [place] [address] OFFICE VISIT Date of Service: 10/30/24 MR#: [id number] Acct: [id number] Name: RACHEAL MERRILL CHRIS Rep #: [id number] : 1990 Provider: RAS Lam Age/Sex: 34/F Location: [facility] Status: Signed Intake Vital Signs 07/09/24 08:49 Height 5 ft 5 in Weight: 130 lb 4 oz BMI 21.7 BP 124/74 H Intake Visit Reasons: Back pain Chief Complaint: neck and low back Allergies No Known Allergies Allergy (Verified 10/30/24 16:31) Medications ???Medication ???Instructions ???Recorded ???Confirmed ???Type vitamins no.119-iron 1 tab PO DAILY Check with primary 05/05/21 10/30/24 History fumarate 29 mg-folic acid 1 mg doctor tablet Saccharomyces boulardii 250 mg 250 mg PO DAILY 02/03/22 10/30/24 History capsule (Daily Probiotic (S. boulardii)) cholecalciferol (vitamin D3) 50 50 mcg PO DAILY 02/03/22 10/30/24 History mcg (2,000 unit) capsule ascorbate calcium (vitamin C) 500 500 mg PO DAILY 08/05/22 10/30/24 History mg tablet magnesium citrate 100 mg tablet 100 mg PO DAILY 08/05/22 10/30/24 History levothyroxine 50 mcg capsule 50 mcg PO DAILY 03/07/23 10/30/24 History citalopram 10 mg tablet 10 mg PO QDAY #90 tabs 05/15/24 Rx citalopram 20 mg tablet 20 mg PO DAILY #90 TABLETS 4 10/30/24 Rx PFSH Medical History Depression Anxiety Thyroid disease Dietary restriction Wears glasses Non-smoker Monochorionic diamniotic twin gestation Infertility Abnormal glucose affecting Surgical History H/O laparoscopy Status post dilation and curettage Status post Delivery by section History of gynecologic surgery History of wisdom tooth extraction, class II edentulism Family History Father Cancer skin Sister Cancer hodgkins lymphoma 2010 Social History Smoking Status: Never smoker alcohol intake: current details: social substance use type: does not use caffeine: Yes what type of physical activity do you participate in: walking and yoga frequency: 1-2 times per week seatbelt use: always do you feel safe at home: Yes additional social history: Rachid- 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 Pt.advises she can tell that she is due for an adjustment. She complains of her neck being sore and stiff especially on the right side. She has noticed limited ROM in her neck with the right side being the worst. She states her neck has been very tight in the mornings upon waking. She states her low back has been sore lately. She stretches and walks often which is helpful in reducing her pain. 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 She denies new injury, numbness, tingling or radiculopathy. She continues to treat pain with heat, yoga and stretching at home. Pt. reports chiropractic adjustments are effective in relieving her pain and discomfort but it gradually returns. Location: neck/back Duration: frequent Aggravating or associated factors: twisting, ADLs, morning Relieving factors: chiro Pain Quality: aching and dull Exam Musc General: Yes normal posture, normal gait, muscle weakness, joint tenderness and decreased range of motion Cervical Spine: Yes loss of normal cervical lordosis, Yes cervical muscular tenderness bilateral diffuse , Yes cervical spasm right upper intrinsics, left greater than right lower trapezius and paracervical muscles and Yes misalignment misalignment: C1, C2, C6 and C7 Thoracic/Lumber: Yes thoracic and lumbar spine normal to inspection, Yes paraspinal tenderness bilaterally in the upper thoracic, in the mid thoracic, in the mid lumbar and in the lower lumbar, Yes scoliosis (R lumbar curve), Yes thoraco-lumbar spasm bilaterally (lumbar paraspinal) in the mid lumbar and in the lower lumbar and on the left greater than right (trap, levator) and Yes misalignment T1, T2, T7, T8, T9, T10, L3, L4 and L5 Office Procedures Procedures - Chiropractic Procedures Manipulation: Cervical C2 and C7, Lumbar L3 and L5 and Thoracic T2 and T7 Manipulation: 3-4 regions Traction, Mechanical: Yes Hot and/or cold packs: Yes Patient Response: positive Assessment and Plan Assessment and Plan (1) Segmental and somatic dysfunction of cervical region: Status: Acute (2) Segmental and somatic dysfunction of thoracic region: Status: Acute (3) Segmental an (more content not included)... Normal [facility] Chiropractic Reporton 2024 Chiropractic Report [facility] [address] [place] [address] OFFICE VISIT Date of Service: 10/01/24 MR#: [id number] Acct: [id number] Name: RACHEAL MERRILL Rep #: [id number] : 1990 Provider: RAS Lam Age/Sex: 34/F Location: [facility] Status: Signed Intake Vital Signs 07/09/24 08:49 Height 5 ft 5 in Weight: 130 lb 4 oz BMI 21.7 BP 124/74 H Intake Visit Reasons: Back pain Chief Complaint: neck and low back Allergies No Known Allergies Allergy (Verified 10/01/24 16:10) Medications ???Medication ???Instructions ???Recorded ???Confirmed ???Type vitamins no.119-iron 1 tab PO DAILY Check with primary 05/05/21 10/01/24 History fumarate 29 mg-folic acid 1 mg doctor tablet Saccharomyces boulardii 250 mg 250 mg PO DAILY 02/03/22 10/01/24 History capsule (Daily Probiotic (S. boulardii)) cholecalciferol (vitamin D3) 50 50 mcg PO DAILY 02/03/22 10/01/24 History mcg (2,000 unit) capsule ascorbate calcium (vitamin C) 500 500 mg PO DAILY 08/05/22 10/01/24 History mg tablet magnesium citrate 100 mg tablet 100 mg PO DAILY 08/05/22 10/01/24 History levothyroxine 50 mcg capsule 50 mcg PO DAILY 03/07/23 10/01/24 History citalopram 10 mg tablet 10 mg PO QDAY #90 tabs 05/15/24 Rx citalopram 20 mg tablet 20 mg PO DAILY #90 TABLETS 4 10/01/24 Rx PFSH Medical History Depression Anxiety Thyroid disease Dietary restriction Wears glasses Non-smoker Monochorionic diamniotic twin gestation Infertility Abnormal glucose affecting Surgical History H/O laparoscopy Status post dilation and curettage Status post Delivery by section History of gynecologic surgery History of wisdom tooth extraction, class II edentulism Family History Father Cancer skin Sister Cancer hodgkins lymphoma 2011 Social History Smoking Status: Never smoker alcohol intake: current details: social substance use type: does not use caffeine: Yes what type of physical activity do you participate in: walking and yoga frequency: 1-2 times per week seatbelt use: always do you feel safe at home: Yes additional social history: Rachid- 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 Pt.advises she has been experiencing neck stiffness that is worse on the right side. She states her neck has been very tight in the mornings when she wakes up. She denies recent headaches. She states her low back has been feeling good recently. She stretches and walks often which is helpful in reducing her pain. 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 She denies new injury, numbness, tingling or radiculopathy. She continues to treat pain with heat, yoga and stretching at home. Pt. reports chiropractic adjustments are effective in relieving her pain and discomfort but it gradually returns. Location: neck/back Duration: frequent Aggravating or associated factors: twisting, ADLs, morning Relieving factors: chiro Pain Quality: aching and dull Exam Musc General: Yes normal posture, normal gait, muscle weakness, joint tenderness and decreased range of motion Cervical Spine: Yes loss of normal cervical lordosis, Yes cervical muscular tenderness bilateral diffuse , Yes cervical spasm right upper intrinsics, left greater than right lower trapezius and paracervical muscles and Yes misalignment misalignment: C1, C2, C6 and C7 Thoracic/Lumber: Yes thoracic and lumbar spine normal to inspection, Yes paraspinal tenderness bilaterally in the upper thoracic, in the mid thoracic, in the mid lumbar and in the lower lumbar, Yes scoliosis (R lumbar curve), Yes thoraco-lumbar spasm bilaterally (lumbar paraspinal) in the mid lumbar and in the lower lumbar and on the left greater than right (trap, levator) and Yes misalignment T1, T2, T7, T8, T9, T10, L3, L4 and L5 Office Procedures Procedures - Chiropractic Procedures Manipulation: Cervical C2 and C7, Lumbar L3 and L5 and Thoracic T2 and T7 Manipulation: 3-4 regions Patient Response: positive Assessment and Plan Assessment and Plan (1) Back pain: Qualifiers: Back pain location: thoracic back pain Chronicity: acute Back pain laterality: bilateral Qualified Code(s): M54.6 - Pain in thoracic spine (2) Segmental and somatic dysfunction of cervical region: Status: Acute (3) Segmental and somatic dysfunction of thoracic region: St (more content not included)... Normal [facility] Chiropractic Reporton 2024 Chiropractic Report [facility] [place] [address] OFFICE VISIT Date of Service: 08/21/24 MR#: [id number] Acct: [id number] Name: RACHEAL MERRILL Rep #: [id number] : 1990 Provider: RAS Lam Age/Sex: 34/F Location: [facility] Status: Signed Intake Vital Signs 07/09/24 08:49 Height 5 ft 5 in Weight: 130 lb 4 oz BMI 21.7 BP 124/74 H Intake Visit Reasons: Back pain Chief Complaint: neck and low back Allergies No Known Allergies Allergy (Verified 08/21/24 16:19) Medications ???Medication ???Instructions ???Recorded ???Confirmed ???Type vitamins no.119-iron 1 tab PO DAILY Check with primary 05/05/21 08/21/24 History fumarate 29 mg-folic acid 1 mg doctor tablet Saccharomyces boulardii 250 mg 250 mg PO DAILY 02/03/22 08/21/24 History capsule (Daily Probiotic (S. boulardii)) cholecalciferol (vitamin D3) 50 50 mcg PO DAILY 02/03/22 08/21/24 History mcg (2,000 unit) capsule ascorbate calcium (vitamin C) 500 500 mg PO DAILY 08/05/22 08/21/24 History mg tablet magnesium citrate 100 mg tablet 100 mg PO DAILY 08/05/22 08/21/24 History levothyroxine 50 mcg capsule 50 mcg PO DAILY 03/07/23 08/21/24 History citalopram 10 mg tablet 10 mg PO QDAY #90 tabs 05/15/24 Rx citalopram 20 mg tablet 20 mg PO DAILY #90 TABLETS 4 08/21/24 Rx PFSH Medical History Depression Anxiety Thyroid disease Dietary restriction Wears glasses Non-smoker Monochorionic diamniotic twin gestation Infertility Abnormal glucose affecting Surgical History H/O laparoscopy Status post dilation and curettage Status post Delivery by section History of gynecologic surgery History of wisdom tooth extraction, class II edentulism Family History Father Cancer skin Sister Cancer hodgkins lymphoma 2010 Social History Smoking Status: Never smoker alcohol intake: current details: social substance use type: does not use caffeine: Yes what type of physical activity do you participate in: walking and yoga frequency: 1-2 times per week seatbelt use: always do you feel safe at home: Yes additional social history: [employer]- [facility] 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 She complains of neck pain and stiffness that is worse on the right side. She has limited ROM in her neck. She denies recent headaches. She states her low back is very tight. She stretches and walks often which is helpful in reducing her pain. 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 She denies new injury, numbness, tingling or radiculopathy. She continues to treat pain with heat, yoga and stretching at home. Pt. reports chiropractic adjustments are effective in relieving her pain and discomfort but it gradually returns. Location: neck/back Duration: frequent Aggravating or associated factors: twisting, ADLs, morning Relieving factors: chiro Pain Quality: aching and dull Exam Musc General: Yes normal posture, normal gait, muscle weakness, joint tenderness and decreased range of motion Cervical Spine: Yes loss of normal cervical lordosis, Yes cervical muscular tenderness bilateral diffuse , Yes cervical spasm right upper intrinsics, left greater than right lower trapezius and paracervical muscles and Yes misalignment misalignment: C1, C2, C6 and C7 Thoracic/Lumber: Yes thoracic and lumbar spine normal to inspection, Yes paraspinal tenderness bilaterally in the upper thoracic, in the mid thoracic, in the mid lumbar and in the lower lumbar, Yes scoliosis (R lumbar curve), Yes thoraco-lumbar spasm bilaterally (lumbar paraspinal) in the mid lumbar and in the lower lumbar and on the left greater than right (trap, levator) and Yes misalignment T1, T2, T7, T8, T9, T10, L3, L4 and L5 Office Procedures Procedures - Chiropractic Procedures Manipulation: Cervical C2 and C7, Lumbar L3 and L5 and Thoracic T2 and T7 Manipulation: 3-4 regions Traction, Mechanical: Yes Hot and/or cold packs: Yes Patient Response: positive Assessment and Plan Assessment and Plan (1) Segmental and somatic dysfunction of cervical region: Status: Acute (2) Segmental and somatic dysfunction of thoracic region: Status: Acute (3) Segmental and somatic dysfunction of lumbar region: Status: Acute (4) Scoliosis of lumbar spine: Status: Chronic Qualifiers: Idiopathic scoliosis type: other (more content not included)... Normal [facility] Chiropractic Reporton 2024 Chiropractic Report [facility] [address] [place] [address] OFFICE VISIT Date of Service: 07/19/24 MR#: [id number] Acct: [id number] Name: RACHEAL MERRILL CHRIS Rep #: [id number] : 1990 Provider: RAS Lam Age/Sex: 34/F Location: [facility] Status: Signed Intake Vital Signs 06/25/24 08:24 07/09/24 08:49 Height 5 ft 5 in 5 ft 5 in Weight: 130 lb 4 oz BMI 21.7 BP 124/74 H Intake Visit Reasons: Back pain Chief Complaint: neck and low back Is patient in pain?: Yes (neck and low back ) Pain scale (1-10): 6 Allergies No Known Allergies Allergy (Verified 07/19/24 16:19) Medications ???Medication ???Instructions ???Recorded ???Confirmed ???Type vitamins no.119-iron 1 tab PO DAILY Check with primary 05/05/21 07/09/24 History fumarate 29 mg-folic acid 1 mg doctor tablet Saccharomyces boulardii 250 mg 250 mg PO DAILY 02/03/22 07/09/24 History capsule (Daily Probiotic (S. boulardii)) cholecalciferol (vitamin D3) 50 50 mcg PO DAILY 02/03/22 07/09/24 History mcg (2,000 unit) capsule ascorbate calcium (vitamin C) 500 500 mg PO DAILY 08/05/22 07/09/24 History mg tablet magnesium citrate 100 mg tablet 100 mg PO DAILY 08/05/22 07/09/24 History levothyroxine 50 mcg capsule 50 mcg PO DAILY 03/07/23 07/09/24 History citalopram 10 mg tablet 10 mg PO QDAY #90 tabs 05/15/24 07/09/24 Rx citalopram 20 mg tablet 20 mg PO DAILY #90 TABLETS 05/15/24 07/09/24 Rx PFSH Medical History Depression Anxiety Thyroid disease Dietary restriction Wears glasses Non-smoker Monochorionic diamniotic twin gestation Infertility Abnormal glucose affecting Surgical History H/O laparoscopy Status post dilation and curettage Status post Delivery by section History of gynecologic surgery History of wisdom tooth extraction, class II edentulism Family History Father Cancer skin Sister Cancer hodgkins lymphoma 2011 Social History Smoking Status: Never smoker alcohol intake: current details: social substance use type: does not use caffeine: Yes what type of physical activity do you participate in: walking and yoga frequency: 1-2 times per week seatbelt use: always do you feel safe at home: Yes additional social history: Rachid- 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 Pt. advises she had to cancel her last adjustment d/t illness. She states her neck is tight and painful particularly on the right side. She rates her pain 6/10 and denies recent headaches. She states her low back is also sore and stiff. She stretches and walks often which is helpful in reducing her pain. 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 She denies new injury, numbness, tingling or radiculopathy. She continues to treat pain with heat, yoga and stretching at home. Pt. reports chiropractic adjustments are effective in relieving her pain and discomfort but it gradually returns. Location: neck/back Duration: frequent Aggravating or associated factors: twisting, ADLs, morning Relieving factors: chiro Pain Quality: aching and dull Exam Musc General: Yes normal posture, normal gait, muscle weakness, joint tenderness and decreased range of motion Cervical Spine: Yes loss of normal cervical lordosis, Yes cervical muscular tenderness right greater than left diffuse , Yes cervical spasm right upper intrinsics, left greater than right lower trapezius and paracervical muscles and Yes misalignment misalignment: C1, C2, C6 and C7 Thoracic/Lumber: Yes thoracic and lumbar spine normal to inspection, Yes paraspinal tenderness bilaterally in the upper thoracic, in the mid thoracic, in the mid lumbar and in the lower lumbar, Yes scoliosis (R lumbar curve), Yes thoraco-lumbar spasm bilaterally (lumbar paraspinal) in the mid lumbar and in the lower lumbar and on the left greater than right (trap, levator) and Yes misalignment T1, T2, T7, T8, T9, T10, L3, L4 and L5 Office Procedures Procedures - Chiropractic Procedures Manipulation: Cervical C2 and C7, Lumbar L3 and L5 and Thoracic T2 and T7 Manipulation: 3-4 regions Traction, Mechanical: Yes Patient Response: positive Assessment and Plan Assessment and Plan (1) Back pain: Qualifiers: Back pain location: low back pain Chronicity: acute Back pain laterality: bilateral Sciatica presence: without sciatica Qualified Code(s): M54.50 - Low back pain, unsp (more content not included)... Normal [facility] Technology Manager Office Visit Reporton 07-09-2024 Technology Manager Office Visit Report [facility] [address], [address] [place] [address] OFFICE VISIT Date of Service: 07/09/24 MR#: [id number] Acct: [id number] Name: RACHEAL MERRILL Rep #: [id number] : 1990 Provider: Dr. Andree Culver DO Age/Sex: 34/F [place] [facility] [place]: Signed Intake Vital Signs 05/15/24 14:59 06/26/24 12:27 07/09/24 08:49 Height 5 ft 5 in 5 ft 5 in 5 ft 5 in Weight: 130 lb 4 oz BMI 21.7 BP 124/74 H Intake Visit Reasons: 2 wk diag. lap possible lysis of adhesions Chief Complaint: 2w incision check Seam Press Operator Required: No Is patient in pain?: No Allergies No Known Allergies Allergy (Verified 07/09/24 08:47) Medications ???Medication ???Instructions ???Recorded ???Confirmed ???Type vitamins no.119-iron 1 tab PO DAILY Check with primary 05/05/21 07/09/24 History fumarate 29 mg-folic acid 1 mg doctor tablet Saccharomyces boulardii 250 mg 250 mg PO DAILY 02/03/22 07/09/24 History capsule (Daily Probiotic (S. boulardii)) cholecalciferol (vitamin D3) 50 50 mcg PO DAILY 02/03/22 07/09/24 History mcg (2,000 unit) capsule ascorbate calcium (vitamin C) 500 500 mg PO DAILY 08/05/22 07/09/24 History mg tablet magnesium citrate 100 mg tablet 100 mg PO DAILY 08/05/22 07/09/24 History levothyroxine 50 mcg capsule 50 mcg PO DAILY 03/07/23 07/09/24 History citalopram 10 mg tablet 10 mg PO QDAY #90 tabs 05/15/24 07/09/24 Rx citalopram 20 mg tablet 20 mg PO DAILY #90 TABLETS 05/15/24 07/09/24 Rx Post menopausal: No Patient : No : No PFSH Medical History Depression Anxiety Thyroid disease Dietary restriction Wears glasses Non-smoker Monochorionic diamniotic twin gestation Infertility Abnormal glucose affecting Surgical History H/O laparoscopy Status post dilation and curettage Status post Delivery by section History of gynecologic surgery History of wisdom tooth extraction, class II edentulism Family History Father Cancer skin Sister Cancer hodgkins lymphoma 2010 Social History Smoking Status: Never smoker alcohol intake: current details: social substance use type: does not use caffeine: Yes what type of physical activity do you participate in: walking and yoga frequency: 1-2 times per week seatbelt use: always do you feel safe at home: Yes 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 lap possible lysis of adhesions Details: RACHEAL MERRILL is a 34 year old who presents for follow up laparoscopy. She states that she is feeling overall well. has a virtual meeting with Dr. Faye coming up to discuss the next steps. The problem is her partner's sperm morphology. They have discussed all options, including adoption. History 3 Elective abortions Hx Para 1 Spontaneous abortions 2 Hx # Term Pregnancies Ectopic pregnancies Hx # Pregnancies Multiple births 1 # of living children 1 Past Pregnancies Del. Date Name GA/Weeks Outcome Route Bth Weight Infant Gen Labor Lgth Anesthesia Del Locatn Provider FOB 06/21/21 Whitney (may) 34 live - 4lbs 10oz Female [facility] Dr. Duarte 06/21/21 Ck 34 live - 5lbs 3oz [facility] Dr Mine Turk Delivery Date: 06/21/21 Last Updated by: Magalis Noyola PPROM 34 weeks, mono di twins, stat LTCS len 6cm, ph 7.2 resuscitation, 2 days Delivery Date: 06/21/21 Last Updated by: Magalis Noyola PPROM 34 weeks, mono di twins, stat LTCS len baby A, 6cm, ph 7.2 ROS ENT ENT: Reports system reviewed and no additional complaints, except as documented Cardio Card: Reports system reviewed and no additional complaints, except as documented Resp Resp: Denies cough, dyspnea or dyspnea on exertion GI GI: Denies abdominal pain, bloating or change in bowel habits : Denies vaginal odor or vaginal pruritus Musc Musc: Reports system reviewed and no additional complaints, except as documented Exam Const General: cooperative, healthy appearing and comfortable Resp Effort Inspection: normal respiratory effort GI Palpation: soft and nontender Rectal Exam: other Extrem General: no edema Coding Level of Care Code No Charge Diagnoses Status post laparoscopy Z98.890 Assessment and Plan Assessment and Plan (1) Status post laparoscopy: Status: Acute Plan: small areas of endometriosis were ablated and tubes were flushed with meth (more content not included)... Normal [facility] Discharge Instructionon 05-29 Discharge Instruction [facility] Medical Records Department [address] [place] [address] Instructions for Home/Discharge Instructions 06/26/24 1510 MR#: [id number] Acct: [id number] Name: RACHEAL MERRILL Rep #: [id number] : 1990 34 From: Andree Turk DO PCP: Dr. Magalis Damico MD Status:REG SDC Discharge Instructions Diet Discharge Diet: No restrictions DC O2, CPAP, BIPAP needs Home O2 Discharge instructions: No Dressing / Incision Discharge Activity: Return to Normal Activity, May Not Drive (for two weeks or while taking narcotic pain medications.), May Shower and May Take a Tub Bath (in 7 days) May resume sexual activity in: 1 week Weight Bearing Status: Full weight bearing Dressing / Incision Call your doctor if you observe: Using more than 1 pad per hour, Shortness of breath, Chest pain and Uncontrolled pain Suture Line Care: Avoid Pulling/Pushing and Avoid Pinching/Bending Remove Dressing in: 1 week (if present) Cleanse incision/area with: Soap Water and Keep Dressing Clean Dry Follow Up Care Please Follow Up With: Andree Turk DO When: Call to make an appointment with your doctor for a follow up incision check in 1-2 weeks. Test Results: Test results from this visit will be discussed in further detail at your follow-up appointment, if applicable. Discharge Plan Admission Primary Reason for Your Visit: laparoscopy Attending Provider: Andree Turk Primary Care Provider: Magalis Damico Consulting Providers: Angela Bryant Instructions Print Language: Welsh Discharge Orders/Prescriptions Prescriptions: New oxycodone 5 mg capsule 5 mg PO Q6H PRN (Reason: pain) 3 Days Qty: 10 0RF Continued PNV 119-iron fum-folic acid 29 mg iron- 1 mg tablet 1 tab PO DAILY cholecalciferol (vitamin D3) 50 mcg (2,000 unit) capsule 50 mcg PO DAILY Saccharomyces boulardii [Daily Probiotic (S. boulardii)] 250 mg capsule 250 mg PO DAILY levothyroxine 50 mcg capsule 50 mcg PO DAILY ascorbate calcium (vitamin C) 500 mg tablet 500 mg PO DAILY magnesium citrate 100 mg tablet 100 mg PO DAILY citalopram 10 mg tablet 10 mg PO QDAY Qty: 90 4RF Rx Instructions: take once a day along with the 20 mg tab citalopram 20 mg tablet 20 mg PO DAILY Qty: 90 3RF Referrals / Follow Up: Magalis Damico MD [Primary Care Provider] - Disposition Disposition (needs filled in before D/C Order can be placed): Home, Self Care 06/26/24 1512 Andree Turk DO CC: Dr. Magalis Damico MD; Dr. Angela Bryant MD Signed [facility] MR/POSTOP.[facility] 06-26-2024 MR/POSTOP.[facility] Medical Records Department [address] [place] [address] Anesthesia Postop Eval I 06/26/24 1645 MR#: [id number] Acct: [id number] Name: RACHEAL MERRILL Rep #: [id number] : 1990 34 From: Fady Murray CRNA PCP: Dr. Magalis Damico MD Status:REG SDC Y Race: C Location: [place] [address] Anesthesia: Postop Eval I Current Vital Signs Temperature: 97.4 F Pulse Rate: 86 Blood Pressure: 101/65 Respiratory Rate: 14 Pulse Ox: 100 Oxygen Delivery Method: Room Air Assessment Airway patent: Yes Spontaneous unlabored respirations: Yes Mental status: Awake and Calm nausea: No Vomiting: No Anesthesia Complication: No Fluid Hydration Crystalloid volume administer (ml): 1,000 Total IV fluid infused: 1,000 Progress Note Anesthesia document: Postop Eval 1 completed: Yes 06/26/24 1645 Date Fady Ramzeyad CENTRAL SUPPLY MANAGER Cosigner Signature: Date CC: Signed Normal [facility] MR/OMISAYFY1qo 06-26-2024 [facility] Medical Records Department [address] [facility] [place] [address] Anesthesia Postop Eval II 06/26/242003 MR#: [id number] Acct: [id number] Name: RACHAEL MERRILL CHRIS Rep #: [id number] : 1990 34 From: Radny Murrieta MD PCP: Dr. Magalis Damico MD Status:[facility] Y Race: C Location: [facility] Anesthesia Postop Eval I Sum Postop Eval Completion status Anesthesia document: Postop Eval 1 completed: Yes Anesthesia Postop Eval I Summary Anesthesia Postop Eval I Summary: Anesthesia Postop Eval I: Assessment Summary Airway patent Yes 06/26/24 16:45 CENTRAL SUPPLY MANAGER.[email or web address] Spontaneous unlabored Yes 06/26/24 16:45 CENTRAL SUPPLY MANAGER.[email or web address] respirations Mental status Awake,Calm 06/26/24 16:45 CENTRAL SUPPLY MANAGER.[email or web address] nausea No 06/26/24 16:45 CENTRAL SUPPLY MANAGER.[email or web address] Vomiting No 06/26/24 16:45 CENTRAL SUPPLY MANAGER.JBLOU Anesthesia Postop Eval I: Fluid Summary Crystalloid volume administer 1,000 06/26/24 16:45 CENTRAL SUPPLY MANAGER.JBLOU (ml) Colloids volume administered ( ml) Blood Product volume administered (ml) Total IV fluid infused 1,000 06/26/24 16:45 CENTRAL SUPPLY MANAGER.JBLOU Anesthesia Postop Eval I: Summary Notes Anesthesia Complication No 06/26/24 16:45 CENTRAL SUPPLY MANAGER.JBLOU Anesthesia Complication Comment: Post-operative progress note Anesthesia: Postop Eval II Evaluation Mental status: Awake Pain Level: 0 nausea: No Vomiting: No 06/26/242004 Date Randy Beauchamp Signature: Date CC: Signed Normal [facility] Operative Reporton 4 Operative Report [facility] Medical Records Department [address] [place] [address] Operative Report 06/26/24 1600 MR#: [id number] Acct: [id number] Name: RACHEAL MERRILL Rep #: [id number] : 1990 34 From: Andree Turk DO PCP: Dr. Magalis Damico MD Status:[facility] Location: [place] [address] Problems Associated Problem List Diagnoses (1) Pelvic pain: Multi Select Codes Urinary/Genital Urinary/Genital CPT Codes: 89746 Chromotubation and 37846 Laproscopic ablation endometriosis Operative Report (Standard) Operative Information Date of Procedure: 06/26/24 Pre-Operative Diagnosis: Pelvic pain and recurrent miscarriage, suspect possible endometriosis Post-Operative Diagnosis: Pelvic pain and recurrent miscarriage, suspect possible endometriosis Surgery/Procedure Performed: Diagnostic laparoscopy destruction of endometriosis and chromotubation of fallopian tubes telecommunication engineer: Yes Bootmaker: Harish Hogan Tasks completed by chemist assistant: Closing, Insert Trochanter, Hemostasis: Tie and Trocar Additional field research assistant?: No Type of Anesthesia: General RN Documented Start/Stop Times: Operation Date: 06/26/24 13:45 Case Time Into Pre-Op 06/26/24 12:08 Anesthesia Start 06/26/24 15:25 Into Room 06/26/24 15:25 Procedure Start 06/26/24 15:40 Procedure End 06/26/24 15:59 Anesthesia End 06/26/24 16:03 Out of Room 06/26/24 16:03 Into Recovery 06/26/24 16:07 Procedure Start Time: 15:40 Procedure Stop Time: 15:59 Select all DRAINS/GRAFTS/IMPLANTS that apply: None Estimated Blood Loss: 0 Fluids Replaced: 1000cc Specimen collected: No Description of surgery: Patient was taken in the operating room and was placed under general anesthesia was prepped and draped in normal sterile fashion in the dorsal lithotomy position. Bladder was drained of clear urine and SCDs were on preoperatively. A single toothed tenaculum was placed on the anterior lip the cervix and a uterine manipulator was inserted through the cervix and into the uterus. Attention was then paid to the abdominal portion of the procedure and the umbilicus was elevated with towel clamps and injected with Marcaine and after a 5 mm incision was made and a 5 mm laparoscope was inserted into the abdomen under direct visualization. The Abdomen was insufflated with CO2 gas and the patient was placed in trundelenburg position. A left lower quadrant 5 mm port was placed without difficulty. There were Powder burn grey noted in the cul-de-sac on the right and left sides. These were cauterized and destroyed using the monopolar cautery connected to laparoscopic scissors. Methylene blue was then attached to the uterine manipulator and injected into the uterus. Blue dye was seen flowing from both fallopian tubes, identifying bilateral tubal patency. Overall the uterus, fallopian tubes, ovaries, bowel and liver appeared normal without scaring of endometriosis. Surgical Findings: mild endometriosis in the cul-de-sac, patent fallopian tubes bilaterally. Complications Complications: No Admit VTE Documentation VTE Present on Admission: No VTE Mechan Device Prophylaxis: SCD's VTE Pharm Prophylaxis ordered?: No 06/26/24 3095 Cosigner Signature (if applicable): CC: Dr. Magalis Damico MD; Dr. Andree Turk DO; Dr. Angela Bryant MD Signed [facility] ,Urineon 06-26-2024 Beta HCG ( test) Ql (U) Negative [facility] Comment on above: Result Comment: Very dilute urine specimens, as indicated by a low specific gravity, may not contain sales solutions representative levels of hCG. If is still suspected, a first morning urine specimen should be collected 48 hours later and tested. Performed By: #### L 400.7600 ####[facility] [address] [place], [address] CBC-Complete Blood Cnt No Di ffon 06-23-2024 Erythrocyte distribution width (RBC) [Ratio] 12.2 % Normal 11.6-14.6 [facility] Comment on above: Order Comment: WILL DRAW GREEN IN CASE ANESTESIA WANTS A MG NO ORDER IN.DR TURK ORDERED CBC, TSPATDR MASSELALL ORDERED TSH Performed By: #### L 501.9520, BTSPAT, L100.0500 ####[facility] [address] [place], [place], [phone]) Hematocrit (Bld) [Volume fraction] 37.7 % Normal 37-47 [facility] Comment on above: Order Comment: WILL DRAW GREEN IN CASE ANESTESIA WANTS A MG NO ORDER IN.DR TURK ORDERED CBC, TSPATDR MASSELALL ORDERED TSH Performed By: #### L 501.9520, BTSPAT, L100.0500 ####[facility] [address] [place], [address] Hemoglobin (Bld) [Mass/Vol] 12.4 g/dL Normal 12.0-15.0 [facility] Comment on above: Order Comment: WILL DRAW GREEN IN CASE ANESTESIA WANTS A MG NO ORDER IN.DR TURK ORDERED CBC, TSPATDR MASSELALL ORDERED TSH Performed By: #### L 501.9520, BTSPAT, L100.0500 ####[facility] [address] [place], [address] MCH (RBC) [Entitic mass] 29.2 pg Normal 27.0-32.0 [facility] Comment on above: Order Comment: WILL DRAW GREEN IN CASE ANESTESIA WANTS A MG NO ORDER IN.DR TURK ORDERED CBC, TSPATDR MASSELALL ORDERED TSH Performed By: #### L 501.9520, BTSPAT, L100.0500 ####[facility] [address] [place], [address] MCHC (RBC) [Mass/Vol] 32.9 g/dL Normal 32-36 [facility] Comment on above: Order Comment: WILL DRAW GREEN IN CASE ANESTESIA WANTS A MG NO ORDER IN.DR TURK ORDERED CBC, TSPATDR MASSELALL ORDERED TSH Performed By: #### L 501.9520, BTSPAT, L100.0500 ####[facility] [address] [place], [address] MCV (RBC) [Entitic vol] 88.7 fL Normal 81-99 [facility] Comment on above: Order Comment: WILL DRAW GREEN IN CASE ANESTESIA WANTS A MG NO ORDER IN.DR TURK ORDERED CBC, TSPATDR MASSELALL ORDERED TSH Performed By: #### L 501.9520, BTSPAT, L100.0500 ####[facility] [address] [place], [address] Platelet mean volume (Bld) [Entitic vol] 10.7 fL Normal 6.2-12.0 [facility] Comment on above: Order Comment: WILL DRAW GREEN IN CASE ANESTESIA WANTS A MG NO ORDER IN.DR TURK ORDERED CBC, TSPATDR MASSELALL ORDERED TSH Performed By: #### L 501.9520, BTSPAT, L100.0500 ####[facility] [address] [place], [address] Platelets (Bld) [#/Vol] 291 10*3/uL Normal 150-450 [facility] Comment on above: Order Comment: WILL DRAW GREEN IN CASE ANESTESIA WANTS A MG NO ORDER IN.DR TURK ORDERED CBC, TSPATDR MASSELALL ORDERED TSH Performed By: #### L 501.9520, BTSPAT, L100.0500 ####[facility] [address] [place], [address] RBC (Bld) [#/Vol] 4.25 10*6/uL Normal 4.2-5.4 [facility] Comment on above: Order Comment: WILL DRAW GREEN IN CASE ANESTESIA WANTS A MG NO ORDER IN.DR TURK ORDERED CBC, TSPATDR MASSELALL ORDERED TSH Performed By: #### L 501.9520, BTSPAT, L100.0500 ####[facility] [address] [place], [address] RDW SD 38.8 fl Normal 35.1-43.9 [facility] Comment on above: Order Comment: WILL DRAW GREEN IN CASE ANESTESIA WANTS A MG NO ORDER IN.DR TURK ORDERED CBC, TSPATDR MASSELALL ORDERED TSH Performed By: #### L 501.9520, BTSPAT, L100.0500 ####[facility] [address] [place], [place], [address] WBC (Bld) [#/Vol] 6.1 10*3/uL Normal 4.4-11.0 [facility] Comment on above: Order Comment: WILL DRAW GREEN IN CASE ANESTESIA WANTS A MG NO ORDER IN.DR TURK ORDERED CBC, TSPATDR MASSELALL ORDERED TSH Performed By: #### L 501.9520, BTSPAT, L100.0500 ####[facility] [address], [address] Thyroid Stim Hormone (TSH)on 06-23-2024 TSH 0.395 uIU/mL Normal 0.358-3.740 [facility] Comment on above: Order Comment: WILL DRAW GREEN IN CASE ANESTESIA WANTS A MG NO ORDER IN.DR TURK ORDERED CBC, TSPATDR MASSELALL ORDERED TSH Performed By: #### L 501.9520, BTSPAT, L100.0500 ####[facility] [address] [place], [place], [phone] Type AND Screen - PAT ONLYon 06-23-2024 Ab SCREEN GEL Negative Normal [facility] Comment on above: Order Comment: Surge ry Date: 06/26/24Reason for Laboratory Test PREOPWILL DRAW GREEN IN CASE ANESTESIA WANTS A MG NO ORDER IN.DR TURK ORDERED CBC, TSPATDR MASSELALL ORDERED [id number] LAP LYSIS OF ADHESIONS Performed By: #### L 501.9520, BTSPAT, L100.0500 ####[facility] [address] [place], [address] Technology Manager Office Visit Reporton 06-08-2024 Technology Manager Office Visit Report [facility] [address], [address] [place] [address] OFFICE VISIT Date of Service: 06/08/24 MR#: [id number] Acct: [id number] Name: RACHEAL MERRILL Rep #: [id number] : 1990 Provider: Dr. Andree Culver, Age/Sex: 34/F [place] [facility] [place]: Signed Intake Vital Signs 05/15/24 14:59 06/08/24 16:04 06/08/24 16:04 Height 5 ft 5 in 5 ft 5 in 5 ft 5 in Weight: 130 lb 2 oz BMI 21.6 BP 129/84 H Intake Visit Reasons: diag. lap possible lysis of adhesions Seam Press Operator Required: No Is patient in pain?: No Allergies No Known Allergies Allergy (Verified 06/08/24 16:03) Medications ???Medication ???Instructions ???Recorded ???Confirmed ???Type vitamins no.119-iron 1 tab PO DAILY Check with primary 05/05/21 06/08/24 History fumarate 29 mg-folic acid 1 mg doctor tablet Saccharomyces boulardii 250 mg 250 mg PO BID 02/03/22 06/08/24 History capsule (Daily Probiotic (S. boulardii)) cholecalciferol (vitamin D3) 50 50 mcg PO DAILY 02/03/22 06/08/24 History mcg (2,000 unit) capsule ascorbate calcium (vitamin C) 500 500 mg PO DAILY 08/05/22 06/08/24 History mg tablet magnesium citrate 100 mg tablet 100 mg PO DAILY 08/05/22 06/08/24 History levothyroxine 50 mcg capsule 50 mcg PO DAILY 03/07/23 06/08/24 History citalopram 10 mg tablet 10 mg PO QDAY #90 tabs 05/15/24 06/08/24 Rx citalopram 20 mg tablet 20 mg PO DAILY #90 TABLETS 05/15/24 06/08/24 Rx Post menopausal: No Patient : No : No [facility] Medical History Wears contact lenses Wears glasses Non-smoker Monochorionic diamniotic twin gestation Infertility Thyroid disorder Abnormal glucose affecting Surgical History Status post dilation and curettage Status post Delivery by section History of gynecologic surgery History of wisdom tooth extraction, class II edentulism Family History Father Cancer skin Sister Cancer hodgkins lymphoma 2010 Social History Smoking Status: Never smoker alcohol intake: current details: social substance use type: does not use caffeine: Yes what type of physical activity do you participate in: walking and yoga frequency: 1-2 times per week seatbelt use: always do you feel safe at home: Yes additional social history: 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 She has tried multiple rounds of IVF, most recently in February and lost the embryo. 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 Faye is recommending a diagnostic laparoscopy due to symptoms of pelvic pain and cramping between cycles. She also is feeling more tearful lately and wonders if can have citalopram increased to 30 mg daily. History 3 Elective abortions Hx Para 1 Spontaneous abortions 2 Hx # Term Pregnancies Ectopic pregnancies Hx # Pregnancies Multiple births 1 # of living children 1 Past Pregnancies Del. Date Name GA/Weeks Outcome Route Bth Weight Infant Gen Labor Lgth Anesthesia Del Locatn Provider FOB 06/21/21 [place] (dec) 34 live - 4lbs 10oz Female [facility] Dr. Duarte 06/21/21 [place] 34 live - 5lbs 3oz [facility] Dr Mine Turk Delivery Date: 06/21/21 Last Updated by: Magalis Noyola PPROM 34 weeks, mono di twins, stat LTCS len 6cm, ph 7.2 resuscitation, 2 days Delivery Date: 06/21/21 Last Updated by: Magalis Noyola PPROM 34 weeks, mono di twins, stat LTCS len baby A, 6cm, ph 7.2 ROS Const ROS Unobtainable: All systems reviewed are unremarkable except as noted in H Resp Resp: Reports system reviewed and no additional complaints, except as documented; Denies cough GI GI: Reports as per HPI Psych Psych: Reports system reviewed and no additional complaints, except as documented Exam Const General: cooperative, healthy appearing, comfortable and no acute distress Resp Effort Inspection: normal respiratory effort Skin General: no rashes or lesions noted Psych Appearance: grossly normal Speech and Movement: speech and movement normal Coding Level of Care Code Off vis,est,level 4 Diagnoses Pelvic pain R10.2 Infertility Assessment and Plan Assessment and Plan (1) Pelvic pain: Status: Acute (2) Infertility: Status: Acute Comment: HX IVF Plan After discussing the patient's diagn (more content not included)... Normal [facility] Chiropractic Reporton 2023 Chiropractic Report [facility] Chiropractic [facility] [place] [address] OFFICE VISIT Date of Service: 05/29/24 MR#: [id number] Acct: [id number] Name: RACHEAL MERRILL Rep #: [id number] : 1990 Provider: RAS Lam Age/Sex: 34/F Location: [facility] Status: Signed Intake Vital Signs 03/07/23 10:29 05/15/24 14:59 Height 5 ft 5 in 5 ft 5 in Intake Visit Reasons: Back pain Chief Complaint: neck and low back pain Is patient in pain?: Yes (Neck, LBP) Pain scale (1-10): 2 Allergies No Known Allergies Allergy (Verified 05/29/24 16:17) Medications ???Medication ???Instructions ???Recorded ???Confirmed ???Type vitamins no.119-iron 1 tab PO DAILY Check with primary 05/05/21 05/29/24 History fumarate 29 mg-folic acid 1 mg doctor tablet Saccharomyces boulardii 250 mg 250 mg PO BID 02/03/22 05/29/24 History capsule (Daily Probiotic (S. boulardii)) cholecalciferol (vitamin D3) 50 50 mcg PO DAILY 02/03/22 05/29/24 History mcg (2,000 unit) capsule ascorbate calcium (vitamin C) 500 500 mg PO DAILY 08/05/22 05/29/24 History mg tablet magnesium citrate 100 mg tablet 100 mg PO DAILY 08/05/22 05/29/24 History levothyroxine 50 mcg capsule 50 mcg PO DAILY 03/07/23 05/29/24 History citalopram 10 mg tablet 10 mg PO QDAY #90 tabs 05/15/24 05/29/24 Rx citalopram 20 mg tablet 20 mg PO DAILY #90 TABLETS 05/15/24 05/29/24 Rx PFSH Medical History Wears contact lenses Wears glasses Non-smoker Monochorionic diamniotic twin gestation Infertility Thyroid disorder Abnormal glucose affecting Surgical History Status post dilation and curettage Status post Delivery by section History of gynecologic surgery History of wisdom tooth extraction, class II edentulism Family History Father Cancer skin Sister Cancer hodgkins lymphoma 2010 Social History Smoking Status: Never smoker alcohol intake: current details: social substance use type: does not use caffeine: Yes what type of physical activity do you participate in: walking and yoga frequency: 1-2 times per week seatbelt use: always do you feel safe at home: Yes additional social history: 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 Pt. advises her last adjustment was effective in relieving her discomfort but it gradually returns. She states her neck has generally been feeling really good, she reports minimal stiffness today. She denies recent headaches. She states her low back is sore and stiff and she notices it with certain movements. She rates her pain 2/10. She is trying to stretch and walk more which have been helpful in reducing her pain. 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 She denies new injury, numbness, tingling or radiculopathy. She continues to treat pain with heat, yoga and stretching at home. Pt. reports chiropractic adjustments are effective in relieving her pain and discomfort but it gradually returns. Location: neck/back Duration: intermittent Aggravating or associated factors: twisting, ADLs, morning Relieving factors: chiro Pain Quality: aching and dull Exam Musc General: Yes normal posture, normal gait, muscle weakness, joint tenderness and decreased range of motion Cervical Spine: Yes loss of normal cervical lordosis, Yes cervical muscular tenderness bilateral lower , Yes cervical spasm right upper intrinsics, left greater than right lower trapezius and paracervical muscles and Yes misalignment misalignment: C1, C2, C6 and C7 Thoracic/Lumber: Yes thoracic and lumbar spine normal to inspection, Yes paraspinal tenderness bilaterally in the upper thoracic, in the mid thoracic, in the mid lumbar and in the lower lumbar, Yes scoliosis (R lumbar curve), Yes thoraco-lumbar spasm bilaterally (lumbar paraspinal) in the mid lumbar and in the lower lumbar and on the left greater than right (trap, levator) and Yes misalignment T1, T2, T7, T8, T9, T10, L3, L4 and L5 Office Procedures Procedures - Chiropractic Procedures Manipulation: Cervical C2 and C7, Lumbar L3 and L5 and Thoracic T2 and T7 Manipulation: 3-4 regions Traction, Mechanical: Yes Hot and/or cold packs: Yes Patient Response: positive Assessment and Plan Assessment and Plan (1) Segmental and somatic dysfunction of cervical region: Status: Acute (2) Segmental and somatic dysfunction of thoracic region: Status: Acute (3) Seg (more content not included)... Normal [facility] Technology Manager Office Visit Reporton 05-15-2024 Technology Manager Office Visit Report [facility]'[address], [address] [place] [id number] OFFICE VISIT Date of Service: 05/15/24 MR#: [id number] Acct: [id number] Name: RACHEAL MERRILL Rep #: [id number] : 1990 Provider: Dr. 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 boulardii)) cholecalciferol (vitamin D3) 50 50 mcg PO DAILY 02/03/22 05/15/24 History mcg (2,000 unit) capsule ascorbate calcium (vitamin C) 500 500 mg PO DAILY 08/05/22 05/15/24 History mg tablet magnesium citrate 100 mg tablet 100 mg PO DAILY 08/05/22 05/15/24 History levothyroxine 50 mcg capsule 50 mcg PO DAILY 03/07/23 05/15/24 History citalopram 10 mg tablet 10 mg PO QDAY #90 tabs 05/15/24 05/15/24 Rx citalopram 20 mg tablet 20 mg PO DAILY #90 TABLETS 05/15/24 05/15/24 Rx Post menopausal: No Patient : No : No PFSH Medical History Wears contact lenses Wears glasses Non-smoker Monochorionic diamniotic twin gestation Infertility Thyroid disorder Abnormal glucose affecting Surgical History Status post dilation and curettage Status post Delivery by section History of gynecologic surgery History of wisdom tooth extraction, class II edentulism Family History Father Cancer skin Sister Cancer hodgkins lymphoma 2010 Social History (Updated 05/15/24 @ 15:02 by Magalis Noyola) Smoking Status: Never smoker alcohol intake: current details: social substance use type: does not use caffeine: Yes what type of physical activity do you participate in: walking and yoga frequency: 1-2 times per week seatbelt use: always do you feel safe at home: Yes additional social history: 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 Date Name GA/Weeks Outcome Route Bth Weight Infant Gen Labor Lgth Anesthesia Del Locatn Provider FOB 06/21/21 [place] (may) 34 live - 4lbs 10oz Female [facility] Dr. Duarte 06/21/21 [place] 34 live - 5lbs 3oz [facility] [facility] Delivery Date: 06/21/21 Last Updated by: Magalis Noyola PPROM 34 weeks, mono di twins, stat LTCS len 6cm, ph 7.2 resuscitation, 2 days Delivery Date: 06/21/21 Last Updated by: Magalis Noyola PPROM 34 weeks, mono di twins, stat LTCS len baby A, 6cm, ph 7.2 HPI Encounter for routine gynecological examination Details: RACHEAL MERRILL is a 34 year old who presents for annual exam. thas tried multiple rounds of IVF, most recently in february and lost the embryo. 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 Faye is recommending a diagnostic laparoscopy due to symoptoms of pelvic pain and cramping between cycles. She also is feeling more tearful lately and wonders if can have citalopram increased to 30 mg daily. Last PAP: 2021 History of abnormal PAP: no Last mammogram: n/a History of abnormal mammogram: n/a Colon cancer screening: n/a Other preventative health care screenings: followed by pcp Female Reproductive History Cycle Length: 21-35 Bleeding Duration: 5 Questions: metorrhagia: No, sexually active: Yes, dyspareunia: No and PCB: No Menopausal Symptoms: No hot flashes, No night sweats, No weight change, No mood changes, No difficulty concentrating, No sleep problems and No change in libido ROS Const Constitutional: Reports as per HPI; Denies fatigue, increased appetite, poor appetite, night sweats, weight gain or weight loss Cardio Card: Denies chest pain Resp Resp: Denies cough or dyspnea GI GI: Reports as per HPI; Denies abdominal pain, bloating, constipation, nausea or vomiting : Reports as per HPI and other; Denies difficulty voiding, dysuria, (more content not included)... Normal [facility] Serum or plasma choriogonado tropin detectionOrdered By: Angela Bryant on 08-15-2023 HCG ( test) Ql < 1 mIU/mL <4 [facility] Comment on above: hCG levels with Gest ational AgeGestational Age hCG mIU/mL (IU/L)0.2 - 1 week 5 - 501-2 weeks 50 - 5002-3 weeks 100 - 01230-0 weeks 500 - 683897-0 weeks 1000 - 489232-2 weeks 59903 - 100,0006-8 weeks 15306 - 200,0002-3 months 25296 - 100,000 No Panel InformationOrdered By: Angela Bryant on 05-04-2023 Thyroid Stimulating Hormone (TSH) 1.89 uIU/mL 0.358-3.74 [facility] Serum or plasma choriogonado tropin detectionOrdered By: Angela Bryant on 05-04-2023 HCG ( test) Ql 3 mIU/mL <4 [facility] Comment on above: hCG levels with Gest ational AgeGestational Age hCG mIU/mL (IU/L)0.2 - 1 week 5 - 501-2 weeks 50 - 5002-3 weeks 100 - 12767-1 weeks 500 - 536886-0 weeks 1000 - 738180-9 weeks 64695 - 100,0006-8 weeks 27944 - 200,0002-3 months 65129 - 100,000 Serum or plasma choriogonado tropin detectionOrdered By: Angela Bryant on 05-02-2023 HCG ( test) Ql 10 mIU/mL <4 [facility] Comment on above: hCG levels with Gest ational AgeGestational Age hCG mIU/mL (IU/L)0.2 - 1 week 5 - 501-2 weeks 50 - 5002-3 weeks 100 - 52508-1 weeks 500 - 426676-9 weeks 1000 - 695993-1 weeks 93464 - 100,0006-8 weeks 13716 - 200,0002-3 months 43473 - 100,000 Laboratory - Chemistry and C hemistry - challengeOrdered By: Angela Bryant on 03-21-2023 Free T4 [Mass/Vol] 1.20 ng/dL 0.76-1.46 [facility] No Panel InformationOrdered By: Angela Bryant on 03-21-2023 Thyroid Stimulating Hormone (TSH) 2.15 uIU/mL 0.358-3.74 [facility] Laboratory - Chemistry and C hemistry - challengeOrdered By: Angela Bryant on 02-23-2023 Free T4 [Mass/Vol] 1.03 ng/dL 0.76-1.46 [facility] No Panel InformationOrdered By: Angela Bryant on 02-23-2023 Thyroid Stimulating Hormone (TSH) 3.09 uIU/mL 0.358-3.74 [facility] No Panel InformationOrdered By: Angela Bryant on 02-16-2023 Thyroid Stimulating Hormone (TSH) 2.55 uIU/mL 0.358-3.74 [facility] Dilute Juan's viper venom timeOrdered By: Andree Martinez on 01-28-2023 dRVVT Coag (PPP) [Time] 32.4 s 0.0-47.0 [facility] No Panel InformationOrdered By: Andree Martinez on 01-28-2023 Anti-Cardiolipin IgM Antibody 9 MPL U/mL 0-12 [facility] Comment on above: Negative: <13 Indete rminate: 13 - 20 Low-Med Positive: >20 - 80 High Positive: >80 Serum beta 2 glycoprotein 1 IgA antibody detectionOrdered By: Andree Martinez on 01-28-2023 Beta 2 glycoprotein 1 IgA Ql (S) <9 0-25 [facility] Comment on above: Result Units: GPI Ig A unitsThe reference interval reflects a 3SD or 99th percentileinterval, which is thought to represent a potentiallyclinically significant result in accordance with theInternational Consensus Statement on the classificationcriteria for definitive antiphospholipid syndrome (APS). JThromb Haem 2006;4:295-306. Serum beta 2 glycoprotein 1 IgG antibody detectionOrdered By: Andree Martinez on 01-28-2023 Beta 2 glycoprotein 1 IgG Ql (S) <9 0-20 [facility] Comment on above: Result Units: GPI Ig G unitsThe reference interval reflects a 3SD or 99th percentileinterval, which is thought to represent a potentiallyclinically significant result in accordance with theInternational Consensus Statement on the classificationcriteria for definitive antiphospholipid syndrome (APS). JThromb Haem 2006;4:295-306. Serum beta 2 glycoprotein 1 IgM antibody detectionOrdered By: Andree Martinez on 01-28-2023 Beta 2 glycoprotein 1 IgM Ql (S) <9 0-32 [facility] Comment on above: Result Units: GPI Ig M unitsThe reference interval reflects a 3SD or 99th percentileinterval, which is thought to represent a potentiallyclinically significant result in accordance with theInternational Consensus Statement on the classificationcriteria for definitive antiphospholipid syndrome (APS). JThromb Haem 2006;4:295-306.Performed at: [facility] [address] [id number] Director: Elizabeth Glasgow MD, Phone: [phone] at: [facility] [id number] Director: Ishan Nino PhD, Phone: [phone] Serum cardiolipin IgG antibo dy assay by immunoassay (units/volume)Ordered By: Andree Martinez on 01-28-2023 Cardiolipin IgG IA Qn (S) < 9 GPL U/mL 0-14 [facility] Comment on above: Negative: <15 Indete rminate: 15 - 20 Low-Med Positive: >20 - 80 High Positive: >80 Serum or plasma cardiolipin IgA antibody assay (units/volume)Ordered By: Andree Martinez on 01-28-2023 Cardiolipin IgA Qn < 9 APL U/mL 0-11 [facility] Comment on above: Negative: <12 Indete rminate: 12 - 20 Low-Med Positive: >20 - 80 High Positive: >80 Thin prep Papanicolaou smear with manual screeningOrdered By: Andree Martinez on 01-28-2023 Thin prep Papanicolaou smear with manual screening 35.9 sec 0.0-47.6 [facility] Thin prep Papanicolaou smear with manual screening 0.95 Ratio 0.00-1.34 [facility] Thin prep Papanicolaou smear with manual screening 35.8 sec 0.0-43.5 [facility] Thin prep Papanicolaou smear with manual screening Comment: . [facility] Comment on above: No lupus anticoagula nt was detected. Thrombin time in platelet po or plasmaOrdered By: Andree Martinez on 01-28-2023 Thrombin time Coag (PPP) [Time] 17.5 sec 0.0-23.0 [facility] Basophil percentageOrdered B y: Dr. Martinez on 11-26-2022 WBC (Bld) [#/Vol] 8.4 10*3/uL 4.4-11.0 [facility] Blood erythrocytes count (nu mber/volume)Ordered By: Dr. Martinez on 11-26-2022 RBC (Bld) [#/Vol] 4.63 10*6/uL 4.2-5.4 [facility] Blood hemoglobin measurement (mass/volume)Ordered By: Dr. Martinez on 11-26-2022 Hemoglobin (Bld) [Mass/Vol] 14.0 g/dL 12.0-15.0 [facility] Blood platelet mean volumeOr dered By: Dr. Martinez on 11-26-2022 Platelet mean volume (Bld) [Entitic vol] 10.9 fL 6.2-12.0 [facility] Determination of erythrocyte mean corpuscular volume (MCV)Ordered By: Dr. Martinez on 11-26-2022 MCV (RBC) [Entitic vol] 90.3 fL 81-99 [facility] Hematocrit Auto (Bld) [Volum e fraction]Ordered By: Dr. Martinez on 11-26-2022 Hematocrit (Bld) [Volume fraction] 41.8 % 37-47 [facility] Laboratory - Hematology and Cell countsOrdered By: Dr. Martinez on 11-26-2022 Erythrocyte distribution width (RBC) [Entitic vol] 38.2 fL 35.1-43.9 [facility] Erythrocyte distribution width (RBC) [Ratio] 11.7 % 11.6-14.6 [facility] MCH (RBC) [Entitic mass] 30.2 pg 27.0-32.0 [facility] MCHC Auto (RBC) [Mass/Vol]Or dered By: Dr. Martinez on 11-26-2022 MCHC (RBC) [Mass/Vol] 33.5 g/dL 32-36 [facility] Platelets bldOrdered By: Dr. Martinez on 11-26-2022 Platelets (Bld) [#/Vol] 355 10*3/uL 150-450 [facility] Serum or plasma choriogonado tropin detectionOrdered By: Dr. Bryant on 10-27-2022 HCG ( test) Ql 438 mIU/mL <4 [facility] Comment on above: hCG levels with Gest ational AgeGestational Age hCG mIU/mL (IU/L)0.2 - 1 week 5 - 501-2 weeks 50 - 5002-3 weeks 100 - 94823-4 weeks 500 - 346684-7 weeks 1000 - 953279-1 weeks 61459 - 100,0006-8 weeks 74712 - 200,0002-3 months 95315 - 100,000 Serum or plasma choriogonado tropin detectionOrdered By: Dr. Bryant on 10-25-2022 HCG ( test) Ql 245 mIU/mL <4 [facility] Comment on above: hCG levels with Gest ational AgeGestational Age hCG mIU/mL (IU/L)0.2 - 1 week 5 - 501-2 weeks 50 - 5002-3 weeks 100 - 84351-7 weeks 500 - 163599-7 weeks 1000 - 247338-3 weeks 89932 - 100,0006-8 weeks 99143 - 200,0002-3 months 30893 - 100,000 Basophil percentageOrdered B y: Dr. Bryant on 07-22-2022 C. trachomatis DNA CARMEN+probe Ql (Unsp spec) Negative Negative [facility] HIV 1 and HIV-2 antibody ass ay with HIV-1 p24 antigen detectionOrdered By: Dr. Bryant on 07-22-2022 HIV 1+2 Ab+HIV1 p24 Ag IA Ql Non-Reactive Nonreactive [facility] Laboratory - Chemistry and C hemistry - challengeOrdered By: Dr. Bryant on 07-22-2022 Free T4 [Mass/Vol] 0.94 ng/dL 0.76-1.46 [facility] Neisseria gonorrhoeae detect ion by PCROrdered By: Dr. Bryant on 07-22-2022 N. gonorrhoeae DNA CARMEN+probe Ql (Cervical mucus) Negative Negative [facility] No Panel InformationOrdered By: Dr. Bryant on 07-22-2022 Hepatitis B Surface Antigen Non-Reactive Nonreactive [facility] Hepatitis C Antibody Non-Reactive Nonreactive [facility] Comment on above: Non Reactive: < 0.8 Equivocal: >/= 0.8 to < 1.0 Reactive: >/= 1.0The CDC recommends that a reactive/equivocal HCV antibody result be followed up by the HCV Nucleic Acid Amplificationtest (469033) Rubella IgG Antibody Reactive Nonreactive [facility] Comment on above: Antibody Results Int erpretation of Immune Status Non Reactive Presumed Non-Immune Equivocal Equivocal Reactive Presumed Immune Thyroid Stimulating Hormone (TSH) 2.11 uIU/mL 0.358-3.74 [facility] Serum Treponema species anti body detectionOrdered By: Dr. Bryant on 07-22-2022 Treponema sp Ab Ql (S) Non-Reactive [facility] Serum Varicella zoster virus IgG antibody assay by immunoassay (units/volume)Ordered By: Dr. Bryant on 07-22-2022 VZV IgG IA Qn (S) 1620 index Immune >165 [facility] Comment on above: Negative <135 Equivo shilpa 135 - 165 Positive >165A positive result generally indicates exposure to thepathogen or administration of specific immunoglobulins,but it is not indication of active infection or stageof disease.Performed at: [address] [id number] Director: Ishan Nino PhD, Phone: [phone] Dilute Juan's viper venom timeon 02-03-2022 dRVVT Coag (PPP) [Time] 33.2 s 0.0-47.0 [facility] Work Phone: No Panel Informationon 02-03 Anti-Cardiolipin IgM Antibody < 9 MPL U/mL 0-12 [facility] Work Phone: Comment on above: Negative: <13 Indete rminate: 13 - 20 Low-Med Positive: >20 - 80 High Positive: >80 Serum beta 2 glycoprotein 1 IgA antibody detectionon 02-03-2022 Beta 2 glycoprotein 1 IgA Ql (S) <9 0-25 [facility] Work Phone: Comment on above: Result Units: GPI Ig A unitsThe reference interval reflects a 3SD or 99th percentileinterval, which is thought to represent a potentiallyclinically significant result in accordance with theInternational Consensus Statement on the classificationcriteria for definitive antiphospholipid syndrome (APS). JThromb Haem 2006;4:295-306. Serum beta 2 glycoprotein 1 IgG antibody detectionon 02-03-2022 Beta 2 glycoprotein 1 IgG Ql (S) <9 0-20 [facility] Work Phone: Comment on above: Result Units: GPI Ig G unitsThe reference interval reflects a 3SD or 99th percentileinterval, which is thought to represent a potentiallyclinically significant result in accordance with theInternational Consensus Statement on the classificationcriteria for definitive antiphospholipid syndrome (APS). JThromb Haem 2006;4:295-306. Serum beta 2 glycoprotein 1 IgM antibody detectionon 02-03-2022 Beta 2 glycoprotein 1 IgM Ql (S) <9 0-32 [facility] Work Phone: Comment on above: Result Units: GPI Ig M unitsThe reference interval reflects a 3SD or 99th percentileinterval, which is thought to represent a potentiallyclinically significant result in accordance with theInternational Consensus Statement on the classificationcriteria for definitive antiphospholipid syndrome (APS). JThromb Haem 2006;4:295-306.Performed at: [address] [place], [place] [id number] Director: Elizabeth Glasgow MD, Phone: [phone] at: [address] [id number] Director: Ishan Nino PhD, Phone: [phone] Serum cardiolipin IgG antibo dy assay by immunoassay (units/volume)on 02-03-2022 Cardiolipin IgG IA Qn (S) < 9 GPL U/mL 0-14 [facility] Work Phone: Comment on above: Negative: <15 Indete rminate: 15 - 20 Low-Med Positive: >20 - 80 High Positive: >80 Serum or plasma cardiolipin IgA antibody assay (units/volume)on 02-03-2022 Cardiolipin IgA Qn < 9 APL U/mL 0-11 [facility] Work Phone: Comment on above: Negative: <12 Indete rminate: 12 - 20 Low-Med Positive: >20 - 80 High Positive: >80 Thin prep Papanicolaou smear with manual screeningon 02-03-2022 Thin prep Papanicolaou smear with manual screening 35.6 sec 0.0-47.6 [facility] Work Phone: Thin prep Papanicolaou smear with manual screening 0.89 Ratio 0.00-1.34 [facility] Work Phone: Thin prep Papanicolaou smear with manual screening 35.0 sec 0.0-51.9 [facility] Work Phone: Thin prep Papanicolaou smear with manual screening Comment: . [facility] Work Phone: Comment on above: No lupus anticoagula nt was detected. Thrombin time in platelet po or plasmaon 02-03-2022 Thrombin time Coag (PPP) [Time] 18.5 sec 0.0-23.0 [facility] Work Phone: Progress Noteon 01-06-2021 [employer] Aut[employer] Interface Message Text Maternal Medicine Consult Date of Service: 01/06/2021 Referring Provider: Angela Bryant Primary Care Provider: Angela Bryant MD Reason for Consult: Dr. Angela Bryant requests that Racheal be evaluated due to monochorionic diamniotic twins. Racheal is a 30 y.o. at 10w6d gestation who presents for evaluation of monochorionic diamniotic twins. HPI Monochorionic diamniotic twins. Racheal denies nausea, vomiting, visual disturbance, headaches, epigastric pain, abdominal pain, cramping, regular contractions, leakage of fluid, and/or vaginal bleeding. OB History Para Term AB Living 2 0 0 0 1 0 SAB TAB Ectopic Multiple Live Births 1 0 0 0 0 # Outcome Date GA Lbr Owen/2nd Weight Sex Delivery Anes PTL Lv 2 Current 1 SAB SAB Comments: Chemical Past Medical History: Diagnosis Date Infertility, female FET Twin gestation in first trimester Past Surgical History: Procedure Laterality Date OTHER SURGICAL HISTORY uterine polyp Allergies Allergen Reactions Cat Allergy Other (See Comments) Sneezing, watery eyes, scratchy throat Social History Socioeconomic History Marital status: Unknown Spouse name: None Number of children: None Years of education: None Highest education level: None Occupational History None Tobacco Use Smoking status: Never Smoker Smokeless tobacco: Never Used Substance and Sexual Activity Alcohol use: Not Currently Comment: once every 2 weeks non- Drug use: Never Sexual activity: None Other Topics Concern None Social History Narrative None Social Determinants of Health Social determinant risk not applicable to this patient. Infections Live with someone with or exposed to TB No History of STI's None Rash or viral illness since last menstruation No 2nd STI GBS 3rd STI Hx of Chicken Pox Yes Other infections Partner has hx of genital herpes No Genetics Age is > than 35y as of estimated date No Thalassemia No Neural Tube Defect No Congenital Heart Defect No Down Syndrome No Rony-Sachs No Erinn Disease No Sickle Cell Disease or Trait No Hemophilia, Thrombophilia No Muscular Dystrophy No Cystic Fibrosis No Kim's Chorea No Intellectual Disability/Autism Yes first cousin - born premature. has intellectual disability Metabolic Disorder No Recurrent Loss, or a Stillbirth No Inherited Genetic or Chromosomal Disorder No Illicit; Rec.drugs; Alcohol since last menses No Family History Problem Relation Age of Onset Cancer Father skin Cancer Sister 25 non hodgkin's lymphoma Outpatient Encounter Medications as of 01/06/2021 Medication Sig Dispense Refill SYNTHROID 25 MCG tablet progesterone 50 MG/ML OIL Probiotic CAPS 1 capsule MV-Min-Fe Fum-FA-DHA ( 1 PO) Take by mouth ESTRADIOL PO Take by mouth 2 times daily No facility-administered encounter medications on file as of 01/06/2021. Review of Systems Constitutional: Negative. HENT: Negative. Eyes: Negative. Respiratory: Negative. Cardiovascular: Negative. Gastrointestinal: Negative. Genitourinary: Negative. Musculoskeletal: Negative. Skin: Negative. Neurological: Negative. Endo/Heme/Allergies: Negative. Psychiatric/Behavioral: Negative. PHYSICAL EXAM: BP 108/66 Ht 165.1 cm Wt 58.2 kg (128 lb 3.2 oz) LMP 10/22/2020 BMI 21.33 kg/m Constitutional: General: She is active. HENT: Head: Atraumatic. Eyes: Extraocular Movements: EOM normal. Conjunctiva/sclera: Conjunctivae normal. Pulmonary: Effort: Pulmonary effort is normal. Abdominal: Comments: gravid uterus Musculoskeletal: Normal range of motion. Neurological: Mental Status: She is alert. X 3. Laboratory Test Results: No results found for any previous visit. Ultrasound Results: - Please see Ultrasound test for full details. Assessment/Plan: Racheal Merrill is a 30 y.o. at 10w6d with: Active Non-Hospital Problems Diagnosis Date Noted Monochorionic diamniotic twin gestation 01/06/2021 Ultrasound Report: - Monochorionic-diamniotic twin . - Concordant growth with CRL matching dates. - MAGDALENA is 07/17/2021. - Normal NT in each. - One large placenta is noted with a thin intervening membrane. Discussion and recommendations: - I discussed with the patient the general risks associated with monochorionic diamniotic twin gestation: Maternal risks include labor, delivery, PPROM, gestational hypertension, preeclampsia and eclampsia, acute fatty liver of , placenta previa, gestational diabetes, and nutritional deficiencies (vitamin B12 and Folic acid and iron). The risks include delivery, prematurity related complications (neurological and behavioral), alf pulmonary complications, FGR, malpresentation, operative delivery, increased risk for anomalies, and increased risk for aneuploidy. (more content not included)... Normal [facility] Surgical Pathology Depar tmenton 06-12-2019 [facility] Surgical Pathology Department Name RACHEAL MERRILL Pathologist: MIRNA JOSEPH DO Date of Procedure: 06/12/2019 Date Received: 06/13/2019 Date Reported 06/18/2019 Submitting Physician: ANGELA BRYANT MD Location: [facility] Copy To/Referring/Attending: MAGALIS DAMICO MD Other External # [id number] FINAL DIAGNOSIS A. ENDOMETRIAL POLYPS; POLYPECTOMY: -- FRAGMENTS OF ENDOMETRIAL POLYP AND LATE SECRETORY PHASE ENDOMETRIUM. Electronically Signed Out By MIRNA JOSEPH DO/CMB By the signature on this report, the individual or group listed as making the Final Interpretation/Diagnosis certifies that they have reviewed this case. Clinical History: Endometrial polyp Specimens Submitted As: A: POLYPS Other Case Numbers [id number] Gross Description: Received in formalin, labeled with the patient's name, hospital number, and polyps, are multiple irregular segments of rubbery soft tissue, aggregating to 1.4 x 1.0 x 0.4 cm. The specimen is entirely submitted in one cassette. JDC jdc/06/13/2019 Normal [facility] Comment on above: Performed By: #### [facility] #### [facility] Surgical Pathology Department [id number] [facility] [id number] Vital Signs Date Time Vital Sign Value Performing Clinician Suraj vega 03-07-2023 10:29-0400 Body height 165.[address] Magalis Damico Work Phone: [facility] 03-07-2023 10:26-0400 Body mass index (BMI) [Ratio] 21.4 kg/m2 Dr. Magalis Damico Work Phone: [facility] 03-07-2023 10:26-0400 Body weight 58.[address] Magalis Damico Work Phone: [facility] 03-07-2023 10:26-0400 Diastolic blood pressure 78 mm[Hg] Dr. Magalis Damico Work Phone: [facility] 03-07-2023 10:26-0400 Systolic blood pressure 125 mm[Hg] Dr. Magalis Damico Work Phone: [facility] 02-01-2023 09:41-0400 Body height 165.[address] Magalis Damico Work Phone: [facility] 02-01-2023 09:41-0400 Body mass index (BMI) [Ratio] 21.9 kg/m2 Dr. Magalis Damico Work Phone: [facility] 02-01-2023 09:41-0400 Body weight 59.[address] Magalis Damico Work Phone: [facility] 02-01-2023 09:41-0400 Diastolic blood pressure 66 mm[Hg] Dr. Magalis Damico Work Phone: [facility] 02-01-2023 09:41-0400 Systolic blood pressure 122 mm[Hg] Dr. Magalis Damico Work Phone: [facility] 12-09-2022 12:49-0400 Body mass index (BMI) [Ratio] 21.4 kg/m2 Dr. Magalis Damico Work Phone: [facility] 12-09-2022 12:49-0400 Body weight 58.[address] Magalis Damico Work Phone: [facility] 12-09-2022 12:49-0400 Diastolic blood pressure 73 mm[Hg] Dr. Magalis Damico Work Phone: [facility] 12-09-2022 12:49-0400 Systolic blood pressure 112 mm[Hg] Dr. Magalis Damico Work Phone: [facility] 11-26-2022 14:41-0400 Body temperature 97.5 [degF] Dr. Magalis Damico Work Phone: [facility] 11-26-2022 14:41-0400 Diastolic blood pressure 56 mm[Hg] Dr. Magalis Damico Work Phone: [facility] 11-26-2022 14:41-0400 Heart rate 63 /min Dr. Magalis Damico Work Phone: [facility] 11-26-2022 14:41-0400 Respiratory rate 16 /min Dr. Magalis Damico Work Phone: [facility] 11-26-2022 14:41-0400 SaO2% (BldA) [Mass fraction] 100 % Dr. Magalis Damico Work Phone: [facility] [facility] 11-26-2022 14:41-0400 Systolic blood pressure 99 mm[Hg] Dr. Magalis Damico Work Phone: [facility] 11-26-2022 10:25-0400 Body height 165.[address] Magalis Damico Work Phone: [facility] 11-26-2022 10:25-0400 Body mass index (BMI) [Ratio] 20.7 kg/m2 Dr. Magalis Damico Work Phone: [facility] 11-26-2022 10:25-0400 Body weight 56.[address] Magalis Damico Work Phone: [facility] 11-25-2022 10:47-0400 Body mass index (BMI) [Ratio] 21.2 kg/m2 Dr. Magalis Damico Work Phone: [facility] 11-25-2022 10:47-0400 Body weight 57.[address] Magalis Damico Work Phone: [facility] 11-25-2022 10:47-0400 Diastolic blood pressure 85 mm[Hg] Dr. Magalis Damico Work Phone: [facility] 11-25-2022 10:47-0400 Systolic blood pressure 133 mm[Hg] Dr. Magalis Daimco Work Phone: [facility] 08-05-2022 14:29-0500 Body height 165.[address] Magalis Damico Work Phone: [facility] 08-05-2022 14:27-0500 Body mass index (BMI) [Ratio] 21.6 kg/m2 Dr. Magalis Damico Work Phone: [facility] 08-05-2022 14:27-0500 Body weight 58.[address] Magalis Damico Work Phone: [facility] 08-05-2022 14:27-0500 Diastolic blood pressure 81 mm[Hg] Dr. Magalis Damico Work Phone: [facility] 08-05-2022 14:27-0500 Systolic blood pressure 126 mm[Hg] Dr. Magalis Damico Work Phone: [facility] 02-03-2022 11:36-0400 Body height 165.[address] Magalis Damico Work Phone: [facility] Work Phone: 02-03-2022 11:36-0400 Body mass index (BMI) [Ratio] 22.1 kg/m2 Dr. Magalis Damico Work Phone: [facility] Work Phone: 02-03-2022 11:36-0400 Body weight 60.[address] Magalis Damico Work Phone: [facility] Work Phone: 02-03-2022 11:36-0400 Diastolic blood pressure 60 mm[Hg] Dr. Magalis Damico Work Phone: [facility] Work Phone: 02-03-2022 11:36-0400 Systolic blood pressure 100 mm[Hg] Dr. Magalis Damico Work Phone: [facility] Work Phone: Encounters Encounter Date Encounter Type Care Provider Facility Start: 04-29-2025 End: 04-29-2025 ambulatory Magalis Damico Facility:[facility] Start: 03-26-2025 End: 03-26-[address] Anastasia Hartman DC -[facility] Work Phone: Start: 03-26-2025 End: 03-26-[address] Magalis Damico MD Work Phone: [facility] Start: 02-19-2025 End: 02-19-[address] Anastasia Hartman DC -[facility] Work Phone: Start: 02-19-2025 End: 02-19-[address] Magalis Damico MD Work Phone: [facility] Start: 01-22-2025 End: 01-22-[address] Anastasia Hartman DC -[facility] Work Phone: Start: 01-22-2025 End: 01-22-[address] Magalis Damico MD Work Phone: [facility] Start: 12-25-2024 End: 12-25-[address] Anastasia Hartman DC -[facility] Work Phone: Start: 12-25-2024 End: 12-25-[address] Magalis Damico MD Work Phone: [facility] Start: 11-27-2024 End: 11-27-[address] Anastasia Hartman DC -[facility] Work Phone: Start: 11-27-2024 End: 11-27-[address] Magalis Damico MD Work Phone: [facility] Work Phone: Start: 10-30-2024 End: 10-30-[address] Anastasia Hartman DC -[facility] Work Phone: Start: 10-30-2024 End: 10-30-2024 ambulatory Magalis Miedel Facility:[facility] Start: 10-01-2024 End: 10-01-[address] Anastasia Hartman DC -[facility] Work Phone: Start: 10-01-2024 End: 10-01-2024 ambulatory Magalis Miedel Facility:[facility] Start: 08-21-2024 End: 08-21-[address] Anastasia Hartman DC -[facility] Work Phone: Start: 08-21-2024 End: 08-21-2024 ambulatory Magalis Miedel Facility:[facility] Start: 07-19-2024 End: 07-19-2024 ambulatory Magalis Damico Facility:[facility] Start: 07-16-2024 Encounter for other preprocedural examination [facility] Start: 07-09-2024 End: 07-09-2024 ambulatory Magalis Miedel Facility:[facility] Start: 06-26-2024 ambulatory [facility]ility:[facility] Start: 06-26-2024 End: 06-26-2024 ambulatory [facility] Facility:[facility] Start: 06-25-2024 ambulatory Magalis Miedel Facility: [facility] Start: 06-08-2024 End: 06-08-2024 ambulatory Magalis Husseinedel Facility:[facility] Start: 05-29-2024 End: 05-29-2024 ambulatory Magalis Miedel Facility:[facility] Start: 05-15-2024 Encounter for gynecological examination (general) (routine) without abnormal findings [facility] Start: 05-15-2024 End: 05-15-2024 ambulatory Magalis Miedel Facility:[facility] Start: 05-04-2024 ambulatory Magalis Damico Facility: [facility] Start: 08-15-2023 End: 08-15-[address] Magalis Damico Work Phone: [facility] Work Phone: Start: 08-15-2023 End: 08-15-[address] [facility] Work [facility]: Start: 08-09-2023 End: 08-09-[address] Magalis Damico Work Phone: [facility] Work Phone: Start: 07-12-2023 End: 07-12-[address] Magalis Damico Work Phone: [facility] Work Phone: Start: 06-09-2023 End: 06-09-[address] Magalis Damico Work Phone: [facility] Work Phone: Start: 05-04-2023 End: 05-04-[address] Mag[facility] aDmico [facility]: Start: 05-02-2023 End: 05-02-[address] Magalis Damico Work Phone: [facility] Work Phone: Start: 05-02-2023 End: 05-02-[address] [facility] Work [facility]: Start: 04-18-2023 End: 04-18-[address] Magalis Damico Work Phone: [facility] Work Phone: Start: 03-28-2023 End: 03-28-[address] Magalis Damico Work Phone: [facility] Work Phone: Start: 03-21-2023 End: 03-21-[address] Mag[facility] Dam[facility]: Start: 03-08-2023 End: 03-08-[address] Magalis Damico Work Phone: [facility] Work Phone: Start: 03-07-2023 End: 03-07-[address] Magalis Damico Work Phone: [facility] Work Phone: Start: 02-23-2023 End: 02-23-[address] Magalis Damico Work Phone: [facility] Work Phone: Start: 02-23-2023 End: 02-23-[address] Mag[facility] Dam[facility]: Start: 02-16-2023 End: 02-16-[address] [facility]: Start: 02-01-2023 End: 02-01-[address] Magalis Damico Work Phone: [facility] Work Phone: Start: 01-28-2023 End: 01-28-[address] Magalis Damico Work Phone: [facility] Work Phone: Start: 01-28-2023 End: 01-28-[address] Magalis Damico Work Phone: [facility] Start: 12-09-2022 End: 12-09-[address] Magalis Damico Work Phone: [facility] Work Phone: Start: 11-26-2022 Non-patient / Non-visit Dr. Raad Damico Work Phone: [facility] Start: 11-26-2022 End: 11-26-2022 Admission to same day surgery center Dr[facility] Magalis [facility] Start: 11-26-2022 End: 11-26-[address] Magalis Damico Work Phone: [facility] Work Phone: Start: 11-25-2022 End: 11-25-[address] Magalis Damico Work Phone: [facility] Start: 10-27-2022 End: 10-27-[address] Magalis Damico Work Phone: [facility] Work Phone: Start: 10-27-2022 End: 10-27-[address] Mag[facility] Dam[facility] Start: 10-25-2022 End: 10-25-[address] Magalis Damico Work Phone: [facility] Work Phone: Start: 10-25-2022 End: 10-25-[address] Magalis Damico Work Phone: [facility] Start: 08-05-2022 End: 08-05-[address] Magalis Damico Work Phone: [facility] Start: 07-22-2022 End: 07-22-2022 ambulatory [facility] Work Phone: Start: 07-22-2022 End: 07-22-2022 Patient encounter procedure [facility] Start: 02-03-2022 End: 02-03-[address] Magalis Damico Work Phone: [facility] Start: 06-12-2019 End: 06-12-2019 Patient encounter procedure ANGELA BERRY [facility] Start: 06-06-2019 Patient encounter procedure RAHEEM Rao NP [facility] Procedures Date Procedure Procedure Detail Performing Clinician Start: 11-26-2022 Dilation and curetta ge of uterus Dr. Magalis Damico Work Phone: H/O: section History of C-sectio n Dr. Magalis Damico Work Phone: H/O: surgery Status post dila tion and curettage Dr. Magalis Damico Work Phone: Plan of Treatment Date Care Activity Detail Author Start: 11-26-2022 Ambulation without limitation [facility] Start: 11-26-2022 Medical regimen orde rs management [facility] Start: 11-26-[address] [facility] Start: 11-26-2022 Patient discharge [facility] Start: 11-26-2022 Procedure discontinued [facility] Start: 11-26-2022 Taking patient vital signs [facility] Start: 11-26-2022 Vital signs measurements [facility] Start: 11-26-2022 [facility] Start: 11-26-2022 Anesthesia incomplete/missed ANESTH INC/MISSED AB PROC [facility] Start: 06-02-2023 Tx missed f irst trimester surgical CARE OF MISCARRIAGE [facility] Start: 11-26-2022 Admission procedure [facility] Start: 11-26-2022 [facility] Start: 02-03-2022 Liquid based cervica l cytology screening [facility] Work Phone: Path report.final Dx Spec [facility] Work Phone: Patient referral [facility] Work Phone: Immunizations Immunization Date Immunization Notes Care Provider Fa cility 05-22-2021 Covid (Moderna) Dr. Magalis ibarra Work Phone: [facility] 05-05-2021 tetanus toxoid, redu mendez diphtheria toxoid, and acellular pertussis vaccine, adsorbed Dr. Magalis Damico Work Phone: [facility] 03-30-[address] Magalis Damico Work Phone: [facility] 10-23-2020 Covid (Moderna) Dr. Magalis ibarra Work Phone: [facility] 09-25-2020 CovClarizen (Moderna) Dr. Magalis Parsons iedel Work Phone: [facility] Payers Date Payer Category Payer Self-pay [id number] 1990 Unknown [id number] 2.16.84 [id number] 1961 Unknown [id number] Unknown [id number] 2.16.8 [id number] Unknown [id number] 2.16.8 [id number] Unknown [id number] 2.16.8 [id number] Unknown [id number] 2.16.8 [id number] Unknown [id number] 2.16.8 [id number] Unknown [id number] 2.16.8 [id number] Unknown [id number] 2.16.8 [id number] Unknown [id number] 2.16.8 [id number] Unknown [id number] 2.16.8 [id number] Unknown [id number] 2.16.8 [id number] Unknown [id number] 2.16.8 [id number] Unknown [id number] 2.16.8 [id number] Unknown [id number] 2.16.8 [id number] Unknown [id number] 2.16.8 [id number] Unknown [id number] 2.16.8 [id number] Unknown [id number] 2.16.8 [id number] Unknown [id number] 2.16.8 [id number] Unknown [id number] 2.16.8 [id number] Social History Date Type Detail Facility Start: 02-03-2022 End: 08-09-2023 Tobacco smoking status NHIS Unknown if ever smoked [facility] Start: 1990 Sex Assigned At Female [facility] Start: 06-19-2024 Tobacco smoking stat us NHIS Never smoked tobacco (finding) [facility] Sex Female [facility] Goals Date Patient Goal Desired Activity /State Mental Status Date Assessment Result Facility 11-26-2022 Cognitive function Voice/Name [facility] Work Phone: Clinical Notes 01-06-2021 to 11-27-2024 Note Date & Type Note Facility 11-27-2024 Evaluation note Diagnosis Onset Date Resolution Segmental and somatic dysfunction of cervical region acute November 27, 2024 2 :21pm Segmental and somatic dysfunction of lumbar region acute November 27, 2024 2 :21pm Segmental and somatic dysfunction of thoracic region acute November 27, 2024 2 :21pm Scoliosis of lumbar spine chronic November 27, 2024 2 :21pm Back pain noneactive November 27, 2024 2:21pm Segmental and somatic dysfunction of cervical region acute December 25, 2024 8 :24am Segmental and somatic dysfunction of lumbar region acute December 25, 2024 8 :24am Segmental and somatic dysfunction of thoracic region acute December 25, 2024 8 :24am Scoliosis of lumbar spine chronic December 25, 2024 8 :24am Segmental and somatic dysfunction of cervical region acute January 22, 2025 8:26am Segmental and somatic dysfunction of lumbar region acute January 22, 2025 8:26am Segmental and somatic dysfunction of thoracic region acute January 22, 2025 8:26am Scoliosis of lumbar spine chronic January 22, 2025 8:26am Segmental and somatic dysfunction of cervical region acute February 19 4:02pm Segmental and somatic dysfunction of lumbar region acute February 19 4:02pm Segmental and somatic dysfunction of thoracic region acute February 19 4:02pm Scoliosis of lumbar spine chronic February 19 4:02pm Segmental and somatic dysfunction of cervical region acute March 26, 2025 4:03pm Segmental and somatic dysfunction of lumbar region acute March 26, 2025 4:03pm Segmental and somatic dysfunction of thoracic region acute March 26, 2025 4:03pm Scoliosis of lumbar spine chronic March 26, 2025 4:03pm Back pain noneactive February 4:03pm [facility] Work Phone: 1(521) 487-810405-06-2025 Evaluation note* Diagnosis Onset Date Resolution Status Admit Date Segmental and somatic dysfunction of cervical region acute October 30, 2024 4: 00pm Segmental and somatic dysfunction of lumbar region acute October 30, 2024 4:00pm Segmental and somatic dysfunction of thoracic region acute October 30, 2024 4: 00pm Scoliosis of lumbar spine chronic October 30, 2024 4:00pm Segmental and somatic dysfunction of cervical region acute November 27, 2024 2 :21pm Segmental and somatic dysfunction of lumbar region acute Nov 2:21pm Segmental and somatic dysfunction of thoracic region acute November 27, 2024 2 :21pm Scoliosis of lumbar spine chronic November 27, 2024 2:21pm Back pain noneactive November 27, 2024 2:21pm Segmental and somatic dysfunction of cervical region acute December 25, 2024 8 :24am Segmental and somatic dysfunction of lumbar region acute Dec 8:24am Segmental and somatic dysfunction of thoracic region acute December 25, 2024 8 :24am Scoliosis of lumbar spine chronic December 25, 2024 8:24am Segmental and somatic dysfunction of cervical region acute January 22, 2025 8:26am Segmental and somatic dysfunction of lumbar region acute Dec 8:26am Segmental and somatic dysfunction of thoracic region acute January 22, 2025 8:26am Scoliosis of lumbar spine chronic January 22, 2025 8:26am Segmental and somatic dysfunction of cervical region acute February 19 4:02pm Segmental and somatic dysfunction of lumbar region acute Jan 4:02pm Segmental and somatic dysfunction of thoracic region acute February 19 4:02pm Scoliosis of lumbar spine chronic February 19, 2025 4:02pm Back pain noneactive February 19, 2 025 4:02pm [facility] Work Phone: 1([phone]) 616-910304-07-2025 Evaluation note* Diagnosis Onset Date Resolution Status Admit Date Segmental and somatic dysfunction of cervical region acute October 01, 2024 4:00pm Segmental and somatic dysfunction of lumbar region acute Apr 2024 4:00pm Segmental and somatic dysfunction of thoracic region acute October 01, 2024 4:00pm Back pain noneactive October 01 4:00pm Segmental and somatic dysfunction of cervical region acute October 30, 2024 4: 00pm Segmental and somatic dysfunction of lumbar region acute October 30, 2024 4:00pm Segmental and somatic dysfunction of thoracic region acute October 30, 2024 4: 00pm Scoliosis of lumbar spine chronic October 30, 2024 4:00pm Segmental and somatic dysfunction of cervical region acute November 27, 2024 2 :21pm Segmental and somatic dysfunction of lumbar region acute Nov 2:21pm Segmental and somatic dysfunction of thoracic region acute November 27, 2024 2 :21pm Scoliosis of lumbar spine chronic November 27, 2024 2:21pm Back pain noneactive November 27, 2024 2:21pm Back pain noneactive December 25, 2024 8:24am [facility] Work Phone: [phone] Evaluation note* Diagnosis Onset Date Resolution Status Admit Date Segmental and somatic dysfunction of cervical region acute October 01, 2024 4:00pm Segmental and somatic dysfunction of lumbar region acute Apr 2024 4:00pm Segmental and somatic dysfunction of thoracic region acute October 01, 2024 4:00pm Back pain noneactive October 01 4:00pm Segmental and somatic dysfunction of cervical region acute October 30, 2024 4: 00pm Segmental and somatic dysfunction of lumbar region acute October 30, 2024 4:00pm Segmental and somatic dysfunction of thoracic region acute October 30, 2024 4: 00pm Scoliosis of lumbar spine chronic October 30, 2024 4:00pm Segmental and somatic dysfunction of cervical region acute November 27, 2024 2 :21pm Segmental and somatic dysfunction of lumbar region acute Nov 2:21pm Segmental and somatic dysfunction of thoracic region acute November 27, 2024 2 :21pm Scoliosis of lumbar spine chronic November 27, 2024 2:21pm Back pain noneactive November 27, 2024 2:21pm Segmental and somatic dysfunction of cervical region acute December 25, 2024 8 :24am Segmental and somatic dysfunction of lumbar region acute Dec 8:24am Segmental and somatic dysfunction of thoracic region acute December 25, 2024 8 :24am Scoliosis of lumbar spine chronic December 25, 2024 8:24am Segmental and somatic dysfunction of cervical region acute January 22, 2025 8:26am Segmental and somatic dysfunction of lumbar region acute Dec 8:26am Segmental and somatic dysfunction of thoracic region acute January 22, 2025 8:26am Back pain noneactive January 22 8:26am [facility] Work Phone: [phone] Evaluation note* Diagnosis Onset Date Resolution Status Admit Date Segmental and somatic dysfunction of cervical region acute August 21, 2 3:59pm Segmental and somatic dysfunction of lumbar region acute Jul 3:59pm Segmental and somatic dysfunction of thoracic region acute August 21, 2 025 3:59pm Scoliosis of lumbar spine chronic August 21, 2024 3:59pm Segmental and somatic dysfunction of cervical region acute October 01, 2024 4:00pm Segmental and somatic dysfunction of lumbar region acute Sep 4:00pm Segmental and somatic dysfunction of thoracic region acute October 01, 2024 4:00pm Back pain noneactive October 01 4:00pm Segmental and somatic dysfunction of cervical region acute October 30, 2024 4: 00pm Segmental and somatic dysfunction of lumbar region acute October 30, 2024 4:00pm Segmental and somatic dysfunction of thoracic region acute October 30, 2024 4: 00pm Scoliosis of lumbar spine chronic October 30, 2024 4:00pm Back pain noneactive November 27, 2024 2:21pm [facility] Work Phone: [phone]) 241-497612-31-2024 [facility] Medical Records Department [address] [place] [id number] History Physical Exam 06/26/24 1510 MR#: [id number] Acct: [id number] Name: RACHEAL MERRILL Rep #: [id number] : 1990 34 From: Andree Turk DO PCP: Dr. Magalis Damico MD Status:[facility] Location: [place] [address] History and Physical Date of Admission: 06/26/24 Intake Vital Signs 05/15/2414:59 06/08/2416:04 06/08/2416:04 Height 5 ft 5 in 5 ft 5 in 5 ft 5 in Weight: 130 lb 2 oz BMI 21.6 BP 129/84 H Intake Visit Reasons: diag. lap possible lysis of adhesions Seam Press Operator Required: No Is patient in pain?: No Allergies No Known Allergies Allergy (Verified 06/08/24 16:03) Medications ???Medication ???Instructions ???Recorded ???Confirmed ???Type vitamins no.119-iron 1 tab PO DAILY Check with primary 05/05/21 06/08/24 History fumarate 29 mg-folic acid 1 mg doctor tablet Saccharomyces boulardii 250 mg 250 mg PO BID 02/03/22 06/08/24 History capsule (Daily Probiotic (S. boulardii)) cholecalciferol (vitamin D3) 50 50 mcg PO DAILY 02/03/22 06/08/24 History mcg (2,000 unit) capsule ascorbate calcium (vitamin C) 500 500 mg PO DAILY 08/05/22 06/08/24 History mg tablet magnesium citrate 100 mg tablet 100 mg PO DAILY 08/05/22 06/08/24 History levothyroxine 50 mcg capsule 50 mcg PO DAILY 03/07/23 06/08/24 History citalopram 10 mg tablet 10 mg PO QDAY #90 tabs 05/15/24 06/08/24 Rx citalopram 20 mg tablet 20 mg PO DAILY #90 TABLETS 05/15/24 06/08/24 Rx Post menopausal: No Patient : No : [facility] History Wears contact lenses Wears glasses Non-smoker Monochorionic diamniotic twin gestation Infertility Thyroid disorder Abnormal glucose affecting Surgical History Status post dilation and curettage Status post Delivery by section History of gynecologic surgery History of wisdom tooth extraction, class II edentulism Family History Father Cancer skinSister Cancer hodgkins lymphoma 2010 Social History Smoking Status: Never smoker alcohol intake: current details: social substance use type: does not use caffeine: Yes what type of physical activity do you participate in: walking and yoga frequency: 1-2 times per week seatbelt use: always do you feel safe at home: Yes additional social history: 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 She has tried multiple rounds of IVF, most recently in February and lost the embryo. 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 Fyae is recommending a diagnostic laparoscopy due to symptoms of pelvic pain and cramping between cycles. She also is feeling more tearful lately and wonders if can have citalopram increased to 30 mg daily. History 3 Elective abortions Hx Para 1 Spontaneous abortions 2 Hx # Term Pregnancies Ectopic pregnancies Hx # Pregnancies Multiple births 1 # of living children 1 Past Pregnancies Del. Date Name GA/Weeks Outcome Route Bth Weight Infant Gen Labor Lgth Anesthesia Del Locatn Provider FOB 06/21/21 Aria (may) 34 live - 4lbs 10oz Female [facility] Dr. Duarte 06/21/21 Ck 34 live - 5lbs 3oz [facility] Dr. Turk Delivery Date: 06/21/21 Last Updated by: Magalis Noyola PPROM 34 weeks, mono di twins, stat LTCS len 6cm, ph 7.2 resuscitation, 2 days Delivery Date: 06/21/21 Last Updated by: Magalis Noyola PPROM 34 weeks, mono di twins, stat LTCS len baby A, 6cm, ph 7.2 ROS Const ROS Unobtainable: All systems reviewed are unremarkable except as noted in H Resp Resp: Reports system reviewed and no additional complaints, except as documented; Denies cough GI GI: Reports as per HPI Psych Psych: Reports system reviewed and no additional complaints, except as documented Exam Const General: cooperative, healthy appearing, comfortable and no acute distress Resp Effort Inspection: normal respiratory effort Skin General: no rashes or lesions noted Psych Appearance: grossly normal Speech and Movement: speech and movement normal Coding Level of Care Code Off vis,est,level 4 Diagnoses Pelvic pain R10.2 Infertility Assessment and Plan Assessment and Plan (1) Pelvic pain: Status: Acute (2) Infertility: Status: Acute Comment: HX IVF Plan After (more content not included)...[facility]06-02-[address] Martinez [facility] November 26, 2022 12:42pm Note Date/Time November 26, 2022 12:40 pm [facility] Medical Records Department [address] [place] [address] Instructions for Home/Discharge Instructions 11/26/22 1240 MR#: [id number] Acct: [id number] Name: RACHEAL MERRILL Rep #:[id number] : 1990 32 From: Andree Turk DO PCP: Dr. Magalis Damico MD Status:[facility] Discharge Instructions Diet Discharge Diet: No restrictions Activity Discharge Activity: Return to Normal Activity, May Shower and May Take a Tub Bath (after 1 week) May resume sexual activity in: 1-2 weeks Weight Bearing Status: Weight bearing as tolerated Lifting Restrictions: none Dressing / Incision Call your doctor if you observe: Fever of 101 or Higher, Using more than 1 pad per hour, Shortness of breath and Uncontrolled pain Follow Up Care Please Follow Up With: Andree Turk DO When: Call [phone] to schedule appointment. Test Results: Test results from this visit will be discussed in further detail at your follow- up appointment, if applicable. Discharge Plan Admission Primary Reason for Your Visit: dilation and curettage Attending Provider: Andree Turk Primary Care Provider: Magalis Damico Discharge Orders/Prescriptions Prescriptions: New ibuprofen 800 mg tablet 800 mg PO Q8H PRN (Reason: pain) Qty: 30 0RF hydrocodone-acetaminophen 5-325 mg tablet 1 tab PO Q4H PRN (Reason: pain) 3 Days Qty: 5 0RF Continued PNV 119-iron fum-folic acid 29 mg iron- 1 mg tablet 1 tab PO DAILY cholecalciferol (vitamin D3) 50 mcg (2,000 unit) capsule 50 mcg PO DAILY Saccharomyces boulardii [Daily Probiotic (S. boulardii)] 250 mg capsule 250 mg PO BID ascorbate calcium (vitamin C) 500 mg tablet 500 mg PO DAILY magnesium citrate 100 mg tablet 100 mg PO DAILY citalopram 20 mg tablet 20 mg PO DAILY Rx Instructions: TAKE 1 TABLET DAILY levothyroxine [Synthroid] 25 mcg tablet See Rx Instructions .ROUTE .COMPLEX Qty: 45 3RF Dose Instruction: TAKE 1/2 TABLET DAILY Rx Instructions: TAKE 1/2 TABLET DAILY Referrals / Follow Up: Magalis Damico MD [Primary Care Provider] - Disposition Disposition (needs filled in before D/C Order can be placed): Home, Self Care 11/26/22 1242<Electronically signed by Andree Turk DO>Andree Turk DO CC: Dr. Magalis Damico MD ~ Signed [facility] Work Phone: 1(237) 464-354506-02-2023 Procedure [facility] 11-26-2022 History and physical note Author Dr. Martinez [facility] November 26, 2022 10:43am Note Date/Time November 26, 2022 10:43 am [facility] Medical Records Department [address] [place] [address] History & Physical Exam 11/26/22 1043 MR#: [id number] Acct: [id number] Name: RACHEAL MERRILL Rep #:[id number] : 1990 32 From: Andree Turk DO PCP: Dr. Magalis Damico MD Status:[facility] Location: [place] [address] History and Physical Date of Admission: 11/26/22 Intake Vital Signs ? 11/25/2309:34B 11/25/2309:47 Height 5 ft 5 in 5 ft 5 in Weight: ? 127 lb 4 oz BMI ? 21.2 BP ? 133/85 H Intake Visit Reasons:?NOB LMP ? *ivf pt* Seam Press Operator Required: No Is patient in pain?: No Allergies No Known Allergies Allergy (Verified 11/25/22 10:34) Medications vitamins no.119-iron fumarate 29 mg-folic acid 1 mg tablet 1 tab PO DAILY Check with primary doctor 05/05/21 [History Confirmed 11/25/22] Saccharomyces boulardii 250 mg capsule (Daily Probiotic (S. boulardii)) 250 mg PO BID 02/03/22 [History Confirmed 11/25/22] cholecalciferol (vitamin D3) 50 mcg (2,000 unit) capsule 50 mcg PO DAILY 02/03/22 [History Confirmed 11/25/22] ascorbate calcium (vitamin C) 500 mg tablet 500 mg PO DAILY 08/05/22 [History Confirmed 11/25/22] magnesium citrate 100 mg tablet 100 mg PO DAILY 08/05/22 [History Confirmed 11/25/22] citalopram 20 mg tablet See Rx Instructions .Route .COMPLEX #90 tabs 11/01/22 [Rx Confirmed 11/25/22] levothyroxine 25 mcg tablet (Synthroid) See Rx Instructions .Route .COMPLEX #45 tabs 11/01/22 [Rx Confirmed 11/25/22] estradiol 0.5 mg tablet (Estrace) 0.5 mg PO BID 11/25/22 [History Confirmed 11/25/22] progesterone 50 mg/mL intramuscular oil 5 mg IM DAILY 11/25/22 [History Confirmed 11/25/22] Last Menstrual Period: 10/14/22 Zika: Zika virus screening: Negative : No PFSH PFSH Medical History? Abnormal glucose affecting Infertility Monochorionic diamniotic twin gestation Thyroid disorder Surgical History? Delivery by section History of gynecologic surgery History of wisdom tooth extraction, class II edentulism Status post Family History? Father Cancer ?? ? skinSister Cancer ?? ? hodgkins lymphoma 2011 Social History? Smoking Status:? Never smoker alcohol intake:? current details:? social substance use type:? does not use caffeine:? Yes what type of physical activity do you participate in:? walking frequency:? 5-6 times per week seatbelt use:? always do you feel safe at home:? Yes additional social history:? 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 ? ? 3 ? Elective abortions ? Hx Para ? ? ? 1 ? Spontaneous abortions ? ? ? 1 Hx # Term Pregnancies ? Ectopic pregnancies ? Hx # Pregnancies ? Multiple births ? ? ? 1 ? # of living children ? ? ? 1 Past Pregnancies Del. Date Name GA/Weeks Outcome Route Bth Weight Infant Gen Labor Lgth Anesthesia Del Locatn Provider FOB 06/21/21 Arikip (may) 34 live - 4lbs 1 0oz Female ? ? [facility] Dr. Duarte ? 06/21/21 Ck 34 live - 5lbs 3 oz ? ? ? [facility] Dr. Turk ? Delivery Date: 06/21/21? Last Updated by: Magalis Noyola ? ? ? PPROM 34 weeks, mono di twins, stat LTCS len 6cm, ph 7.2 resuscitation, 2 days Delivery Date: 06/21/21? Last Updated by: Magalis Noyola ? ? ? PPROM 34 weeks, mono di twins, stat LTCS len baby A, 6cm, ph 7.2 HPI NOB LMP ? *ivf pt* Details: RACHEAL MERRILL is a 32 year old who presents for New OB visit. OB Visit MAGDALENA Calculator ? Estimated Delivery Date Method Current WG Current Estimate 07/02/23 Conception 8w 5d Initial Weight:?Not Recorded Date -?-?-?-?-?-?-?-?-?-?-?-?- EGA Weight BP Urine Prot -?-?-?-?-?-?-?-?-?-?-?-?- Glucose FHR FuHt Pres Dilation -?-?-?-?-?-?-?-?-?-?-?-?- Effaced St Visit Note 11/25/22-?-?-?-?-?-?-?-?-?-?-?-?- 8w 5d 127 lb 4 oz 133/85 -?-?-?-?--?-?-?-?-?-?-?-?- ? -?-?-?-?-?-?-?-?-?-?-?-?- ? ? JV- mono/di appearing gestation, no heart tones on either fetus. Both measuring 9 weeks. pt tearful. D&C offered. will plan for tomorrow if possible. Menstrual History Last Menstrual Period: 10/14/22 ACOG First Trimester First Trimester: Discussed ROS Const All systems reviewed & are unremarkable except as noted in H Resp Reports system reviewed and no additional complaints, except as documented and Denies cough GI Reports as per HPI Psych Reports system reviewed and no additional complaints, except as documented Exam Const General: cooperative, healthy appearing, comfortable and no acute distress Resp Effort & Inspection: normal respiratory effort General: bimanual renal exam normal bilaterally External Female Exam: normal appearance of the urethra Urethra: normal appearance of the urethra Speculum Exam - Vagina: normal appearance of the vagina Speculum Exam - Cervix: normal appearance of the cervix Bimanual Exam- Adnexa, other: normal adnexae and normal Pelvic Support: normal Skin General: no rashes or lesions noted Psych Appearance: grossly normal Speech and Movement: speech and movement normal Coding Level of Care Code Off vis,est,level 4 Diagnoses Twin in first trimester? O30.001 History of ? Z98.891 ? Z34.90 Supervision of elderly multigravida in first trimester (>=35 years old at time of delivery)? O09.521 Depression? F32.A Infertility? of child? 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 O02.1 Assessment and Plan Assessment and Plan (1) Twin in first trimester: ?Status:?Acute ?Comment: embryo transfer split (2) History of : ?Status:?Acute (3) : ?Status:?Acute (4) Supervision of elderly multigravida in first trimester (>=35 years old at time of delivery): ?Status:?Acute ?Comment: Whitney (dec), [place] Spouse: Rachid (5) Depression: ?Status:?Acute ?Comment: [place]. (6) Infertility: ?Status:?Acute ?Comment: HX IVF (7) of child: ?Status:?Acute ?Comment: Whitney, lost on day 2 of life.? 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 (9) Missed : ?Status:?Acute ?Plan: After discussing the patient's diagnosis and treatment plan options, patient wishes to proceed with surgical management.? I have discussed with the patient the risks, benefits, and alternatives of the procedure which include but are notlimited to risks of anesthesia, bleeding, infection, possible damage to bowel, bladder, or surrounding vasculature which could lead to additional surgery to evaluate any complications.? Patient agrees to procedure and wishes to proceed.?ACOG/uptodate references given for additional information regarding procedure.? plan for suction dilation and curettage 11/26/22 1043 <Electronically signed by Andree Turk DO> Cosigner Signature (if applicable): CC: Dr. Magalis Damico MD; Dr. Andree Turk DO~ Signed [facility] Work Phone: 1(190) 171-789407-13-[address] Bryant Reason for Consult Racheal Merrill (Liz) was referred for an ultrasound evaluation and genetic counseling by Dr. Angela Bryant in order to determine the chorionicity [...] of 07/29/2021. Unable to determine chorionicity. 2. [place]-rump length measurements are consistent with supplied dating [...] Screening/Testing Preimplantation Genetic Testing for Aneuploidy at [facility] (date of biopsy: 04/14/2019) - Gender not reported below since Kat and her did not want to know this information at the time of the embryo transfer. ET1: Abnormal: +9p; D6 biopsy; Jesus score ranking: N/A ET2: Normal; D6 biopsy; Jesus score rankin ET3: Abnormal: -22; D6 biopsy; Jesus score ranking: N/A Preimplantation Genetic Testing for Aneuploidy at 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: 1 in 200 ( Non-Citizen Of [place]: 95% detection) Residual carrier risk for hereditary fructose intolerance: 1 in 1,900 ( Non-Citizen Of [place]: 96% detection) Residual carrier risk for Zellweger syndrome, [id number]: 1 in 6,300 ( detection rate: 80%) Spouse's Prior Screening/Testing Sema4 Expanded Carrier Screen, 283 Genes (02/01/2019) - Positive 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 3 copies of the GNL43J4 gene detected One copy of the c.952C>T (p.Q318X) pathogenic variant in the PHT76I8 gene 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 One copy of the c.448G>C (p.A150P) pathogenic variant in the ALDOB gene Carrier for Zellweger syndrome, [id number] One copy of the c.764dupA (p.B437JmhU478) pathogenic variant in the PEX 10 gene Negative for all other genes tested Residual carrier risk for very long chain acyl-CoA dehydrogenase deficiency: 1 in 920 ( Non-Citizen Of [place]: 88% detection) and Family History History: Chemic (more content not included)...[facility] Onset Date Resolution Status Depression acute Infertility acute Encounter for routine gynecological examination noneactive [facility] Work Phone: Evaluation noteNo assessment information available [facility] Work Phone: Evaluation note* Diagnosis Onset Date Resolution Status of child acute Depression acute Infertility acute [facility] Work Phone: Evaluation note* Diagnosis Onset Date Resolution Status of child acute Depression acute Infertility acute of child acute Depression acute History of acute Infertility acute Long-chain acyl-CoA dehydrogenase deficiency acute Missed acute acute [id number] acute Twin in first trimester acute of child acute Depression acute History of acute Infertility acute Long-chain acyl-CoA dehydrogenase deficiency acute Missed acute acute [id number] acute Twin in first trimester acute [facility] Work Phone: Evaluation note* Diagnosis Onset Date Resolution Status of child acute Depression acute History of acute Infertility acute Long-chain acyl-CoA dehydrogenase deficiency acute Missed acute acute [id number] acute Twin in first trimester acute of child acute Depression acute History of acute Infertility acute Long-chain acyl-CoA dehydrogenase deficiency acute Missed acute acute [id number] acute Twin in first trimester acute Missed acute Neck pain acute Segmental and somatic dysfunction of cervical region acute Segmental and somatic dysfunction of lumbar region acute Segmental and somatic dysfunction of thoracic region acute [facility] Work Phone: Evaluation note* Diagnosis Onset Date Resolution Status Neck pain acute Segmental and somatic dysfunction of cervical region acute Segmental and somatic dysfunction of lumbar region acute Segmental and somatic dysfunction of thoracic region acute Encounter for routine gynecological examination noneactive Neck pain acute Segmental and somatic dysfunction of cervical region acute Segmental and somatic dysfunction of lumbar region acute Segmental and somatic dysfunction of thoracic region acute Segmental and somatic dysfunction of cervical region acute Segmental and somatic dysfunction of lumbar region acute Segmental and somatic dysfunction of thoracic region acute Back pain noneactive Segmental and somatic dysfunction of cervical region acute Segmental and somatic dysfunction of lumbar region acute Segmental and somatic dysfunction of thoracic region acute Back pain noneactive [facility] Work Phone: Evaluation note* Diagnosis Onset Date Resolution Status Segmental and somatic dysfunction of cervical region acute Segmental and somatic dysfunction of lumbar region acute Segmental and somatic dysfunction of thoracic region acute Back pain noneactive Segmental and somatic dysfunction of cervical region acute Segmental and somatic dysfunction of lumbar region acute Segmental and somatic dysfunction of thoracic region acute Back pain noneactive Segmental and somatic dysfunction of cervical region acute Segmental and somatic dysfunction of lumbar region acute Segmental and somatic dysfunction of thoracic region acute Back pain noneactive [facility] Work Phone: Reason for referral (narrative)No reason for referral information availableDickeyville Medical Services Work Phone: Summary Purpose Family History No Family History Records Found Relationship Condition Age at Onset Recorded Date/T uw father Malignant neoplasm Unknown sister Malignant neoplasm Unknown Advance Directives No Advanced Directives Records Found Advance Directive Response Recorded Date/ Time Living Will Yes June 25, 021 4:42pm Power of Manager Integrated Yes June 25, 2021 4:42pm Advance Directive Response Recorded Date/ Time Living Will Yes June 25 021 3:42pm Power of Manager Integrated Yes June 25, 2021 3:42pm Advance Directive Response Recorded Date/ Time Name of Medical Power of Manager Integrated Rachid Merrill November 25, 2022 2:43pm Living Will Yes November 25, 2022 2 :43pm Power of Manager Integrated Yes November 25, 2022 2:43pm Advance Directive Response Recorded Date/ Time Living Will Yes November 25, 2022 1 :43pm Power of Manager Integrated Yes November 25, 2022 1:43pm Chief Complaint and Reason for Visit Chief Complaint 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 *ivf pt* Reason for Visit of child Depression Infertility of child Depression History of Infertility Long-chain acyl-CoA dehydrogenase deficiency Missed [id number] Twin in first trimester of child Depression History of Infertility Long-chain acyl-CoA dehydrogenase deficiency Missed [id number] Twin in first trimester Chief Complaint NOB LMP ? *ivf pt* 2 WK D&C EST CARE Reason for Visit of child Depression History of Infertility Long-chain acyl-CoA dehydrogenase deficiency Missed [id number] Twin in first trimester of child Depression History of Infertility Long-chain acyl-CoA dehydrogenase deficiency Missed [id number] Twin in first trimester Missed Neck pain Segmental and somatic dysfunction of cervical region Segmental and somatic dysfunction of lumbar region Segmental and somatic dysfunction of thoracic region Chief Complaint NOB LMP ? 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) Back pain E.03 Back pain Back pain Reason for Visit Neck pain Segmental and somatic dysfunction of cervical region Segmental and somatic dysfunction of lumbar region Segmental and somatic dysfunction of thoracic region Encounter for routine gynecological examination Neck pain Segmental and somatic dysfunction of cervical region Segmental and somatic dysfunction of lumbar region Segmental and somatic dysfunction of thoracic region Segmental and somatic dysfunction of cervical region Segmental and somatic dysfunction of lumbar region Segmental and somatic dysfunction of thoracic region Back pain Segmental and somatic dysfunction of cervical region Segmental and somatic dysfunction of lumbar region Segmental and somatic dysfunction of thoracic region Back pain Chief Complaint Back pain Back pain Back pain Reason for Visit Segmental and somati c dysfunction of cervical region Segmental and somatic dysfunction of lumbar region Segmental and somatic dysfunction of thoracic region Back pain Segmental and somatic dysfunction of cervical region Segmental and somatic dysfunction of lumbar region Segmental and somatic dysfunction of thoracic region Back pain Segmental and somatic dysfunction of cervical region Segmental and somatic dysfunction of lumbar region Segmental and somatic dysfunction of thoracic region Back pain Chief Complaint Admit Date BACK PAIN August 21, 2024 3:59pm BACK PAIN October 01, 2024 4:00 pm BACK PAIN October 30, 2024 4:00pm BACK PAIN November 27, 2024 2:21p m Reason for Visit Admit Date Segmental and somatic dysfunction of cer vical region August 21, 2024 3:59pm Segmental and somatic dysfunction of lum bar region August 21, 2024 3:59pm Segmental and somatic dysfunction of tho racic region August 21, 2024 3:59pm Scoliosis of lumbar spine August 21, 2024 3:59pm Segmental and somatic dysfunction of cer vical region October 01, 2024 4:00pm Segmental and somatic dysfunction of lum bar region October 01, 2024 4:00pm Segmental and somatic dysfunction of tho racic region October 01, 2024 4:00pm Back pain October 01, 2024 4:00 pm Segmental and somatic dysfunction of cer vical region October 30, 2024 4:00pm Segmental and somatic dysfunction of lum bar region October 30, 2024 4:00pm Segmental and somatic dysfunction of tho racic region October 30, 2024 4:00pm Scoliosis of lumbar spine October 30, 2024 4:00pm Back pain November 27, 2024 2:21p m Chief Complaint Admit Date BACK PAIN October 01, 2024 4:00 pm BACK PAIN October 30, 2024 4:00pm BACK PAIN November 27, 2024 2:21p m BACK PAIN December 25, 2024 8:24a m Reason for Visit Admit Date Segmental and somatic dysfunction of cer vical region October 01, 2024 4:00pm Segmental and somatic dysfunction of lum bar region October 01, 2024 4:00pm Segmental and somatic dysfunction of tho racic region October 01, 2024 4:00pm Back pain October 01, 2024 4:00 pm Segmental and somatic dysfunction of cer vical region October 30, 2024 4:00pm Segmental and somatic dysfunction of lum bar region October 30, 2024 4:00pm Segmental and somatic dysfunction of tho racic region October 30, 2024 4:00pm Scoliosis of lumbar spine October 30, 2024 4:00pm Segmental and somatic dysfunction of cer vical region November 27, 2024 2:21pm Segmental and somatic dysfunction of lum bar region November 27, 2024 2:21pm Segmental and somatic dysfunction of tho racic region November 27, 2024 2:21pm Scoliosis of lumbar spine November 27, 2024 2:21pm Back pain November 27, 2024 2:21p m Back pain December 25, 2024 8:24a m Chief Complaint Admit Date BACK PAIN October 01, 2024 4:00 pm BACK PAIN October 30, 2024 4:00pm BACK PAIN November 27, 2024 2:21p m BACK PAIN December 25, 2024 8:24a m BACK PAIN January 22, 2025 8:26 am Reason for Visit Admit Date Segmental and somatic dysfunction of cer vical region October 01, 2024 4:00pm Segmental and somatic dysfunction of lum bar region October 01, 2024 4:00pm Segmental and somatic dysfunction of tho racic region October 01, 2024 4:00pm Back pain October 01, 2024 4:00 pm Segmental and somatic dysfunction of cer vical region October 30, 2024 4:00pm Segmental and somatic dysfunction of lum bar region October 30, 2024 4:00pm Segmental and somatic dysfunction of tho racic region October 30, 2024 4:00pm Scoliosis of lumbar spine October 30, 2024 4:00pm Segmental and somatic dysfunction of cer vical region November 27, 2024 2:21pm Segmental and somatic dysfunction of lum bar region November 27, 2024 2:21pm Segmental and somatic dysfunction of tho racic region November 27, 2024 2:21pm Scoliosis of lumbar spine November 27, 2024 2:21pm Back pain November 27, 2024 2:21p m Segmental and somatic dysfunction of cer vical region December 25, 2024 8:24am Segmental and somatic dysfunction of lum bar region December 25, 2024 8:24am Segmental and somatic dysfunction of tho racic region December 25, 2024 8:24am Scoliosis of lumbar spine December 25, 2024 8:24am Segmental and somatic dysfunction of cer vical region January 22, 2025 8:26am Segmental and somatic dysfunction of lum bar region January 22, 2025 8:26am Segmental and somatic dysfunction of tho racic region January 22, 2025 8:26am Back pain January 22, 2025 8:26 am Chief Complaint Admit Date BACK PAIN October 30, 2024 4:00pm BACK PAIN November 27, 2024 2:21p m BACK PAIN December 25, 2024 8:24a m BACK PAIN January 22, 2025 8:26 am BACK PAIN February 19, 2025 4: 02pm Reason for Visit Admit Date Segmental and somatic dysfunction of cer vical region October 30, 2024 4:00pm Segmental and somatic dysfunction of lum bar region October 30, 2024 4:00pm Segmental and somatic dysfunction of tho racic region October 30, 2024 4:00pm Scoliosis of lumbar spine October 30, 2024 4:00pm Segmental and somatic dysfunction of cer vical region November 27, 2024 2:21pm Segmental and somatic dysfunction of lum bar region November 27, 2024 2:21pm Segmental and somatic dysfunction of tho racic region November 27, 2024 2:21pm Scoliosis of lumbar spine November 27, 2024 2:21pm Back pain November 27, 2024 2:21p m Segmental and somatic dysfunction of cer vical region December 25, 2024 8:24am Segmental and somatic dysfunction of lum bar region December 25, 2024 8:24am Segmental and somatic dysfunction of tho racic region December 25, 2024 8:24am Scoliosis of lumbar spine December 25, 2024 8:24am Segmental and somatic dysfunction of cer vical region January 22, 2025 8:26am Segmental and somatic dysfunction of lum bar region January 22, 2025 8:26am Segmental and somatic dysfunction of tho racic region January 22, 2025 8:26am Scoliosis of lumbar spine January 22 8:26am Segmental and somatic dysfunction of cer vical region February 19, 2025 4:02pm Segmental and somatic dysfunction of lum bar region February 19, 2025 4:02pm Segmental and somatic dysfunction of tho racic region February 19, 2025 4:02pm Scoliosis of lumbar spine February 19, 2 025 4:02pm Back pain February 19, 2025 4: 02pm Chief Complaint Admit Date BACK PAIN November 27, 2024 2:21p m BACK PAIN December 25, 2024 8:24a m BACK PAIN January 22, 2025 8:26 am BACK PAIN February 19, 2025 4: 02pm BACK PAIN March 26, 2025 4:03pm Reason for Visit Admit Date Segmental and somatic dysfunction of cer vical region November 27, 2024 2:21pm Segmental and somatic dysfunction of lum bar region November 27, 2024 2:21pm Segmental and somatic dysfunction of tho racic region November 27, 2024 2:21pm Scoliosis of lumbar spine November 27, 2024 2:21pm Back pain November 27, 2024 2:21p m Segmental and somatic dysfunction of cer vical region December 25, 2024 8:24am Segmental and somatic dysfunction of lum bar region December 25, 2024 8:24am Segmental and somatic dysfunction of tho racic region December 25, 2024 8:24am Scoliosis of lumbar spine December 25, 2024 8:24am Segmental and somatic dysfunction of cer vical region January 22, 2025 8:26am Segmental and somatic dysfunction of lum bar region January 22, 2025 8:26am Segmental and somatic dysfunction of tho racic region January 22, 2025 8:26am Scoliosis of lumbar spine January 22 8:26am Segmental and somatic dysfunction of cer vical region February 19, 2025 4:02pm Segmental and somatic dysfunction of lum bar region February 19, 2025 4:02pm Segmental and somatic dysfunction of tho racic region February 19, 2025 4:02pm Scoliosis of lumbar spine February 19, 2 025 4:02pm Segmental and somatic dysfunction of cer vical region March 26, 2025 4:03pm Segmental and somatic dysfunction of lum bar region March 26, 2025 4:03pm Segmental and somatic dysfunction of tho racic region March 26, 2025 4:03pm Scoliosis of lumbar spine February 4:03pm Back pain March 26, 2025 4:03pm Additional Source Comments INFORMATION SOURCE (unrecogn ized section and content) DATE CREATED AUTHOR 06/19/2019 [facility] DATE CREATED AUTHOR AUTHOR'S ORGANIZ ATION 06/29/2019 [facility] DATE CREATED AUTHOR AUTHOR'S ORGANIZ ATION 06/15/2021 [facility] DATE CREATED AUTHOR AUTHOR'S ORGANIZ ATION 04/30/2025 [facility] Goals (unrecognized section and content) Goals may be documented in a n alternate sectionGoals may be documented in an alternate sectionGoals may be documented in an alternate sectionGoals may be documented in an alternate section Care Teams (unrecognized sec tion and content) Team Status: Active Member Role Status Dates Dr. Magalis Damico MD Family Provider Active Team Status: Inactive Member Role Status Dates Dr. Magalis Damico MD Primary Care Provider, Referrin g Provider Active Dr. Andree Turk DO Attending Provider Activ e Team Status: Active Member Role Status Dates Dr. Magalis Damico MD Primary Care Provider Active Dr. Andree Turk DO Attending Provider, Referring Provider, Other Provider Active Team Status: Inactive Member Role Status Dates Dr. Magalis Damico MD Primary Care Provider, Referrin g Provider Active Dr. Anastasia Hartman DC Attending Provider Active Team Status: Inactive Member Role Status Dates Dr. Magalis Damico MD Primary Care Provider Active Dr. Andree Turk DO Attending Provider, Refe rring Provider Active Team Status: Inactive Member Role Status Dates Dr. Magalis Damico MD Primary Care Provider Active Dr. Angela Bryant MD Attending Provider, Referring Provider Active Team Status: Active Member Role Status Dates Dr. Magalis Damico MD Family Provider Active Dr. Magalis Damico MD Primary Care Provider Active Team Status: Inactive Member Role Status Dates Dr. Magalis Damico MD Primary Care Provider, Referrin g Provider Active Dr. Twyla Nichole MD Attending Provider Active Team Status: Active Member Role Status Dates Dr. Magalis Damico MD Primary Care Provider Active Dr. Angela Bryant MD Attending Provider, Referring Provider Active Team Status: Inactive Member Role Status Dates Dr. Magalis Damico MD Referring Provider Active Dr. Twyla Nichole MD Attending Provider Active Team Status: Inactive Member Role Status Dates Dr. Magalis Damico MD Referring Provider Active Dr. Anastasia Hartman DC Attending Provider Active Team Status: Inactive Member Role Status Dates Dr. Anastasia Hartman DC Attending Provider Active Dr. Magalis Damico MD Primary Care Provider, Referrin g Provider Active Team Status: Inactive Member Role Status Dates Dr. Magalis Damico MD Primary Care Provider Active Start: August 21, 2024 End: August 21, 2024 Dr. Magalis Damico MD Referring Provider Active Start: August 21, 2024 End: August 21, 2024 Dr. Anastasia Hartman DC Attending Provider Active S tart: August 21, 2024 End: August 21, 2024 Team Status: Inactive Member Role Status Dates Dr. Magalis Damico MD Primary Care Provider Active Start: October 01, 2024 End: October 01, 2024 Dr. Magalis Damico MD Referring Provider Active Start: October 01, 2024 End: October 01, 2024 Dr. Anastasia Hartman DC Attending Provider Active S tart: October 01, 2024 End: October 01, 2024 Team Status: Inactive Member Role Status Dates Dr. Magalis Damico MD Primary Care Provider Active Start: October 30, 2024 End: October 30, 2024 Dr. Magalis Damico MD Referring Provider Active Start: October 30, 2024 End: October 30, 2024 Dr. Anastasia Hartman DC Attending Provider Active S tart: October 30, 2024 End: October 30, 2024 Team Status: Inactive Member Role Status Dates Dr. Magalis Damico MD Primary Care Provider Active Start: November 27, 2024 End: November 27, 2024 Dr. Magalis Damico MD Referring Provider Active Start: November 27, 2024 End: November 27, 2024 Dr. Anastasia Hartman DC Attending Provider Active S tart: November 27, 2024 End: November 27, 2024 Team Status: Active Member Role/Relationship Status Dates Dr. Magalis Damico MD Family Provider Active Dr. Magalis Damico MD Primary Care Provider Active Team Status: Inactive Member Role/Relationship Status Dates Dr. Magalis Damico MD Primary Care Provider Active Start: October 01, 2024 End: October 01, 2024 Dr. Magalis Damico MD Referring Provider Active Start: October 01, 2024 End: October 01, 2024 Dr. Anastasia Hartman DC Attending Provider Active S tart: October 01, 2024 End: October 01, 2024 Team Status: Inactive Member Role/Relationship Status Dates Dr. Magalis Damico MD Primary Care Provider Active Start: October 30, 2024 End: October 30, 2024 Dr. Magalis Damico MD Referring Provider Active Start: October 30, 2024 End: October 30, 2024 Dr. Anastasia Hartman DC Attending Provider Active S tart: October 30, 2024 End: October 30, 2024 Team Status: Inactive Member Role/Relationship Status Dates Dr. Magalis Damioc MD Primary Care Provider Active Start: November 27, 2024 End: November 27, 2024 Dr. Magalis Damico MD Referring Provider Active Start: November 27, 2024 End: November 27, 2024 Dr. Anastasia Hatrman DC Attending Provider Active S tart: November 27, 2024 End: November 27, 2024 Team Status: Inactive Member Role/Relationship Status Dates Dr. Magalis Damico MD Primary Care Provider Active Start: December 25, 2024 End: December 25, 2024 Dr. Magalis Damico MD Referring Provider Active Start: December 25, 2024 End: December 25, 2024 Dr. Anastasia Hartman DC Attending Provider Active S tart: December 25, 2024 End: December 25, 2024 Team Status: Inactive Member Role/Relationship Status Dates Dr. Magalis Damico MD Primary Care Provider Active Start: January 22, 2025 End: January 22, 2025 Dr. Magalis Damico MD Referring Provider Active Start: January 22, 2025 End: January 22, 2025 Dr. Anastasia Hartman DC Attending Provider Active S tart: January 22, 2025 End: January 22, 2025 Team Status: Inactive Member Role/Relationship Status Dates Dr. Magalis Damico MD Primary Care Provider Active Start: October 30, 2024 End: October 30, 2024 Dr. Magalis Damico MD Referring Provider Active Start: October 30, 2024 End: October 30, 2024 Dr. Anastasia Hartman DC Attending Provider Active S tart: October 30, 2024 End: October 30, 2024 Team Status: Inactive Member Role/Relationship Status Dates Dr. Magalis Damico MD Primary Care Provider Active Start: November 27, 2024 End: November 27, 2024 Dr. Magalis Damico MD Referring Provider Active Start: November 27, 2024 End: November 27, 2024 Dr. Anastasia Hartman DC Attending Provider Active S tart: November 27, 2024 End: November 27, 2024 Team Status: Inactive Member Role/Relationship Status Dates Dr. Magalis Damico MD Primary Care Provider Active Start: December 25, 2024 End: December 25, 2024 Dr. Magalis Damico MD Referring Provider Active Start: December 25, 2024 End: December 25, 2024 Dr. Anastasia Hartman DC Attending Provider Active S tart: December 25, 2024 End: December 25, 2024 Team Status: Inactive Member Role/Relationship Status Dates Dr. Magalis Damico MD Primary Care Provider Active Start: January 22, 2025 End: January 22, 2025 Dr. Magalis Damico MD Referring Provider Active Start: January 22, 2025 End: January 22, 2025 Dr. Anastasia Hartman DC Attending Provider Active S tart: January 22, 2025 End: January 22, 2025 Team Status: Inactive Member Role/Relationship Status Dates Dr. Magalis Damico MD Primary Care Provider Active Start: February 19, 2025 End: February 19, 2025 Dr. Magalis Damico MD Referring Provider Active Start: February 19, 2025 End: February 19, 2025 Dr. Anastasia Hartman DC Attending Provider Active S tart: February 19, 2025 End: February 19, 2025 Team Status: Active Member Role/Relationship Status Dates Dr. Magalis Damico MD Primary care physician Active Team Status: Inactive Member Role/Relationship Status Dates Dr. Magalis Damico MD Primary care physician Active Start: November 27, 2024 End: November 27, 2024 Dr. Magalis Damico MD Referring Provider Active Start: November 27, 2024 End: November 27, 2024 Dr. Anastasia Hartman DC Attending physician Active Start: November 27, 2024 End: November 27, 2024 Team Status: Inactive Member Role/Relationship Status Dates Dr. Magalis Damico MD Primary care physician Active Start: December 25, 2024 End: December 25, 2024 Dr. Magalis Damico MD Referring Provider Active Start: December 25, 2024 End: December 25, 2024 Dr. Anastasia Hartman DC Attending physician Active Start: December 25, 2024 End: December 25, 2024 Team Status: Inactive Member Role/Relationship Status Dates Dr. Magalis Damico MD Primary care physician Active Start: January 22, 2025 End: January 22, 2025 Dr. Magalis Damico MD Referring Provider Active Start: January 22, 2025 End: January 22, 2025 Dr. Anastasia Hartman DC Attending physician Active Start: January 22, 2025 End: January 22, 2025 Team Status: Inactive Member Role/Relationship Status Dates Dr. Magalis Damico MD Primary care physician Active Start: February 19, 2025 End: February 19, 2025 Dr. Magalis Damico MD Referring Provider Active Start: February 19, 2025 End: February 19, 2025 Dr. Anastasia Hartman DC Attending physician Active Start: February 19, 2025 End: February 19, 2025 Team Status: Inactive Member Role/Relationship Status Dates Dr. Magalis Damico MD Primary care physician Active Start: March 26, 2025 End: March 26, 2025 Dr. Magalis Damico MD Referring Provider Active Start: March 26, 2025 End: March 26, 2025 Dr. Anastasia Hartman DC Attending physician Active Start: March 26, 2025 End: March 26, 2025 FOR RECORDS PERTAINING TO PATIENTS WHO ARE [...] BE BASED ON THE PRIMARY CLINICAL RECORDS. [facility]. provides no warranty or guarantee of the accuracy or completeness of information in this document.
== END | disposition home or self-care (01) ==
LOC: LAB 06:03
PROVIDERS: PCP Family Medicine; Referring Provider Obstetrics & Gynecology Reproductive Endocrinology; Visit Provider Obstetrics & Gynecology Reproductive Endocrinology
DX: E02 Subclinical iodine-deficiency hypothyroidism (principal)
CPT/HCPCS: 36415; 84439; 84443

== ENCOUNTER → 2025-06-17 | Outpatient (CLI) | payer OTHER, SELFPAY ==
--- OUTSIDE RECORDS SUMMARY | 2025-06-17 06:15 | XMS RPT_ITS | CCD ---
Author Organization [facility] Care Team Providers Care Network Engineering Advisor Name Role Phone ANGELA BRYANT Admitting ANGELA De La Torre Attending MAGALIS Villanueva Primary Care Unavailable SOLITARIO HARLEY Consulting Unavailable RAHEEM HIDALGO, JACQUARD LOOM CARPET WEAVER Admitting Unavailable RAHEEM HIDALGO NP Attending Unavailable MAGALIS DAMICO Primary Care Unavailable Dr. Magalis Damico Primary Care Provider [phone] Dr. Magalis Damico Referring Provider [phone] Damian CANSECO, MAXWELL Meng Attending Provider [phone] Dr. Magalis Damico Primary Care Provider [phone] Dr. Magalis Damico Referring Provider [phone] Dr. Twyla Nichole Attending Provider [phone] Dr. Andree Turk Attending Provider [phone] Dr. Andree Turk Referring Provider [phone] Dr. Andree Turk Other Provider Dr. Magalis Damico Primary Care Provider [phone] Dr. Magalis Damico Referring Provider [phone] Dr. Anastasia Hartman Attending Provider [phone] Dr. Magalis Damico Primary Care Provider [phone] Dr. Magalis Damico Referring Provider [phone] Dr. Anastasia Hartman Attending Provider [phone] Dr. Twyla Nichole Attending Provider [phone] Dr. Magalis Damico Primary Care Provider Dr. [...] Dossi DC, Dr. Oconnor Attending Provider [phone] Mookie OCASIO, Dr. Blancas Primary Care Physician [phone] Mookie OCASIO, Dr. Blancas Referring Provider [phone] Dossi DC, Dr. Oconnor Attending Physician [phone] Magalis Damico Referring Unavailable Mookie Magalis Primary Care Unavailable Anastasia Hartman Attending Unavailable [facility], [place] Primary Care Unavailable Miedel, Magalis Referring Unavailable Andree Turk Attending Unavailabl e Andree Turk Attending Unavaildave e Angela Bryant Unavailable [facility], [place] Primary Care Unavailable Andree Turk Referring Unavailabl e Jovitaedel, [place] Primary Care Unavailable Mookie, Magalis Referring Unavailable Anastasia Hartman Attending Unavailable Mookie, [place] Primary Care Unavailable Mookie, Magalis Referring Unavailable Anastasia Hartman Attending Unavailable Tobi, [place] Primary Care Unavailable Mookie, [place] Referring Unavailable DosAnastasia jay Attending Unavailable Aked, [place] Primary Care Unavailable Miedel, Magalis Referring Unavailable Dospierre, Anastasia Attending Unavailable Aked, [place] Primary Care Unavailable Miedel, Magalis Referring Unavailable Dossi, Anastasia Attending Unavailable Mied, Magalis Primary Care Unavailable Miedel, Magalis Referring Unavailable Dossi, Anastasia Attending Unavailable Aked, [place] Primary Care Unavailable Mied, Magalis Referring Unavailable DosAnastasia jay Attending Unavailable Mied, [place] Primary Care Unavailable Miedel, Magalis Referring Unavailable Dospierre, Anastasia Attending Unavailable Mied, [place] Primary Care Unavailable Dossi, Anastasia Attending Unavailable Mied, Magalis Referring Unavailable Miedel, [place] Primary Care Unavailable DosAnastasia jay Attending Unavailable Miedel, Magalis Referring Unavailable Miedel, Magalis Referring Unavailable Mied, [place] Primary Care Unavailable Andree Turk Attending UnavailAndree Michelle Attending Unavaildave e Angela Bryant Consulting Unavailable Andree Turk Referring Unavailabl e Miedel, [place] Primary Care Unavailable Andree Turk Consulting Unavailabl e Miedel, Magalis Referring Unavailable Andree Turk Attending Unavailabl e Mied, [place] Primary Care Unavailable Aked, Magalis Referring Unavailable Aked, [place] Primary Care Unavailable Andree Turk Attending Unavailabl e Miedel, Magalis Referring Unavailable Aked, [place] Primary Care Unavailable DosAnastasia jay Attending Unavailable [...] 12:00am Start: 05-05-2021 [facility] Pnv 119-Iron Fum-Folic Acid Active 1 TABLET PO DAILY May 05, 2021 1:00am saccharomyces boulardii 250 mg oral capsule (14 sources) Start: 02-03-2022 take 1 capsule by mouth once daily Saccharomyces Boulardii (Daily Probiotic (S. Boulardii)) 250 mg capsule Active 250 mg PO DAILY February 03, 2022 12:00am Complies with drug therapy Start: 02-03-2022 take 1 capsule by mo [facility] twice daily Saccharomyces Boulardii (Daily [...] 05, 2021 2:38pm administer with a meal Multivitamin,Qn-Ssbd-Uxguknd s (Complete Multivitamin) tablet (14 sources) Start: 01-10-2019 End: 05-05-2021 Multivitamin,Px-Nnlb-Hltnwzh s (Complete Multivitamin) tablet Discontinued 1 {tbl} PO DAILY January 10, 2019 12:00am May 05, 2021 2:38pm Start: 01-10-2019 End: 05-05-2021 take 1 tablet by mouth once daily Multivitamin,Ge-Doff-Lopfxblb (Complete Multivitamin) tablet Discontinued 1 TABLET PO DAILY January 09, 2019 11:00pm May 05, 2021 1:38pm Start: 01-10-2019 End: 05-05-2021 take 1 tablet by mouth once daily Multivitamin,Rr-Lrbq-Nrvpgbem (Complete Multivitamin) tablet Discontinued 1 TABLET PO DAILY January 10, 2019 12:00am May 05, 2021 2:38pm Markham-3 Fatty Acids (Fish Oil Concentrate) 1,000 mg capsule (14 sources) Start: 01-16-2021 End: 05-05-2021 take 1 capsule by mouth once daily Markham-3 Fatty Acids (Fish Oil Concentrate) 1,000 mg capsule Discontinued 1000 mg PO DAILY January 16, 2021 12:00am May 05, 2021 2:38pm Start: 01-16-2021 End: 05-05-2021 take 1 capsule by mouth once daily Markham-3 Fatty Acids (Fish Oil Concentrate) 1,000 mg capsule Discontinued 1000 MG PO DAILY January 15, 2021 11:00pm May 05, 2021 1:38pm Start: 01-16-2021 End: 05-05-2021 take 1 capsule by mouth once daily Markham-3 Fatty Acids (Fish Oil Concentrate) 1,000 mg [...] dextroscoliosis-lumb ar Other aftercare (1 source) 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 neg urine culture anatomy reviewed. embryo transfer [...] [facility] Facility Chiropractic Reporton 2024 Chiropractic Report [facility] Chiropractic [facility] [place] [address] OFFICE VISIT Date of Service: 04/29/25 MR#: [id number] Acct: [id number] Name: RACHEAL MERRILL Rep #: [id number] : 1990 Provider: RAS Lam Age/Sex: 35/F Location: [facility] Status: Signed Intake Vital Signs 07/09/24 08:49 Height 5 ft 5 in Intake Visit Reasons: Back pain Chief Complaint: neck and low back tightness Acquisitions Logistics Analyst Required: No Accompanied by: Self Is patient [...] 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 Normal [facility] Chiropractic Reporton 2024 Chiropractic Report [facility] [address] [place] [address] OFFICE VISIT Date of Service: 12/25/24 MR#: [id number] Acct: [id number] Name: RACHEAL MERRILL Rep #: [id number] : 1990 Provider: RAS Lam Age/Sex: 34/F Location: [facility] Status: Signed Intake Vital Signs 07/09/24 08:49 Height 5 ft 5 in Intake Visit Reasons: Back pain Chief Complaint: neck and low back Allergies No Known Allergies Allergy (Verified 11/27/24 14:32) [facility] Medical History Depression Anxiety Thyroid disease [...] 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 Normal [facility] Canned Food Reconditioning Inspector Office Visit Reporton 07-09-2024 Canned Food Reconditioning Inspector Office Visit Report [facility] [address], [address] [place] [address] OFFICE VISIT Date of Service: 07/09/24 MR#: [id number] Acct: [id number] Name: RACHEAL MERRILL Rep #: [id number] : 1990 Provider: Dr. Andree Culver DO Age/Sex: 34/F Location: [facility] Status: Signed Intake Vital Signs 05/15/24 14:59 06/26/24 12:27 07/09/24 08:49 Height 5 ft 5 in 5 ft 5 in 5 ft 5 in Weight: 130 lb 4 oz BMI 21.7 BP 124/74 H Intake Visit Reasons: 2 wk diag. 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 lap possible lysis of [...] (may) 34 live - 4lbs 10oz Female [facility] Dr. Duarte 06/21/21 Ck 34 live - 5lbs 3oz [facility] Dr Mine Turk Delivery Date: 06/21/21 [...] with meth (more content not included)... Normal [facility] Discharge Instructionon 05-29 Discharge Instruction [facility] Medical Records Department [address] [place] [address] Instructions for Home/Discharge Instructions 06/26/24 1510 MR#: [id number] Acct: [id number] Name: RACHEAL MERRILL Rep #: [id number] : 1990 34 From: Andree Turk DO [...] Consulting Providers: Angela Bryant Instructions Print Language: Romanian Discharge Orders/Prescriptions Prescriptions: New oxycodone 5 mg [...] Damico MD; Dr. Angela Bryant MD Signed [facility] MR/POSTOP.[facility] 06-26-2024 MR/POSTOP.[facility] Medical Records Department [address] [place] [address] Anesthesia Postop Eval I 06/26/24 1645 MR#: [id number] Acct: [id number] Name: RACHEAL MERRILL Rep #: [id number] : 1990 34 From: Fady Murray CRNA PCP: Dr. Magalis Damico MD Status:REG SDC Y Race: C Location: [place] [address] Anesthesia: Postop Eval I Current Vital Signs [...] completed: Yes 06/26/24 1645 Date Fady Ramzeyad COIL REPAIR TECHNICIAN Cosigner Signature: Date CC: Signed Normal [facility] MR/[id number] 06-26-2024 [facility] Medical Records Department [address] [facility] [place] [address] Anesthesia Postop Eval II 06/26/242003 MR#: [id number] Acct: [id number] Name: RACEHAL MERRILL CHRIS Rep #: [id number] : 1990 34 From: Randy Murrieta MD PCP: Dr. Magalis Damico MD Status:[facility] Y Race: C Location: [facility] Anesthesia Postop Eval I Sum Postop Eval Completion status Anesthesia document: Postop Eval 1 completed: Yes Anesthesia Postop Eval I Summary Anesthesia Postop Eval I Summary: Anesthesia Postop Eval I: Assessment Summary Airway patent Yes 06/26/24 16:45 COIL REPAIR TECHNICIAN.JBLOU Spontaneous unlabored Yes 06/26/24 16:45 COIL REPAIR TECHNICIAN.JBLOU respirations Mental status Awake,Calm 06/26/24 16:45 COIL REPAIR TECHNICIAN.JBLOU nausea No 06/26/24 16:45 COIL REPAIR TECHNICIAN.JBLOU Vomiting No 06/26/24 16:45 COIL REPAIR TECHNICIAN.JBLOU Anesthesia Postop Eval I: Fluid Summary Crystalloid volume administer 1,000 06/26/24 16:45 COIL REPAIR TECHNICIAN.JBLOU (ml) Colloids volume administered ( ml) Blood Product volume administered (ml) Total IV fluid infused 1,000 06/26/24 16:45 COIL REPAIR TECHNICIAN.JBLOU Anesthesia Postop Eval I: Summary Notes Anesthesia Complication No 06/26/24 16:45 COIL REPAIR TECHNICIAN.JBLOU Anesthesia Complication Comment: Post-operative progress note Anesthesia: Postop Eval II Evaluation Mental status: Awake Pain Level: 0 nausea: No Vomiting: No 06/26/242004 Date Randy Beauchamp Signature: Date CC: Signed Normal [facility] Operative Reporton 4 Operative Report [facility] Medical Records Department [address] [place] [address] Operative Report 06/26/24 1600 MR#: [id number] Acct: [id number] Name: RACHEAL MERRILL Rep #: [id number] : 1990 34 From: Andree Turk DO PCP: Dr. Magalis Damico MD Status:[facility] Location: [place] [address] Problems Associated Problem List Diagnoses (1) Pelvic pain: Multi Select Codes Urinary/Genital Urinary/Genital CPT Codes: 32873 Chromotubation and 93693 Laproscopic ablation endometriosis Operative Report (Standard) Operative Information Date of Procedure: 06/26/24 Pre-Operative Diagnosis: Pelvic pain and recurrent miscarriage, suspect possible endometriosis Post-Operative Diagnosis: Pelvic pain and recurrent miscarriage, suspect possible endometriosis Surgery/Procedure Performed: Diagnostic laparoscopy destruction of endometriosis and chromotubation of fallopian tubes division officer weapons department: Yes Crisis Counselor: Harish Hogan Tasks completed by clinic assistant: Closing, Insert Trochanter, Hemostasis: Tie and Trocar Additional therapeutic recreation assistant?: No Type of Anesthesia: General RN [...] SCD's VTE Pharm Prophylaxis ordered?: No 06/26/24 0467 Cosigner Signature (if applicable): CC: Dr. Magalis Damico MD; Dr. Andree Turk DO; Dr. Angela Bryant MD Signed [facility] ,Urineon 06-26-2024 Beta HCG ( test) Ql (U) Negative [facility] Comment on above: Result Comment: Very dilute urine specimens, as indicated by a low specific gravity, may not contain congressional representative levels of hCG. If is still suspected, a first morning urine specimen should be collected 48 hours later and tested. Performed By: #### L 400.7600 ####[facility] [address] [place], [address] CBC-Complete Blood Cnt No Di ffon 06-23-2024 Erythrocyte distribution width (RBC) [Ratio] 12.2 % Normal 11.6-14.6 [facility] Comment on above: Order Comment: WILL DRAW GREEN IN CASE ANESTESIA WANTS A MG NO ORDER IN.DR TURK ORDERED CBC, TSPATDR MASSELALL ORDERED TSH Performed By: #### L 501.9520, BTSPAT, L100.0500 ####[facility] [address] [place], [place], [id number](149) Hematocrit (Bld) [Volume fraction] 37.7 % Normal 37-47 [facility] Comment on above: Order Comment: WILL DRAW GREEN IN CASE ANESTESIA WANTS A MG NO ORDER IN.DR TURK ORDERED CBC, TSPATDR MASSELALL ORDERED TSH Performed By: #### L 501.9520, BTSPAT, L100.0500 ####[facility] [address] [place], [address] Hemoglobin (Bld) [Mass/Vol] 12.4 g/dL Normal 12.0-15.0 [facility] Comment on above: Order Comment: WILL DRAW GREEN IN CASE ANESTESIA WANTS A MG NO ORDER IN.DR TURK ORDERED CBC, TSPATDR MASSELALL ORDERED TSH Performed By: #### L 501.9520, BTSPAT, L100.0500 ####[facility] [address] [place], [address] MCH (RBC) [Entitic mass] 29.2 pg Normal 27.0-32.0 [facility] Comment on above: Order Comment: WILL DRAW GREEN IN CASE ANESTESIA WANTS A MG NO ORDER IN.DR TURK ORDERED CBC, TSPATDR MASSELALL ORDERED TSH Performed By: #### L 501.9520, BTSPAT, L100.0500 ####[facility] [address] [place], [address] MCHC (RBC) [Mass/Vol] 32.9 g/dL Normal 32-36 [facility] Comment on above: Order Comment: WILL DRAW GREEN IN CASE ANESTESIA WANTS A MG NO ORDER IN.DR TURK ORDERED CBC, TSPATDR MASSELALL ORDERED TSH Performed By: #### L 501.9520, BTSPAT, L100.0500 ####[facility] [address] [place], [address] MCV (RBC) [Entitic vol] 88.7 fL Normal 81-99 [facility] Comment on above: Order Comment: WILL DRAW GREEN IN CASE ANESTESIA WANTS A MG NO ORDER IN.DR TURK ORDERED CBC, TSPATDR MASSELALL ORDERED TSH Performed By: #### L 501.9520, BTSPAT, L100.0500 ####[facility] [address] [place], [address] Platelet mean volume (Bld) [Entitic vol] 10.7 fL Normal 6.2-12.0 [facility] Comment on above: Order Comment: WILL DRAW GREEN IN CASE ANESTESIA WANTS A MG NO ORDER IN.DR TURK ORDERED CBC, TSPATDR MASSELALL ORDERED TSH Performed By: #### L 501.9520, BTSPAT, L100.0500 ####[facility] [address] [place], [address] Platelets (Bld) [#/Vol] 291 10*3/uL Normal 150-450 [facility] Comment on above: Order Comment: WILL DRAW GREEN IN CASE ANESTESIA WANTS A MG NO ORDER IN.DR TURK ORDERED CBC, TSPATDR MASSELALL ORDERED TSH Performed By: #### L 501.9520, BTSPAT, L100.0500 ####[facility] [address] [place], [address] RBC (Bld) [#/Vol] 4.25 10*6/uL Normal 4.2-5.4 [facility] Comment on above: Order Comment: WILL DRAW GREEN IN CASE ANESTESIA WANTS A MG NO ORDER IN.DR TUKR ORDERED CBC, TSPATDR MASSELALL ORDERED TSH Performed By: #### L 501.9520, BTSPAT, L100.0500 ####[facility] [address] [place], [address] RDW SD 38.8 fl Normal 35.1-43.9 [facility] Comment on above: Order Comment: WILL DRAW GREEN IN CASE ANESTESIA WANTS A MG NO ORDER IN.DR TURK ORDERED CBC, TSPATDR MASSELALL ORDERED TSH Performed By: #### L 501.9520, BTSPAT, L100.0500 ####[facility] [address] [place], [place], [address] WBC (Bld) [#/Vol] 6.1 10*3/uL Normal 4.4-11.0 [facility] Comment on above: Order Comment: WILL DRAW GREEN IN CASE ANESTESIA WANTS A MG NO ORDER IN.DR TURK ORDERED CBC, TSPATDR MASSELALL ORDERED TSH Performed By: #### L 501.9520, BTSPAT, L100.0500 ####[facility] [address] [place], [address] Thyroid Stim Hormone (TSH)on 06-23-2024 TSH 0.395 uIU/mL Normal 0.358-3.740 [facility] Comment on above: Order Comment: WILL DRAW GREEN IN CASE ANESTESIA WANTS A MG NO ORDER IN.DR TURK ORDERED CBC, TSPATDR MASSELALL ORDERED TSH Performed By: #### L 501.9520, BTSPAT, L100.0500 ####[facility] [address] [place], [place], [phone] Type AND Screen - PAT ONLYon 06-23-2024 Ab SCREEN GEL Negative Normal [facility] Comment on above: Order Comment: Surge ry Date: 06/26/24Reason for Laboratory Test PREOPWILL DRAW GREEN IN CASE ANESTESIA WANTS A MG NO ORDER IN.DR TURK ORDERED CBC, TSPATDR MASSELALL ORDERED [id number] LAP LYSIS OF ADHESIONS Performed By: #### L 501.9520, BTSPAT, L100.0500 ####[facility] [address] [place], [address] Canned Food Reconditioning Inspector Office Visit Reporton 06-08-2024 Canned Food Reconditioning Inspector Office Visit Report [facility] [address], [address] [place] [address] OFFICE VISIT Date of Service: 06/08/24 MR#: [id number] Acct: [id number] Name: RACHEAL MERRILL Rep #: [id number] : 1990 Provider: Dr. Andree Culver, Age/Sex: 34/F Location: [facility] Status: Signed Intake Vital Signs 05/15/24 14:59 06/08/24 16:04 06/08/24 16:04 Height 5 ft 5 in 5 ft 5 in 5 ft 5 in Weight: 130 lb 2 oz BMI 21.6 BP 129/84 H Intake Visit Reasons: diag. 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 Dr. Duarte 06/21/21 [place] 34 live - 5lbs 3oz [facility] Dr Mine Turk Delivery Date: 06/21/21 [...] patient's diagn (more content not included)... 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 Normal [facility] Canned Food Reconditioning Inspector Office Visit Reporton 05-15-2024 Canned Food Reconditioning Inspector Office Visit Report [facility], [address] [place] [id number] OFFICE VISIT Date of Service: 05/15/24 MR#: [id number] Acct: [id number] Name: RACHEAL MERRILL Rep #: [id number] : 1990 Provider: Dr. 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 Date Name GA/Weeks Outcome Route Bth Weight Infant Gen Labor Lgth Anesthesia Del Locatn Provider FOB 06/21/21 [place] (may) 34 live - 4lbs 10oz Female [facility] Dr. Duarte 06/21/21 [place] 34 live - 5lbs 3oz [facility] Dr Mine Turk Delivery Date: 06/21/21 [...] voiding, dysuria, (more content not included)... Normal [facility] Serum or plasma choriogonado tropin detectionOrdered By: Angela Bryant on 08-15-2023 HCG ( test) Ql < 1 mIU/mL <4 [facility] Comment on above: hCG levels with Gest ational AgeGestational Age hCG mIU/mL (IU/L)0.2 - 1 week 5 - 501-2 weeks 50 - 5002-3 weeks 100 - 42130-6 weeks 500 - 790915-9 weeks 1000 - 484429-1 weeks 68791 - 100,0006-8 weeks 10661 - 200,0002-3 months 16841 - 100,000 No Panel InformationOrdered By: Angela Bryant on 05-04-2023 Thyroid Stimulating Hormone (TSH) 1.89 uIU/mL 0.358-3.74 [facility] Serum or plasma choriogonado tropin detectionOrdered By: Angela Bryant on 05-04-2023 HCG ( test) Ql 3 mIU/mL <4 [facility] Comment on above: hCG levels with Gest ational AgeGestational Age hCG mIU/mL (IU/L)0.2 - 1 week 5 - 501-2 weeks 50 - 5002-3 weeks 100 - 63199-7 weeks 500 - 347753-5 weeks 1000 - 863095-4 weeks 83765 - 100,0006-8 weeks 33083 - 200,0002-3 months 98977 - 100,000 Serum or plasma choriogonado tropin detectionOrdered By: Angela Bryant on 05-02-2023 HCG ( test) Ql 10 mIU/mL <4 [facility] Comment on above: hCG levels with Gest ational AgeGestational Age hCG mIU/mL (IU/L)0.2 - 1 week 5 - 501-2 weeks 50 - 5002-3 weeks 100 - 38619-1 weeks 500 - 472907-7 weeks 1000 - 983816-9 weeks 08193 - 100,0006-8 weeks 86222 - 200,0002-3 months 92928 - 100,000 Laboratory - Chemistry and C hemistry - challengeOrdered By: Angela Bryant on 03-21-2023 Free T4 [Mass/Vol] 1.20 ng/dL 0.76-1.46 [facility] No Panel InformationOrdered By: Angela Bryant on 03-21-2023 Thyroid Stimulating Hormone (TSH) 2.15 uIU/mL 0.358-3.74 [facility] Laboratory - Chemistry and C hemistry - challengeOrdered By: Angela Bryant on 02-23-2023 Free T4 [Mass/Vol] 1.03 ng/dL 0.76-1.46 [facility] No Panel InformationOrdered By: Angela Bryant on 02-23-2023 Thyroid Stimulating Hormone (TSH) 3.09 uIU/mL 0.358-3.74 [facility] No Panel InformationOrdered By: Angela Bryant on 02-16-2023 Thyroid Stimulating Hormone (TSH) 2.55 uIU/mL 0.358-3.74 [facility] Dilute Juan's viper venom timeOrdered By: Andree Martinez on 01-28-2023 dRVVT Coag (PPP) [Time] 32.4 s 0.0-47.0 [facility] No Panel InformationOrdered By: Andree Martinez on 01-28-2023 Anti-Cardiolipin IgM Antibody 9 MPL U/mL 0-12 [facility] Comment on above: Negative: <13 Indete rminate: 13 - 20 Low-Med Positive: >20 - 80 High Positive: >80 Serum beta 2 glycoprotein 1 IgA antibody detectionOrdered By: Andree Martinez on 01-28-2023 Beta 2 glycoprotein 1 IgA Ql (S) <9 0-25 [facility] Comment on above: Result Units: [...] glycoprotein 1 IgG Ql (S) <9 0-20 [facility] Comment on above: Result Units: [...] glycoprotein 1 IgM Ql (S) <9 0-32 [facility] Comment on above: Result Units: GPI Ig M unitsThe reference interval reflects a 3SD or 99th percentileinterval, which is thought to represent a potentiallyclinically significant result in accordance with theInternational Consensus Statement on the classificationcriteria for definitive antiphospholipid syndrome (APS). JThromb Haem 2006;4:295-306.Performed at: [facility] [employer] [id number] Director: Elizabeth Glasgow MD, Phone: [phone] at: [facility] [employer] [id number] Director: Ishan Nino PhD, Phone: [phone] Serum cardiolipin IgG antibo dy assay by immunoassay (units/volume)Ordered By: Andree Martinez on 01-28-2023 Cardiolipin IgG IA Qn (S) < 9 GPL U/mL 0-14 [facility] Comment on above: Negative: <15 Indete rminate: 15 - 20 Low-Med Positive: >20 - 80 High Positive: >80 Serum or plasma cardiolipin IgA antibody assay (units/volume)Ordered By: Andree Martinez on 01-28-2023 Cardiolipin IgA Qn < 9 APL U/mL 0-11 [facility] Comment on above: Negative: <12 Indete rminate: 12 - 20 Low-Med Positive: >20 - 80 High Positive: >80 Thin prep Papanicolaou smear with manual screeningOrdered By: Andree Martinez on 01-28-2023 Thin prep Papanicolaou smear with manual screening 35.9 sec 0.0-47.6 [facility] Thin prep Papanicolaou smear with manual screening 0.95 Ratio 0.00-1.34 [facility] Thin prep Papanicolaou smear with manual screening 35.8 sec 0.0-43.5 [facility] Thin prep Papanicolaou smear with manual screening Comment: . [facility] Comment on above: No lupus anticoagula nt was detected. Thrombin time in platelet po or plasmaOrdered By: Andree Martinez on 01-28-2023 Thrombin time Coag (PPP) [Time] 17.5 sec 0.0-23.0 [facility] Basophil percentageOrdered B y: Dr. Martinez on 11-26-2022 WBC (Bld) [#/Vol] 8.4 10*3/uL 4.4-11.0 [facility] Blood erythrocytes count (nu mber/volume)Ordered By: Dr. Martinez on 11-26-2022 RBC (Bld) [#/Vol] 4.63 10*6/uL 4.2-5.4 [facility] Blood hemoglobin measurement (mass/volume)Ordered By: Dr. Martinez on 11-26-2022 Hemoglobin (Bld) [Mass/Vol] 14.0 g/dL 12.0-15.0 [facility] Blood platelet mean volumeOr dered By: Dr. Martinez on 11-26-2022 Platelet mean volume (Bld) [Entitic vol] 10.9 fL 6.2-12.0 [facility] Determination of erythrocyte mean corpuscular volume (MCV)Ordered By: Dr. Martinez on 11-26-2022 MCV (RBC) [Entitic vol] 90.3 fL 81-99 [facility] Hematocrit Auto (Bld) [Volum e fraction]Ordered By: Dr. Martinez on 11-26-2022 Hematocrit (Bld) [Volume fraction] 41.8 % 37-47 [facility] Laboratory - Hematology and Cell countsOrdered By: Dr. Martinez on 11-26-2022 Erythrocyte distribution width (RBC) [Entitic vol] 38.2 fL 35.1-43.9 [facility] Erythrocyte distribution width (RBC) [Ratio] 11.7 % 11.6-14.6 [facility] MCH (RBC) [Entitic mass] 30.2 pg 27.0-32.0 [facility] MCHC Auto (RBC) [Mass/Vol]Or dered By: Dr. Martinez on 11-26-2022 MCHC (RBC) [Mass/Vol] 33.5 g/dL 32-36 [facility] Platelets bldOrdered By: Dr. Martinez on 11-26-2022 Platelets (Bld) [#/Vol] 355 10*3/uL 150-450 [facility] Serum or plasma choriogonado tropin detectionOrdered By: Dr. Bryant on 10-27-2022 HCG ( test) Ql 438 mIU/mL <4 [facility] Comment on above: hCG levels with Gest ational AgeGestational Age hCG mIU/mL (IU/L)0.2 - 1 week 5 - 501-2 weeks 50 - 5002-3 weeks 100 - 85608-3 weeks 500 - 597823-4 weeks 1000 - 730235-0 weeks 98724 - 100,0006-8 weeks 40849 - 200,0002-3 months 82263 - 100,000 Serum or plasma choriogonado tropin detectionOrdered By: Dr. Bryant on 10-25-2022 HCG ( test) Ql 245 mIU/mL <4 [facility] Comment on above: hCG levels with Gest ational AgeGestational Age hCG mIU/mL (IU/L)0.2 - 1 week 5 - 501-2 weeks 50 - 5002-3 weeks 100 - 90737-0 weeks 500 - 619899-4 weeks 1000 - 140890-5 weeks 74963 - 100,0006-8 weeks 51747 - 200,0002-3 months 39918 - 100,000 Basophil percentageOrdered B y: Dr. Bryant on 07-22-2022 C. trachomatis DNA CARMEN+probe Ql (Unsp spec) Negative Negative [facility] HIV 1 and HIV-2 antibody ass ay with HIV-1 p24 antigen detectionOrdered By: Dr. Bryant on 07-22-2022 HIV 1+2 Ab+HIV1 p24 Ag IA Ql Non-Reactive Nonreactive [facility] Laboratory - Chemistry and C hemistry - challengeOrdered By: Dr. Bryant on 07-22-2022 Free T4 [Mass/Vol] 0.94 ng/dL 0.76-1.46 [facility] Neisseria gonorrhoeae detect ion by PCROrdered By: Dr. Bryant on 07-22-2022 N. gonorrhoeae DNA CARMEN+probe Ql (Cervical mucus) Negative Negative [facility] No Panel InformationOrdered By: Dr. Bryant on 07-22-2022 Hepatitis B Surface Antigen Non-Reactive Nonreactive [facility] Hepatitis C Antibody Non-Reactive Nonreactive [facility] Comment on above: Non Reactive: < 0.8 Equivocal: >/= 0.8 to < 1.0 Reactive: >/= 1.0The CDC recommends that a reactive/equivocal HCV antibody result be followed up by the HCV Nucleic Acid Amplificationtest (025394) Rubella IgG Antibody Reactive Nonreactive [facility] Comment on above: Antibody Results Int erpretation of Immune Status Non Reactive Presumed Non-Immune Equivocal Equivocal Reactive Presumed Immune Thyroid Stimulating Hormone (TSH) 2.11 uIU/mL 0.358-3.74 [facility] Serum Treponema species anti body detectionOrdered By: Dr. Bryant on 07-22-2022 Treponema sp Ab Ql (S) Non-Reactive [facility] Serum Varicella zoster virus IgG antibody assay by immunoassay (units/volume)Ordered By: Dr. Bryant on 07-22-2022 VZV IgG IA Qn (S) 1620 index Immune >165 [facility] Comment on above: Negative <135 Equivo shilpa 135 - 165 Positive >165A positive result generally indicates exposure to thepathogen or administration of specific immunoglobulins,but it is not indication of active infection or stageof disease.Performed at: [address] [id number] Director: Ishan Nino PhD, Phone: [phone] Dilute Juan's viper venom timeon 02-03-2022 dRVVT Coag (PPP) [Time] 33.2 s 0.0-47.0 [facility] Work Phone: No Panel Informationon 02-03 Anti-Cardiolipin IgM Antibody < 9 MPL U/mL 0-12 [facility] Work Phone: Comment on above: Negative: <13 Indete rminate: 13 - 20 Low-Med Positive: >20 - 80 High Positive: >80 Serum beta 2 glycoprotein 1 IgA antibody detectionon 02-03-2022 Beta 2 glycoprotein 1 IgA Ql (S) <9 0-25 [facility] Work Phone: Comment on above: [...] glycoprotein 1 IgG Ql (S) <9 0-20 [facility] Work Phone: Comment on above: [...] glycoprotein 1 IgM Ql (S) <9 0-32 [facility] Work Phone: Comment on above: Result Units: GPI Ig M unitsThe reference interval reflects a 3SD or 99th percentileinterval, which is thought to represent a potentiallyclinically significant result in accordance with theInternational Consensus Statement on the classificationcriteria for definitive antiphospholipid syndrome (APS). JThromb Haem 2006;4:295-306.Performed at: [address] [place], [place] [id number] Director: Elizabeth Glasgow MD, Phone: [phone] at: [address] [id number] Director: Ishan Nino PhD, Phone: [phone] Serum cardiolipin IgG antibo dy assay by immunoassay (units/volume)on 02-03-2022 Cardiolipin IgG IA Qn (S) < 9 GPL U/mL 0-14 [facility] Work Phone: Comment on above: Negative: <15 Indete rminate: 15 - 20 Low-Med Positive: >20 - 80 High Positive: >80 Serum or plasma cardiolipin IgA antibody assay (units/volume)on 02-03-2022 Cardiolipin IgA Qn < 9 APL U/mL 0-11 [facility] Work Phone: Comment on above: Negative: <12 Indete rminate: 12 - 20 Low-Med Positive: >20 - 80 High Positive: >80 Thin prep Papanicolaou smear with manual screeningon 02-03-2022 Thin prep Papanicolaou smear with manual screening 35.6 sec 0.0-47.6 [facility] Work Phone: Thin prep Papanicolaou smear with manual screening 0.89 Ratio 0.00-1.34 [facility] Work Phone: Thin prep Papanicolaou smear with manual screening 35.0 sec 0.0-51.9 [facility] Work Phone: Thin prep Papanicolaou smear with manual screening Comment: . [facility] Work Phone: Comment on above: No lupus anticoagula nt was detected. 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 (more content not included)... Normal [facility] Surgical Pathology Depar tmenton 06-12-2019 [facility] Surgical Pathology Department Name RACHEAL MERRILL Pathologist: MIRNA JOSEPH DO Date of Procedure: 06/12/2019 Date Received: 06/13/2019 Date Reported 06/18/2019 Submitting Physician: ANGELA BRYANT MD Location: [facility] Copy To/Referring/Attending: MAGALIS DAMICO MD Other External # [id number] FINAL DIAGNOSIS A. ENDOMETRIAL POLYPS; POLYPECTOMY: -- FRAGMENTS OF ENDOMETRIAL POLYP AND LATE SECRETORY PHASE ENDOMETRIUM. Electronically Signed Out By MIRNA JOSEPH DO/CMB By the signature on this report, the individual or group listed as making the Final Interpretation/Diagnosis certifies that they have reviewed this case. Clinical History: Endometrial polyp Specimens Submitted As: A: POLYPS Other Case Numbers [id number] Gross Description: Received in formalin, labeled with the patient's name, hospital number, and polyps, are multiple irregular segments of rubbery soft tissue, aggregating to 1.4 x 1.0 x 0.4 cm. The specimen is entirely submitted in one cassette. JDC jdc/06/13/2019 Normal [facility] Comment on above: Performed By: #### [facility] #### [facility] Surgical Pathology Department [id number] [facility] [address] Vital Signs Date Time Vital Sign Value Performing Clinician Suraj vega 03-07-2023 10:29-0400 Body height 165.[address] Magalis Damico Work Phone: [facility] 03-07-2023 10:26-0400 Body mass index (BMI) [Ratio] 21.4 kg/m2 Dr. Magalis Damico Work Phone: [facility] 03-07-2023 10:26-0400 Body weight 58.[address] Magalis Damico Work Phone: [facility] 03-07-2023 10:26-0400 Diastolic blood pressure 78 mm[Hg] Dr. Magalis Damico Work Phone: [facility] 03-07-2023 10:26-0400 Systolic blood pressure 125 mm[Hg] Dr. Magalis Damico Work Phone: [facility] 02-01-2023 09:41-0400 Body height 165.[address] Magalis Damico Work Phone: [facility] 02-01-2023 09:41-0400 Body mass index (BMI) [Ratio] 21.9 kg/m2 Dr. Magalis Damico Work Phone: [facility] 02-01-2023 09:41-0400 Body weight 59.[address] Magalis Damico Work Phone: [facility] 02-01-2023 09:41-0400 Diastolic blood pressure 66 mm[Hg] Dr. Magalis Damico Work Phone: [facility] 02-01-2023 09:41-0400 Systolic blood pressure 122 mm[Hg] Dr. Magalis Damico Work Phone: [facility] 12-09-2022 12:49-0400 Body mass index (BMI) [Ratio] 21.4 kg/m2 Dr. Magalis Damico Work Phone: [facility] 12-09-2022 12:49-0400 Body weight 58.[address] Magalis Damico Work Phone: [facility] 12-09-2022 12:49-0400 Diastolic blood pressure 73 mm[Hg] Dr. Magalis Damico Work Phone: [facility] 12-09-2022 12:49-0400 Systolic blood pressure 112 mm[Hg] Dr. Magalis Damico Work Phone: [facility] 11-26-2022 14:41-0400 Body temperature 97.5 [degF] Dr. Magalis Damico Work Phone: [facility] 11-26-2022 14:41-0400 Diastolic blood pressure 56 mm[Hg] Dr. Magalis Damico Work Phone: [facility] 11-26-2022 14:41-0400 Heart rate 63 /min Dr. Magalis Damico Work Phone: [facility] 11-26-2022 14:41-0400 Respiratory rate 16 /min Dr. Magalis Damico Work Phone: [facility] 11-26-2022 14:41-0400 SaO2% (BldA) [Mass fraction] 100 % Dr. Magalis Damico Work Phone: [facility] 11-26-2022 14:41-0400 Systolic blood pressure 99 mm[Hg] Dr. Magalis Damico Work Phone: [facility] 11-26-2022 10:25-0400 Body height 165.[address] Magails Damico Work Phone: [facility] 11-26-2022 10:25-0400 Body mass index (BMI) [Ratio] 20.7 kg/m2 Dr. Magalis Damico Work Phone: [facility] 11-26-2022 10:25-0400 Body weight 56.[address] Magalis Damico Work Phone: [facility] 11-25-2022 10:47-0400 Body mass index (BMI) [Ratio] 21.2 kg/m2 Dr. Magalis Damico Work Phone: [facility] 11-25-2022 10:47-0400 Body weight 57.[address] Magalis Damico Work Phone: [facility] 11-25-2022 10:47-0400 Diastolic blood pressure 85 mm[Hg] Dr. Magalis Damico Work Phone: [facility] 11-25-2022 10:47-0400 Systolic blood pressure 133 mm[Hg] Dr. Magalis Damico Work Phone: [facility] 08-05-2022 14:29-0500 Body height 165.[address] Magalis Damico Work Phone: [facility] 08-05-2022 14:27-0500 Body mass index (BMI) [Ratio] 21.6 kg/m2 Dr. Magalis Damico Work Phone: [facility] 08-05-2022 14:27-0500 Body weight 58.[address] Magalis Damico Work Phone: [facility] 08-05-2022 14:27-0500 Diastolic blood pressure 81 mm[Hg] Dr. Magalis Damico Work Phone: [facility] 08-05-2022 14:27-0500 Systolic blood pressure 126 mm[Hg] Dr. Magalis Damico Work Phone: [facility] 02-03-2022 11:36-0400 Body height 165.[address] Magalis Damico Work Phone: [facility] Work Phone: 02-03-2022 11:36-0400 Body mass index (BMI) [Ratio] 22.1 kg/m2 Dr. Magalis Damico Work Phone: [facility] Work Phone: 02-03-2022 11:36-0400 Body weight 60.[address] Magalis Damico Work Phone: [facility] Work Phone: 02-03-2022 11:36-0400 Diastolic blood pressure 60 mm[Hg] Dr. Magalis Damico Work Phone: [facility] Work Phone: 02-03-2022 11:36-0400 Systolic blood pressure 100 mm[Hg] Dr. Magalis Damico Work Phone: [facility] Work Phone: Encounters Encounter Date Encounter Type Care Provider Facility Start: 04-29-2025 End: 04-29-2025 ambulatory Magalis Damico Facility:[facility] Start: 03-26-2025 End: 03-26-[address] Anastasia Hartman [place] [facility] Work Phone: Start: 03-26-2025 End: 03-26-[address] Magalis Damico MD Work Phone: [facility] Start: 02-19-2025 End: 02-19-[address] Anastasia Hartman [place] [facility] Work Phone: Start: 02-19-2025 End: 02-19-[address] Magalis Damico MD Work Phone: [facility] Start: 01-22-2025 End: 01-22-[address] Anastasia Hartman [place] [facility] Work Phone: Start: 01-22-2025 End: 01-22-[address] Magalis Damico MD Work Phone: [facility] Start: 12-25-2024 End: 12-25-[address] Anastasia Hartman [place] [facility] Work Phone: Start: 12-25-2024 End: 12-25-[address] Magalis Damico MD Work Phone: [facility] Start: 11-27-2024 End: 11-27-[address] Anastasia Hartman [place] [facility] Work Phone: Start: 11-27-2024 End: 11-27-[address] Magalis Damico MD Work Phone: [facility] Work Phone: Start: 10-30-2024 End: 10-30-[address] Anastasia Hartman [place] [facility] Work Phone: Start: 10-30-2024 End: 10-30-2024 ambulatory Magalis Miedel Facility:[facility] Start: 10-01-2024 End: 10-01-[address] Anastasia Hartman [place] [facility] Work Phone: Start: 10-01-2024 End: 10-01-2024 ambulatory Magalis Miedel Facility:[facility] Start: 08-21-2024 End: 08-21-[address] Anastasia Hartman [place] [facility] Work Phone: Start: 08-21-2024 End: 08-21-2024 ambulatory Magalis Miedel Facility:[facility] Start: 07-19-2024 End: 07-19-2024 ambulatory Magalis Damico Facility:[facility] Start: 07-16-2024 Encounter for other preprocedural examination [facility] Start: 07-09-2024 End: 07-09-2024 ambulatory Magalis Miedel [facility] Start: 06-26-2024 ambulatory [facility] Start: 06-26-2024 End: 06-26-2024 ambulatory [facility] Facility:[facility] Start: 06-25-2024 ambulatory Magalis Miedel [facility] Start: 06-08-2024 End: 06-08-2024 ambulatory Magalis Husseinedel [facility] Start: 05-29-2024 End: 05-29-2024 ambulatory Magalis Miedel [facility] Start: 05-15-2024 Encounter for gynecological examination (general) (routine) without abnormal findings [facility] Start: 05-15-2024 End: 05-15-2024 ambulatory Magalis Miedel [facility] Start: 05-04-2024 ambulatory Magalis Damico [facility] Start: 08-15-2023 End: 08-15-[address] Magalis Damico Work Phone: [facility] Work Phone: Start: 08-15-2023 End: 08-15-[address] [facility] Start: 08-09-2023 End: 08-09-[address] Magalis Damico Work Phone: [facility] Work Phone: Start: 07-12-2023 End: 07-12-[address] Magalis Damico Work Phone: [facility] Work Phone: Start: 06-09-2023 End: 06-09-[address] Magalis Damico Work Phone: [facility] Work Phone: Start: 05-04-2023 End: 05-04-[address] Magalis Dam[facility]: Start: 05-02-2023 End: 05-02-[address] Magalis Damico Work Phone: [facility] Work Phone: Start: 05-02-2023 End: 05-02-[address] Magalis Dam[facility]: Start: 04-18-2023 End: 04-18-[address] Magalis Damico Work Phone: [facility] Work Phone: Start: 03-28-2023 End: 03-28-[address] Magalis Damico Work Phone: [facility] Work Phone: Start: 03-21-2023 End: 03-21-[address] Magalis Dam[facility]: Start: 03-08-2023 End: 03-08-[address] Magalis Damico Work Phone: [facility] Work Phone: Start: 03-07-2023 End: 03-07-[address] Magalis Damico Work Phone: [facility] Work Phone: Start: 02-23-2023 End: 02-23-[address] Magalis Damico Work Phone: [facility] Work Phone: Start: 02-23-2023 End: 02-23-[address] Magalis Dam[facility]: Start: 02-16-2023 End: 02-16-[address] Magalis Dam[facility]: Start: 02-01-2023 End: 02-01-[address] Magalis Damico Work Phone: [facility] Work Phone: Start: 01-28-2023 End: 01-28-[address] Magalis Damico Work Phone: [facility] Work Phone: Start: 01-28-2023 End: 01-28-[address] Magalis Damico Work Phone: [facility] Start: 12-09-2022 End: 12-09-[address] Magalis Damico Work Phone: [facility] Work Phone: Start: 11-26-2022 Non-patient / Non-visit Dr. Raad Damico Work Phone: [facility] Start: 11-26-2022 End: 11-26-2022 Admission to same day surgery center Dr. Magalis Damico [facility] Start: 11-26-2022 End: 11-26-[address] Magalis Damico Work Phone: [facility] Work Phone: Start: 11-25-2022 End: 11-25-[address] Magalis Damico Work Phone: [facility] Start: 10-27-2022 End: 10-27-[address] Magalis Damico Work Phone: [facility] Work Phone: Start: 10-27-2022 End: 10-27-[address] Magalis Dam[facility] Start: 10-25-2022 End: 10-25-[address] Magalis Damico Work Phone: [facility] Work Phone: Start: 10-25-2022 End: 10-25-[address] Magalis Damico Work Phone: [facility] Start: 08-05-2022 End: 08-05-[address] Magalis Damico Work Phone: [facility] Start: 07-22-2022 End: 07-22-2022 ambulatory [facility] Work Phone: Start: 07-22-2022 End: 07-22-2022 Patient encounter procedure [facility] Start: 02-03-2022 End: 02-03-[address] Magalis Damico Work Phone: [facility] Start: 06-12-2019 End: 06-12-2019 Patient encounter procedure ANGELA BERRY [facility] Start: 06-06-2019 Patient encounter procedure RAHEEM Rao NP [facility] Procedures Date Procedure Procedure Detail Performing Clinician Start: 11-26-2022 Dilation and curetta ge of uterus Dr. Magalis Damico Work Phone: H/O: section History of C-sectio n Dr. Magalis Damico Work Phone: H/O: surgery Status post dila tion and curettage Dr. Magalis Damico Work Phone: Plan of Treatment Date Care Activity Detail Author Start: 11-26-2022 Ambulation without limitation [facility] Start: 11-26-2022 Medical regimen orde rs management [facility] Start: 11-26-2022 Medication education [facility] Start: 11-26-2022 [facility] Start: 11-26-2022 Procedure discontinued [facility] Start: 11-26-2022 Taking patient vital signs [facility] Start: 11-26-2022 Vital signs measurements [facility] Start: 11-26-2022 [facility] Start: 11-26-2022 Anesthesia incomplete/missed ANESTH INC/MISSED AB PROC [facility] Start: 06-02-2023 Tx missed f irst trimester surgical CARE OF MISCARRIAGE [facility] Start: 11-26-2022 Admission procedure [facility] Start: 11-26-2022 [facility] Start: 02-03-2022 Liquid based cervica l cytology screening [facility] Work Phone: Path report.final Dx Spec [facility] Work Phone: Patient referral [facility] Work Phone: Immunizations Immunization Date Immunization Notes Care Provider Fa cility 05-22-2021 Covid (Moderna) Dr. Magalis ibarra Work Phone: [facility] 05-05-2021 tetanus toxoid, redu mendez diphtheria toxoid, and acellular pertussis vaccine, adsorbed Dr. Magalis Damico Work Phone: [facility] 03-30-[address] Magalis Damico Work Phone: [facility] 10-23-2020 Covid (Moderna) Dr. Magalis ibarra Work Phone: [facility] 09-25-2020 [employer] (Moderna) Dr. Magalis Parsons iedel Work Phone: [facility] Payers Date Payer Category Payer Self-pay [id number] 1990 Unknown [id number] 2.16.84 [id number] 1961 Unknown [id number] Unknown [id number] 2.16.8 [id number] Unknown [id number] 2.16.8 [id number] Unknown [id number] 2.16.8 [id number] Unknown [id number] 2.16.8 40.1.638683.3.579.2.462 Unknown [id number] 2.16.8 40.1.487073.3.579.2.462 Unknown [id number] 2.16.8 40.1.353115.3.579.2.462 Unknown [id number] 2.16.8 40.1.045711.3.579.2.462 Unknown [id number] 2.16.8 40.1.224134.3.579.2.462 Unknown [id number] 2.16.8 40.1.513304.3.579.2.462 Unknown [id number] 2.16.8 40.1.805851.3.579.2.462 Unknown [id number] 2.16.8 40.1.281890.3.579.2.462 Unknown [id number] 2.16.8 40.1.069838.3.579.2.462 Unknown [id number] 2.16.8 40.1.078176.3.579.2.462 Unknown [id number] 2.16.8 40.1.710837.3.579.2.462 Unknown [id number] 2.16.8 40.1.063127.3.579.2.462 Unknown [id number] 2.16.8 40.1.252747.3.579.2.462 Unknown [id number] 2.16.8 40.1.643880.3.579.2.462 Unknown [id number] 2.16.8 40.1.000017.3.579.2.462 Social History Date Type Detail Facility Start: 02-03-2022 End: 08-09-2023 Tobacco smoking status NHIS Unknown if ever smoked [facility] Start: 1990 Sex Assigned At Female [facility] Start: 06-19-2024 Tobacco smoking stat us NHIS Never smoked tobacco (finding) [facility] Sex Female [facility] Goals Date Patient Goal Desired Activity /State Mental Status Date Assessment Result Facility 11-26-2022 Cognitive function Voice/Name [facility] Work Phone: Clinical Notes 01-06-2021 to [...] 2025 4:03pm Back pain noneactive February 4:03pm [facility] Work Phone: 1(808) 621-185305-06-2025 Evaluation note* Diagnosis Onset Date Resolution Status [...] pain noneactive February 19, 2 025 4:02pm [facility] Work Phone: 1([phone]) 143-750004-07-2025 Evaluation note* Diagnosis Onset Date Resolution Status [...] Back pain noneactive December 25, 2024 8:24am [employer] Work Phone: [phone] Evaluation note* Diagnosis Onset Date Resolution Status [...] 8:26am Back pain noneactive January 22 8:26am [employer] Work Phone: [phone] Evaluation note* Diagnosis Onset Date Resolution Status [...] Back pain noneactive November 27, 2024 2:21pm [facility] Work Phone: 1(134) 254-521212-31-2024 [facility] Medical Records Department [address] [place] [id number] History Physical Exam 06/26/24 1510 MR#: [id number] Acct: [id number] Name: RACHEAL MERRILL Rep #: [id number] : 1990 34 From: Andree Turk DO PCP: Dr. Magalis Damico MD Status:[facility] Location: [place] [address] History and Physical Date of Admission: 06/26/24 Intake Vital Signs 05/15/2414:59 06/08/2416:04 06/08/2416:04 Height 5 ft 5 in 5 ft 5 in 5 ft 5 in Weight: 130 lb 2 oz BMI 21.6 BP 129/84 H Intake Visit Reasons: diag. 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 Dr. Duarte 06/21/21 Ck 34 live - 5lbs 3oz [facility] Dr. Turk Delivery Date: 06/21/21 Last [...] HX IVF Plan After (more content not included)...[facility]06-02-[address] Martinez [facility] November 26, 2022 12:42pm Note Date/Time November 26, 2022 12:40 pm [facility] Medical Records Department [address] [place] [address] Instructions for Home/Discharge Instructions 11/26/22 1240 MR#: [id number] Acct: [id number] Name: RACHEAL MERRILL Rep #:[id number] : 1990 32 From: Andree Turk DO PCP: Dr. Magalis Damico MD Status:[facility] Discharge Instructions Diet Discharge Diet: No restrictions [...] Up With: Andree Turk DO When: Call [phone] to schedule appointment. Test Results: Test results [...] CC: Dr. Magalis Damico MD ~ Signed [facility] Work Phone: 1(906) 129-342106-02-2023 Procedure [facility] 11-26-2022 History and physical note Author Dr. Martinez [facility] November 26, 2022 10:43am Note Date/Time November 26, 2022 10:43 am [facility] Medical Records Department [address] [place] [address] History & Physical Exam 11/26/22 1043 MR#: [id number] Acct: [id number] Name: RACHEAL MERRILL Rep #:[id number] : 1990 32 From: Andree Turk DO PCP: Dr. Magalis Damico MD Status:[facility] Location: [place] [address] History and Physical Date of Admission: 11/26/22 Intake Vital Signs ? 11/25/2309:34B 11/25/2309:47 Height 5 ft 5 in 5 ft 5 in Weight: ? 127 lb 4 oz BMI ? 21.2 BP ? 133/85 H Intake Visit Reasons:?NOB LMP ? *ivf pt* [employer] Logistics Analyst Required: No Is patient in pain?: No [...] at home:? Yes additional social history:? 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 ? ? 3 ? Elective [...] - 4lbs 1 0oz Female ? ? [facility] Dr. Duarte ? 06/21/21 Ck 34 live - 5lbs 3 oz ? ? ? [facility] Dr. Turk ? Delivery Date: 06/21/21? [...] time of delivery): ?Status:?Acute ?Comment: Whitney (dec), [place] Spouse: Rachdi (5) Depression: ?Status:?Acute ?Comment: [place]. (6) [...] Damico MD; Dr. Andree Turk DO~ Signed [facility] Work Phone: 1([phone]) 494-960907-13-[address] Bryant Reason for [...] of 07/29/2021. Unable to determine chorionicity. 2. [place]-rump length measurements are consistent with supplied dating [...] Screening/Testing Preimplantation Genetic Testing for Aneuploidy at [facility] (date of biopsy: 04/14/2019) - Gender not reported below since Kat and her did not want to know this information at the time of the embryo transfer. ET1: Abnormal: +9p; D6 biopsy; Jesus score ranking: N/A ET2: Normal; D6 biopsy; Jesus score rankin ET3: Abnormal: -22; D6 biopsy; Jesus score ranking: N/A Preimplantation Genetic Testing for Aneuploidy at [facility] (date of biopsy 09/18/2020) - Gender not [...] to 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: 1 in 1,300 ( Non-Spanish: 95% detection) Residual carrier risk for non-classic congenital adrenal hyperplasia due to 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: 1 in 200 ( Non-Spanish: 95% detection) Residual carrier risk for hereditary fructose intolerance: 1 in 1,900 ( Non-Spanish: 96% detection) Residual carrier risk for Zellweger syndrome, [id number]-isphknq: 1 in 6,300 ( detection rate: 80%) Spouse's Prior Screening/Testing Sema4 Expanded Carrier Screen, 283 Genes (02/01/2019) - Positive 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 3 copies of the CKQ70D9 gene detected One copy of the c.952C>T (p.Q318X) pathogenic variant in the QDN39O9 gene 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 One copy of the c.448G>C (p.A150P) pathogenic variant in the ALDOB gene Carrier for Zellweger syndrome, TOE07-zpjrzyq One copy of the c.764dupA (p.M594GlkB349) pathogenic variant in the PEX 10 gene Negative for all other genes tested Residual carrier risk for very long chain acyl-CoA dehydrogenase deficiency: 1 in 920 ( Non-Spanish: 88% detection) and Family History History: Chemic (more content not included)...[facility] Onset Date Resolution Status Depression acute Infertility acute Encounter for routine gynecological examination noneactive [facility] Work Phone: Evaluation noteNo assessment information available [facility] Work Phone: Evaluation note* Diagnosis Onset Date Resolution Status of child acute Depression acute Infertility acute [facility] Work Phone: Evaluation note* Diagnosis Onset Date Resolution Status of child acute Depression acute Infertility acute of child acute Depression acute History of acute Infertility acute Long-chain acyl-CoA dehydrogenase deficiency acute Missed acute acute [id number] acute Twin in first trimester acute of child acute Depression acute History of acute Infertility acute Long-chain acyl-CoA dehydrogenase deficiency acute Missed acute acute [id number] acute Twin in first trimester acute [facility] Work Phone: Evaluation note* Diagnosis Onset Date Resolution Status of child acute Depression acute History of acute Infertility acute Long-chain acyl-CoA dehydrogenase deficiency acute Missed acute acute [id number] acute Twin in first trimester acute of child acute Depression acute History of acute Infertility acute Long-chain acyl-CoA dehydrogenase deficiency acute Missed acute acute [id number] acute Twin in first trimester acute Missed acute Neck pain acute Segmental and somatic dysfunction of cervical region acute Segmental and somatic dysfunction of lumbar region acute Segmental and somatic dysfunction of thoracic region acute [facility] Work Phone: Evaluation note* Diagnosis [...] of thoracic region acute Back pain noneactive [facility] Work Phone: Evaluation note* Diagnosis [...] of thoracic region acute Back pain noneactive [facility] Work Phone: Reason for referral (narrative)No reason for referral information availableR[facility] And Ready Medical Services Work Phone: Summary Purpose Family History No Family History Records Found Relationship Condition Age at Onset Recorded Date/T wu father Malignant neoplasm Unknown sister Malignant neoplasm Unknown Advance Directives No Advanced Directives Records Found Advance Directive Response Recorded Date/ Time Living Will Yes June 25, 021 4:42pm Power of Software Quality Assurance Engineer Yes June 25, 2021 4:42pm Advance Directive Response Recorded Date/ Time Living Will Yes June 25 021 3:42pm Power of Software Quality Assurance Engineer Yes June 25, 2021 3:42pm Advance Directive Response Recorded Date/ Time Name of Medical Power of Software Quality Assurance Engineer Rachid Merrill November 25, 2022 2:43pm Living Will Yes November 25, 2022 2 :43pm Power of Software Quality Assurance Engineer Yes November 25, 2022 2:43pm Advance Directive Response Recorded Date/ Time Living Will Yes November 25, 2022 1 :43pm Power of Software Quality Assurance Engineer Yes November 25, 2022 1:43pm Chief Complaint and Reason for Visit Chief Complaint 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 *ivf pt* Reason for Visit of child Depression Infertility of child Depression History of Infertility Long-chain acyl-CoA dehydrogenase deficiency Missed [id number] Twin in first trimester of child Depression History of Infertility Long-chain acyl-CoA dehydrogenase deficiency Missed [id number] Twin in first trimester Chief Complaint NOB LMP ? *ivf pt* 2 WK D&C EST CARE Reason for Visit of child Depression History of Infertility Long-chain acyl-CoA dehydrogenase deficiency Missed [id number] Twin in first trimester of child Depression History of Infertility Long-chain acyl-CoA dehydrogenase deficiency Missed [id number] Twin in first trimester Missed Neck pain Segmental and somatic dysfunction of cervical region Segmental and somatic dysfunction of lumbar region Segmental and somatic dysfunction of thoracic region Chief Complaint NOB LMP ? 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) Back pain E.03 Back pain Back [...] section and content) DATE CREATED AUTHOR 06/19/2019 [facility] [place] DATE CREATED AUTHOR AUTHOR'S ORGANIZ ATION 06/29/2019 [facility] DATE CREATED AUTHOR AUTHOR'S ORGANIZ ATION 06/15/2021 [facility] DATE CREATED AUTHOR AUTHOR'S ORGANIZ ATION 04/30/2025 [facility] Goals (unrecognized section and content) Goals may be documented in a n alternate sectionGoals may be documented in an alternate sectionGoals may be documented in an alternate sectionGoals may be documented in an alternate section Care Teams (unrecognized sec tion and content) Team Status: Active Member Role Status Dates Dr. Mgaalis Damico MD Family Provider Active Team Status: [...] Status: Inactive Member Role Status Dates Dr. Mgaalis Damico MD Primary Care Provider Active Start: [...] BE BASED ON THE PRIMARY CLINICAL RECORDS. [facility] [email or web address] [facility]. provides no warranty or guarantee of the accuracy or completeness of information in this document.
[2025-06-17 06:49] LABS: Hematocrit 41.1 % (37-47); Hemoglobin 13.6 g/dL (12.0-15.0); Mean Corp Hgb Conc 33.1 g/dL (32-36); Mean Corpuscular Volume 89.7 fL (81-99); Mean Platelet Vol. 10.8 fl (6.2-12.0); Platelet Count 333 K/mm3 (150-450); RBC Distribution Width CV 11.8 % (11.6-14.6); RBC Distribution Width SD 38.1 fl (35.1-43.9); Red Blood Count 4.58 M/mm3 (4.2-5.4); White Blood Count 4.9 K/mm3 (4.4-11.0)
[2025-06-17 07:26] LABS: hCG Titer Quant., Serum < 1 mIU/mL (<9 non-preg)
[2025-06-17 07:46] LABS: AST(SGOT) 20 U/L (<=31); Alanine Aminotransfer ALT/SGPT 20 U/L (<=34); Albumin, Serum 4.7 g/dL (3.5-5.0); Alkaline Phosphatase 66 U/L (35-104); Anion Gap 13 (5-15); BUN 16 mg/dL (4-19); BUN/Creat Ratio 19.0 RATIO (10-20); Calcium,Total 9.5 mg/dL (7.6-11.0); Carbon Dioxide 24.7 mmol/L (21.0-32.0); Chloride 105 mmol/L (98-108); Follicle Stimulating Hormone 7.5 mIU/mL; Free T3 2.8 pg/mL (2.18-3.98); Globulin 2.6 g/dL (2.2-4.2); Glucose 88 mg/dL (70-99); HIV Nonreactive (Nonreactive); Hepatitis B Surface Antigen Nonreactive (Nonreactive); Hepatitis C Antibody Nonreactive (Nonreactive); Potassium 4.3 mmol/L (3.3-5.1); Syphilis Antibodies Nonreactive (Nonreactive); Vitamin D,25 Hydroxy 35.8 ng/mL (30-100)
== END | disposition home or self-care (01) ==
PROVIDERS: PCP Family Medicine; Referring Provider Obstetrics & Gynecology Reproductive Endocrinology; Visit Provider Obstetrics & Gynecology Reproductive Endocrinology
DX: Z31.41 Encounter for fertility testing (principal); N96 Recurrent pregnancy loss
CPT/HCPCS: 36415; 80053; 81240; 81241; 82306; 82670; 83001; 83002; 83036; 83516; 83525; 84144; 84146; 84403; 84439; 84443; 84481; 84702; 85027; 85302; 85303; 85305; 85306; 86038; 86146; 86147; 86376; 86703; 86762; 86780; 86787; 86803; 86850; 86900; 86901; 87340